=== PATIENT | male | born 1940 | race Caucasian/White ===

== ENCOUNTER 2016-06-26 17:40 | Inpatient (IN) | payer MEDICARE ==
[2016-06-26] MEDS ORDERED: SODIUM CHLORIDE 0.9% 500 ML IV STA (19:45)
[2016-06-26] MEDS ORDERED: ALBUTEROL NEBULIZED 2.5 MG/3 ML INHALATION STA (19:45)
[2016-06-26] MEDS ORDERED: IPRATROPIUM 0.5 MG/2.5 ML NEBU INHALATION STA (19:45)
[2016-06-26] MEDS ORDERED: methylPREDNISolone SOD SUCCI 125 MG/2 ML VIAL IV STA (19:45)
--- NOTE | 2016-06-26 20:02 | ED ---
Psych HPI - General Chief Complaint: Psychiatric Symptoms Stated Complaint: diff breathing Time Seen by Provider: 06/26/16 19:28 Source: patient, RN notes reviewed Mode of arrival: ambulatory - History of Present Illness Initial Comments: 75-year-old male presents to the emergency department with a chief complaint of shortness of breath. Patient states that he has chronic nasal congestion. Patient states he has noticed that this has been continued but now he just has a little bit more but currently is unable to get it out. Patient states that he hasn't had any fever or chills with this. Patient states that he also was recently put on a fentanyl patch. Patient states all this with was having some thoughts of possible thoughts of suicide never had a plan he is having these unusual thoughts. Patient states this morning he woke up and he had some or these thoughts as well. Patient states is from the fentanyl patch. Patient states this time he has no thoughts never had a plan.Patient denies any recent fever, chills, shortness of breath, chest pain, back pain, abdominal pain, nausea vomiting, numbness or tingling, dysuria or hematuria, constipation or diarrhea, headaches or visual changes, or any other current symptoms. - Related Data Home Medications Medication Instructions Recorded Confirmed Albuterol Sulfate [Ventolin HFA] 1 - 2 puff INHALATION Q6H PRN 06/25/14 06/26/16 Aspirin 81 mg PO DAILY 06/25/14 06/25/14 Finasteride [Proscar] 5 mg PO DAILY 06/25/14 06/26/16 Levothyroxine Sodium [Synthroid] 175 mcg PO DAILY 06/25/14 06/26/16 Lisinopril [Prinivil] 10 mg PO DAILY 06/25/14 06/26/16 amLODIPine [Norvasc] 10 mg PO DAILY 06/25/14 06/26/16 predniSONE 10 mg PO DAILY 06/25/14 06/26/16 Budesonide/Formoterol Fumarate 2 puff INHALATION RT-BID 06/26/16 06/26/16 [Symbicort 160-4.5 Mcg Inhaler] Montelukast [Singulair] 10 mg PO DAILY 06/26/16 06/26/16 Pregabalin [Lyrica] 150 mg PO BID 06/26/16 06/26/16 Saline Nasal [place] 1 spray EA NOSTRIL BID 06/26/16 06/26/16 fentaNYL 25MCG/HR PATCH [Duragesic 25 mcg TRANSDERM Q72H 06/26/16 06/26/16 25MCG/HR] oxyCODONE HCL/ACETAMINOPHEN 1 tab PO QID PRN 06/26/16 06/26/16 [Percocet 10-325 mg] prednisoLONE ACETATE [Pred Forte 2 sprays EA NOSTRIL BID 06/26/16 06/26/16 1%] Allergies Allergy/AdvReac Type Severity Reaction Status Date / Time cefuroxime axetil Allergy Rash/Hives Verified 06/26/16 19:50 [From Ceftin] Review of Systems ROS Statement: Those systems with pertinent positive or pertinent negative responses have been documented in the HPI. ROS Other: All systems not noted in ROS Statement are negative. Past Medical History Past Medical History: Asthma, Cancer, Hypertension, Skin Disorder, Thyroid Disorder, Vascular Disorder Additional Past Medical History / Comment(s): folicular carcinoma (thyroid) History of Any Multi-Drug Resistant Organisms: None Reported Past Surgical History: Heart Catheterization With Stent Additional Past Surgical History / Comment(s): polyp surgery, thyroid surgery, stents x2, melanoma removed from face Past Anesthesia/Blood Transfusion Reactions: No Reported Reaction Date of Last Stent Placement:: 2005 Past Psychological History: Anxiety, Depression Smoking Status: Never smoker Past Alcohol Use History: Occasional Past Drug Use History: None Reported - Past Family History Father Family Medical History: Cancer Additional Family Medical History / Comment(s): colon ca General Exam - General Exam Comments Initial Comments: General: The patient is awake and alert, in no distress, and does not appear acutely ill. Eye: Pupils are equal, round and reactive to light, extra-ocular movements are intact; there is normal conjunctiva bilaterally. No signs of icterus. Ears, nose, mouth and throat: There are moist mucous membranes and no oral lesions. Neck: The neck is supple, there is no tenderness. Cardiovascular: There is a regular rate and rhythm. No murmur, rub or gallop is appreciated. Respiratory: Lungs are clear to auscultation, respirations are non-labored, breath sounds are equal. wheeze noted, no stridor, rales, or rhonchi. Gastrointestinal: Soft, non-distended, non-tender abdomen without masses or organomegaly noted. There is no rebound or guarding present. No CVA tenderness. Bowel sounds are unremarkable. Back: There is no tenderness to palpation in the midline. There is no obvious deformity. No rashes noted. Musculoskeletal: Normal ROM, no tenderness, There is no pedal edema. There is no calf tenderness or swelling. Sensation intact. Pulses equal bilaterally 2+. Neurological: CN II-XII intact, There are no obvious motor or sensory deficits. Coordination appears grossly intact. Speech is normal. Skin: Skin is warm and dry and no rashes or lesions are noted. Psychiatric: Cooperative, appropriate mood & affect, normal judgment. Limitations: no limitations Course Vital Signs 06/26/16 06/26/16 06/26/16 18:06 20:30 20:31 Temperature 97.3 F L Pulse Rate 70 62 62 Respiratory 18 24 Rate Blood Pressure 173/81 178/85 O2 Sat by Pulse 94 L 99 Oximetry 06/26/16 06/26/16 21:54 22:00 Temperature Pulse Rate 94 94 Respiratory 18 20 Rate Blood Pressure 172/81 177/84 O2 Sat by Pulse 94 L 94 L Oximetry - Reevaluation(s) Reevaluation #1: 06/26/16 21:59 Patient did develop chest pain here in the emergency department he did have an elevated troponin at this time an EKG was repeated and the second EKG does show some ST depression in leads V3 V4 V5 and V6 which is new compared to previous EKG. At this time patient was given an aspirin as well as nitroglycerin which didn't completely resolve his pain. We'll intensity heparin was started for the patient. Reevaluation #2: 06/26/16 23:28 Patient's repeat troponin does not appear to be elevated and EKG appears to be stable at this time. We will admit continue heparin and we for cardia consult. Medical Decision Making - Medical Decision Making 75-year-old male presents emergency department with a chief complaint of shortness of breath as well as his true suicidal thoughts yesterday and ever since starting the fentanyl patch. Patient did come back with an elevated troponin. Patient stabilization. This time we are pending a repeat troponin. Patient was started on heparin. We will the patient to the hospital for continued observation and lab work. As discussed with the patient's family and they are in agreement with the plan. We will consult psychology patient suicidal thoughts. On the patient's and family's questions have been answered and plan. - Lab Data Result diagrams: 06/26/16 19:40 06/26/16 19:40 Lab Results 06/26/16 06/26/16 06/26/16 Range/Units 14:40 19:40 19:40 WBC 7.2 (3.8-10.6) k/uL RBC 4.29 L (4.30-5.90) m/uL Hgb 13.8 (13.0-17.5) gm/dL Hct 40.6 (39.0-53.0) % MCV 94.8 (80.0-100.0) fL MCH 32.2 (25.0-35.0) pg MCHC 34.0 (31.0-37.0) g/dL RDW 12.8 (11.5-15.5) % Plt Count 249 (150-450) k/uL Neutrophils % 82 % Lymphocytes % 10 % Monocytes % 5 % Eosinophils % 2 % Basophils % 0 % Neutrophils # 5.9 (1.3-7.7) k/uL Lymphocytes # 0.7 L (1.0-4.8) k/uL Monocytes # 0.4 (0-1.0) k/uL Eosinophils # 0.1 (0-0.7) k/uL Basophils # 0.0 (0-0.2) k/uL PT (9.0-12.0) sec INR (<1.1) APTT (22.0-30.0) sec D-Dimer (<0.60) mg/L FEU Sodium (137-145) mmol/L Potassium (3.5-5.1) mmol/L Chloride (98-107) mmol/L Carbon Dioxide (22-30) mmol/L Anion Gap mmol/L BUN (9-20) mg/dL Creatinine (0.66-1.25) mg/dL Est GFR (MDRD) Af Amer (>60 ml/min/1.73 sqM) Est GFR (MDRD) Non-Af (>60 ml/min/1.73 sqM) Glucose (74-99) mg/dL Calcium (8.4-10.2) mg/dL Total Bilirubin (0.2-1.3) mg/dL AST (17-59) U/L ALT (21-72) U/L Alkaline Phosphatase (38-126) U/L Total Creatine Kinase 110 (55-170) U/L CK-MB (CK-2) 1.8 (0.0-2.4) ng/mL CK-MB (CK-2) Rel Index 1.6 Troponin I 0.082 H* (0.000-0.034) ng/mL Total Protein (6.3-8.2) g/dL Albumin (3.5-5.0) g/dL Urine Color Yellow Urine Appearance Clear (Clear) Urine pH 6.0 (5.0-8.0) Ur Specific [place] 1.011 (1.001-1.035) Urine Protein Negative (Negative) Urine Glucose (UA) Negative (Negative) Urine Ketones Negative (Negative) Urine Blood Negative (Negative) Urine Nitrate Negative (Negative) Urine Bilirubin Negative (Negative) Urine Urobilinogen <2.0 (<2.0) mg/dL Ur Leukocyte Esterase Negative (Negative) Urine Opiates Screen Not Detected (NotDetected) Ur Oxycodone Screen Detected H (NotDetected) Urine Methadone Screen Not Detected (NotDetected) Ur Propoxyphene Screen Not Detected (NotDetected) Ur Barbiturates Screen Not Detected (NotDetected) U Tricyclic Antidepress Not Detected (NotDetected) Ur Phencyclidine Scrn Not Detected (NotDetected) Ur Amphetamines Screen Not Detected (NotDetected) U Methamphetamines Scrn Not Detected (NotDetected) U Benzodiazepines Scrn Not Detected (NotDetected) Urine Cocaine Screen Not Detected (NotDetected) U Marijuana (THC) Screen Not Detected (NotDetected) 06/26/16 06/26/16 06/26/16 Range/Units 19:40 19:40 22:14 WBC (3.8-10.6) k/uL RBC (4.30-5.90) m/uL Hgb (13.0-17.5) gm/dL Hct (39.0-53.0) % MCV (80.0-100.0) fL MCH (25.0-35.0) pg MCHC (31.0-37.0) g/dL RDW (11.5-15.5) % Plt Count (150-450) k/uL Neutrophils % % Lymphocytes % % Monocytes % % Eosinophils % % Basophils % % Neutrophils # (1.3-7.7) k/uL Lymphocytes # (1.0-4.8) k/uL Monocytes # (0-1.0) k/uL Eosinophils # (0-0.7) k/uL Basophils # (0-0.2) k/uL PT 9.9 (9.0-12.0) sec INR 1.0 (<1.1) APTT 23.7 (22.0-30.0) sec D-Dimer 0.87 H (<0.60) mg/L FEU Sodium 142 (137-145) mmol/L Potassium 4.0 (3.5-5.1) mmol/L Chloride 104 (98-107) mmol/L Carbon Dioxide 29 (22-30) mmol/L Anion Gap 9 mmol/L BUN 16 (9-20) mg/dL Creatinine 0.76 (0.66-1.25) mg/dL Est GFR (MDRD) Af Amer >60 (>60 ml/min/1.73 sqM) Est GFR (MDRD) Non-Af >60 (>60 ml/min/1.73 sqM) Glucose 105 H (74-99) mg/dL Calcium 9.5 (8.4-10.2) mg/dL Total Bilirubin 0.6 (0.2-1.3) mg/dL AST 26 (17-59) U/L ALT 35 (21-72) U/L Alkaline Phosphatase 79 (38-126) U/L Total Creatine Kinase (55-170) U/L CK-MB (CK-2) (0.0-2.4) ng/mL CK-MB (CK-2) Rel Index Troponin I 0.076 H* (0.000-0.034) ng/mL Total Protein 7.2 (6.3-8.2) g/dL Albumin 4.5 (3.5-5.0) g/dL Urine Color Urine Appearance (Clear) Urine pH (5.0-8.0) Ur Specific [place] (1.001-1.035) Urine Protein (Negative) Urine Glucose (UA) (Negative) Urine Ketones (Negative) Urine Blood (Negative) Urine Nitrate (Negative) Urine Bilirubin (Negative) Urine Urobilinogen (<2.0) mg/dL Ur Leukocyte Esterase (Negative) Urine Opiates Screen (NotDetected) Ur Oxycodone Screen (NotDetected) Urine Methadone Screen (NotDetected) Ur Propoxyphene Screen (NotDetected) Ur Barbiturates Screen (NotDetected) U Tricyclic Antidepress (NotDetected) Ur Phencyclidine Scrn (NotDetected) Ur Amphetamines Screen (NotDetected) U Methamphetamines Scrn (NotDetected) U Benzodiazepines Scrn (NotDetected) Urine Cocaine Screen (NotDetected) U Marijuana (THC) Screen (NotDetected) 06/26/16 20:35 Normal sinus rhythm, incomplete right bundle-branch, T-wave is flat in V5 and V6 , no ST elevation 06/26/16 22:00 Normal sinus rhythm with sinus arrhythmia 96, incomplete right bundle jamil, ST depression in leads V3 through V6, prolonged QT 06/26/16 23:00 Normal sinus rhythm 82, incomplete right bundle-branch block, as she weighs inversion in V4 5 and aVF similar to previous EKG. Disposition Clinical Impression: Suicidal thoughts, NSTEMI (non-ST elevated myocardial infarction) Disposition: ADMITTED IP TO THIS [facility] Condition: Stable Referrals: Krystian Salazar MD [Primary Care Provider] - 1-2 days Time of Disposition: 23:31 Decision Date: 06/26/16 Decision Time: 23:31
[2016-06-26 20:38] LABS: Basophils % (A) 0 %; CH 32.9; CHCM 34.9; Eosinophils # (A) 0.1 k/uL (0-0.7); Eosinophils % (A) 2 %; HCT 40.6 % (39.0-53.0); HDW 2.59; HGB 13.8 gm/dL (13.0-17.5); Luc # (Auto) 0.08; Luc % (Auto) 1; Lymphocytes # (A) 0.7 k/uL (1.0-4.8); Lymphocytes % (A) 10 %; MCH 32.2 pg (25.0-35.0); MCV 94.8 fL (80.0-100.0); Mean Platelet Volume 7.4; Monocytes # (A) 0.4 k/uL (0-1.0); Monocytes % (A) 5 %; Neutrophils # (A) 5.9 k/uL (1.3-7.7); Neutrophils % (A) 82 %; RBC 4.29 m/uL (4.30-5.90); RDW 12.8 % (11.5-15.5); WBC 7.2 k/uL (3.8-10.6); WBC (Perox) 7.42
[2016-06-26 20:41] LABS: Appearance,Urine Clear (Clear); Bilirubin,Urine Negative (Negative); Glucose,Urine (UA) Negative (Negative); Ketones,Urine Negative (Negative); Leukocyte Esterase,Urine Negative (Negative); Nitrite,Urine Negative (Negative); Protein,Urine Negative (Negative); Specific Gravity,Urine 1.011 (1.001-1.035); UA Billing (MACRO vs. MICRO) CHEM; Urobilinogen,Urine <2.0 mg/dL (<2.0)
[2016-06-26 20:51] LABS: ALT 35 U/L (21-72); AST 26 U/L (17-59); Alkaline Phosphatase 79 U/L (38-126); Anion Gap 9 mmol/L; Blood Urea Nitrogen 16 mg/dL (9-20); Calcium 9.5 mg/dL (8.4-10.2); Carbon Dioxide 29 mmol/L (22-30); Chloride 104 mmol/L (98-107); Glucose 105 mg/dL (74-99); Non-African American GFR(MDRD) >60 (>60 ml/min/1.73 sqM); Partial Thromboplastin Time 23.7 sec (22.0-30.0); Prothrombin Time 9.9 sec (9.0-12.0); Sodium 142 mmol/L (137-145); Total Bilirubin 0.6 mg/dL (0.2-1.3); Total Protein 7.2 g/dL (6.3-8.2)
[2016-06-26] MEDS ORDERED: RX INFO: IV CONTRAST WAS GIVEN 1 EACH MISC MISCELLANE PRN (21:03)
[2016-06-26 21:04] LABS: Creatine Kinase MB 1.8 ng/mL (0.0-2.4)
[2016-06-26 21:05] LABS: Troponin I 0.082 ng/mL (0.000-0.034)
[2016-06-26] MEDS ORDERED: NITROGLYCERIN SL TABS 0.4 MG TAB SUBLINGUAL STA (21:41)
[2016-06-26] MEDS ORDERED: HEPARIN SODIUM,PORCINE 5,000 UNIT/ML 1 ML VIAL IV ONE (21:50)
[2016-06-26] MEDS ORDERED: HEPARIN SODIUM,PORCINE 5,000 UNIT/ML 1 ML VIAL IV PRN (21:50)
[2016-06-26] MEDS ORDERED: ASPIRIN 81 MG CHEW PO STA (21:58)
--- NOTE | 2016-06-26 22:25 | CT ---
EXAMINATION TYPE: CT chest angio for PE DATE OF EXAM: 06/26/2016 10:17 PM COMPARISON: NONE HISTORY: Chest pain CT DLP: 300.7 mGycm Automated exposure control for dose reduction was used. CONTRAST: CT Chest for pulmonary embolism performed with with IV Contrast, patient injected with 100 mL of Omni paque 350. FINDINGS: There are 3-D post processed images. Lungs are clear of consolidation. There is no pleural effusion. There is no sign of a pulmonary mass. There is no pericardial effusion. Heart size is normal. Thoracic aorta is atheromatous. There is no evidence of aneurysm or dissection. There is normal contrast opacification of the pulmonary arteries. I see no filling defect. There are no hilar masses. There is no mediastinal adenopathy. IMPRESSION: Atherosclerotic vascular disease. No evidence of pulmonary embolism. Minimal pulmonary fibrotic port[place] es at the lung bases.
[2016-06-26] MEDS: HEPARIN SODIUM,PORCINE/D5W PMX 25,000 UNIT in DEXTROSE/WATER 1 500ML.BAG IV SCH (22:33)
[2016-06-26] MEDS ORDERED: ALBUTEROL NEBULIZED 2.5 MG/3 ML INHALATION PRN (23:37)
[2016-06-27 01:22] VITALS: BMI 26.2
[2016-06-27] MEDS: oxyCODONE-APAP 10-325MG 1 EACH TAB PO PRN ×2 (01:48→20:30)
[2016-06-27] MEDS: SODIUM CHLORIDE 0.9% 1,000 ML IV SCH ×2 (01:48→12:36)
[2016-06-27 02:22] LABS: Creatine Kinase MB 1.3 ng/mL (0.0-2.4)
[2016-06-27 02:36] LABS: Troponin I 0.061 ng/mL (0.000-0.034)
[2016-06-27 02:48] VITALS: RESP 18
[2016-06-27 05:40] LABS: Basophils % (A) 0 %; CH 32.6; CHCM 34.4; Eosinophils % (A) 0 %; HCT 36.4 % (39.0-53.0); HDW 2.55; HGB 12.1 gm/dL (13.0-17.5); Luc # (Auto) 0.01; Luc % (Auto) 0; Lymphocytes # (A) 0.3 k/uL (1.0-4.8); Lymphocytes % (A) 7 %; MCH 31.6 pg (25.0-35.0); MCHC 33.2 g/dL (31.0-37.0); MCV 95.2 fL (80.0-100.0); Mean Platelet Volume 6.9; Monocytes # (A) 0.1 k/uL (0-1.0); Monocytes % (A) 2 %; Neutrophils # (A) 4.2 k/uL (1.3-7.7); Neutrophils % (A) 90 %; RBC 3.83 m/uL (4.30-5.90); RDW 12.9 % (11.5-15.5); WBC 4.6 k/uL (3.8-10.6); WBC (Perox) 4.92
[2016-06-27 06:06] LABS: Cholesterol 223 mg/dL (<200); HDL Cholesterol 66 mg/dL (40-60); Triglycerides 60 mg/dL (<150)
[2016-06-27] MEDS: LEVOTHYROXINE 75 MCG TAB PO SCH (06:37)
[2016-06-27] MEDS: LEVOTHYROXINE 100 MCG TAB PO SCH (06:37)
[2016-06-27] MEDS: SYMBICORT 160-4.5 MCG INHALER INHALATION SCH ×2 (08:35→19:12)
[2016-06-27] MEDS: ASPIRIN 325 MG TAB PO SCH (08:51)
[2016-06-27] MEDS: predniSONE 10 MG TAB PO SCH (08:51)
[2016-06-27] MEDS: LISINOPRIL 10 MG TAB PO SCH (08:51)
[2016-06-27] MEDS: FINASTERIDE 5 MG TAB PO SCH (08:51)
[2016-06-27] MEDS: PREGABALIN 75 MG CAP PO SCH ×3 (08:51→20:20)
[2016-06-27] MEDS: MONTELUKAST 10 MG TAB PO SCH (08:51)
[2016-06-27] MEDS: amLODIPine 10 MG TAB PO SCH (08:51)
[2016-06-27] MEDS: SODIUM CHLORIDE 0.65% NASAL SPRAY 44 ML BTL NASAL SCH ×2 (08:57→20:20)
[2016-06-27 09:25] LABS: Creatine Kinase MB 1.3 ng/mL (0.0-2.4)
[2016-06-27 09:30] LABS: Troponin I 0.059 ng/mL (0.000-0.034)
--- NOTE | 2016-06-27 11:31 | CONS ---
DATE OF CONSULTATION: Sp Sam is a 75-year-old male patient who presented to the emergency room complaining of shortness of breath. He had appointment with primary cbx operator, Dr. Casey Puga last week, but he was not feeling well. He says he has chronic nasal congestion and in the past CT scan has shown hyperdense lesion suggestive of aspergillus and this was in 2015. He complained of shortness of breath and his ECG initially showed T-wave inversions in leads V5 and V6. Subsequently he became more short of breath and had some chest discomfort. At that time he had sinus tachycardia with upsloping ST depressions but new, from V2 to V6. Today his 12-lead ECG shows T wave inversions in V4, V5, V6. He has known coronary disease and has had a coronary stent placed many years back with Dr. Casey Puga. His medications at home include albuterol, aspirin, finasteride, levothyroxine, lisinopril, amlodipine, Lyrica, Singulair, fentanyl and prednisone. REVIEW OF SYSTEMS: No fever, chills, or rigors. No cough or expectoration. No nausea, vomiting or diarrhea. No hematuria or dysuria. No strokes or seizures. No skin lesions. Musculoskeletal, he has severe back pain and he has metastatic cancer in the lower spine. He has thyroid cancer. SOCIAL HISTORY: He is a never smoker. Past medical history follicular carcinoma of the thyroid, history of COPD. Family history of colon CA. On examination, his blood pressure on admission was 173/81 mmHg and 178/85 mmHg, pulse rate in the 60s. Breath sounds are reduced bilaterally but there are no rhonchi or crackles at this time. Definitely the breath sounds are reduced bilaterally. Heart sounds are S1 and S2 soft. No murmurs, no gallops. Abdomen is soft, nontender. Extremities are warm. No edema. The 12-ECGs as described above. The labs were reviewed and his hemoglobin is 12.1. White count is normal. The electrolytes are normal. Liver functions normal. Troponins borderline but they show a definite downward trend. LDL is 145. IMPRESSION: 1. Non-Q-wave myocardial infarction. 2. Congestive heart failure with shortness of breath during this admission. 3. Dyslipidemia. 4. Coronary stenting for coronary artery disease in the past with Dr. Casey Puga. 5. 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 6. Uncontrolled hypertension. Medication list was reviewed. I would add metoprolol 50 mg twice daily as well as statins to his current regimen and maximize antihypertensive therapy.
[2016-06-27] MEDS: NITROGLYCERIN SL TABS 0.4 MG TAB SUBLINGUAL PRN ×2 (12:35→18:20)
[2016-06-27] MEDS: METOPROLOL TARTRATE 50 MG TAB PO SCH ×2 (12:36→20:19)
[2016-06-27] MEDS: ATORVASTATIN 40 MG TAB PO SCH (12:36)
--- NOTE | 2016-06-27 13:24 | P.CNPUL ---
History of Present Illness Consult date: 06/27/16 Requesting physician: Michaela Lopez Reason for consult: dyspnea, COPD Chief complaint: Shortness of breath, chest tightness History of present illness: This is a very pleasant 75-year-old gentleman who follows with Dr. Salazar as his primary care physician. 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 He has been seen at the [facility] and has undergone radiation therapy there as well as at [facility]. He has had continued and ongoing pain and follows with Dr. Watters who has him on [place], Percocet and was recently started on a fentanyl patch. The patient was also recently seen for recurrent polyps in his sinuses at the [facility] and there was a new nasal spray started with steroids. The last few days the patient has felt anxious, nervous and did have some suicidal thoughts all of which were quite new for him. He also developed shortness of breath and chest tightness. He presented here to the emergency room for the same. While there he states he did receive a breathing treatment with several vials of medicine and he subsequently developed worsening chest tightness. The CT angiogram ruled out pulmonary embolism. His lungs were clear of consolidation. There is no pleural effusion. No pulmonary mass. No pericardial effusion. There was some noted atherosclerotic vascular disease only. Minimal pulmonary fibrotic changes at the bases. Lab results did reveal a small troponin leak and cardiology was consulted as well. Presently, the patient is seen in consultation on the selective care unit. He is awake and alert in no acute distress. He recently had recurrent chest tightness and was given sublingual nitroglycerin with some minimal relief. An EKG did reveal some T-wave inversions in the lateral leads. He denies any worsening shortness of breath at this time. He is maintaining good O2 saturations in the mid 90s on room air. He has been afebrile. No leukocytosis. Review of Systems 14 point review of system was conducted. All negative other than as mentioned in the HPI. 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 back pain. foot numbness History of Any Multi-Drug Resistant Organisms: None Reported Past Surgical History: Heart Catheterization With Stent Additional Past Surgical History / Comment(s): polyp surgery, thyroid surgery, stents x2, melanoma removed from face Past Anesthesia/Blood Transfusion Reactions: No Reported Reaction Date of Last Stent Placement:: 2005 Past Psychological History: Anxiety, Depression Smoking Status: Former smoker Past Alcohol Use History: Occasional Past Drug Use History: None Reported - Past Family History Father Family Medical History: Cancer Additional Family Medical History / Comment(s): colon ca Medications and Allergies Home Medications Medication Instructions Recorded Confirmed Type Albuterol Sulfate [Ventolin HFA] 1 - 2 puff INHALATION Q6H PRN 06/25/14 History Aspirin 81 mg PO DAILY 06/25/14 06/27/16 History Finasteride [Proscar] 5 mg PO DAILY 06/25/14 06/26/16 History Levothyroxine Sodium [Synthroid] 175 mcg PO DAILY 06/25/14 06/26/16 History Lisinopril [Prinivil] 10 mg PO DAILY 06/25/14 06/26/16 History amLODIPine [Norvasc] 10 mg PO DAILY 06/25/14 06/26/16 History predniSONE 10 mg PO DAILY 06/25/14 06/26/16 History Budesonide/Formoterol Fumarate 2 puff INHALATION RT-BID 06/26/16 06/26/16 History [Symbicort 160-4.5 Mcg Inhaler] Montelukast [Singulair] 10 mg PO DAILY 06/26/16 06/26/16 History Pregabalin [Lyrica] 150 mg PO BID 06/26/16 06/26/16 History Saline Nasal [place] 1 spray EA NOSTRIL BID 06/26/16 06/26/16 History fentaNYL 25MCG/HR PATCH [Duragesic 25 mcg TRANSDERM Q72H 06/26/16 06/26/16 History 25MCG/HR] oxyCODONE HCL/ACETAMINOPHEN 1 tab PO QID PRN 06/26/16 06/26/16 History [Percocet 10-325 mg] prednisoLONE ACETATE [Pred Forte 2 sprays EA NOSTRIL BID 06/26/16 06/26/16 History 1%] Allergies Allergy/AdvReac Type Severity Reaction Status Date / Time cefuroxime axetil Allergy Rash/Hives Verified 06/26/16 19:50 [From Ceftin] Physical Exam Vitals: Vital Signs Temp Pulse Pulse Resp BP BP Pulse Ox 06/27/16 08:00 97.3 F L 72 18 156/81 95 06/27/16 04:00 97.2 F L 82 18 127/69 95 06/27/16 01:15 97.3 F L 76 18 152/88 95 06/27/16 00:57 84 162/79 96 Intake and Output 06/26/16 06/27/16 06/27/16 22:59 06:59 14:59 Intake Total 560.024 Output Total 500 Balance 60.024 Intake: Intake, IV Titration 560.024 Amount Heparin Sodium,Porcine/ 160.024 D5w Pmx 25,000 unit In Dextrose/Water 1 500ml. bag @ 12 UNITS/KG/HR 19. 92 mls/hr IV .Q24H JOE Rx #:[id number] Sodium Chloride 0.9% 1, 400 000 ml @ 100 mls/hr IV . Q10H JOE Rx#:[id number] Output: Urine 500 Other: Weight 76.2 kg GENERAL EXAM: Alert, in no apparent distress. HEAD: Normocephalic. EYES: Normal reaction of pupils, equal size. NOSE: Clear with pink turbinates. THROAT: No erythema or exudates. NECK: No masses, no JVD. CHEST: No chest wall deformity. LUNGS: Equal air entry with faint crackles in the posterior bases. Diminished. CVS: S1 and S2 normal with no audible murmurs, regular rhythm. ABDOMEN: No hepatosplenomegaly, normal bowel sounds, no guarding or rigidity. Extremities: There is no peripheral edema. No clubbing, no cyanosis. Peripheral pulses are intact. Results - Laboratory Findings CBC and BMP: 06/27/16 05:09 06/26/16 19:40 PT/INR, D-dimer PT 9.9 sec (9.0-12.0) 06/26/16 19:40 INR 1.0 (<1.1) 06/26/16 19:40 D-Dimer 0.87 mg/L FEU (<0.60) H 06/26/16 19:40 Abnormal lab findings: Abnormal Labs 06/27/16 06/27/16 06/27/16 01:20 05:09 05:09 RBC 3.83 L Hgb 12.1 L Hct 36.4 L Lymphocytes # 0.3 L APTT 34.3 H Troponin I 0.061 H* Cholesterol LDL Cholesterol, Calc HDL Cholesterol 06/27/16 06/27/16 06/27/16 05:09 07:35 12:04 RBC Hgb Hct Lymphocytes # APTT 51.8 H Troponin I 0.059 H* Cholesterol 223 H LDL Cholesterol, Calc 145 H HDL Cholesterol 66 H - Diagnostic Findings CT scan - chest: image reviewed Assessment and Plan Plan: Impression: #1 Dyspnea, multifactorial in a patient with a known history of chronic obstructive pulmonary disease with remote history of smoking, anxiety, severe back pain, and chest discomfort with mild troponin leak. #2 Acute exacerbation chronic obstructive pulmonary disease. #3 Chest pain in a patient with previous history of coronary artery disease and stent placements with mild troponin leak and T-wave inversions in lateral leads. #3 Metastatic lesions to L5 status post radiation therapy with continued and ongoing pain issues and requiring narcotics in the form of Percocet and fentanyl patch. #5 Suicidal ideations possibly related to new use of fentanyl patch. #6 Coronary artery disease with previous stent placement. #7 Hypothyroidism secondary to history of thyroid cancer status post thyroidectomy. #8 hypertension. Plan: The patient was seen and evaluated by Dr. Travis. His CAT scan of the chest and labs were reviewed. Continue with his bronchodilators and may switch him from albuterol to Xopenex to avoid any further tachyarrhythmias. We'll continue with his Symbicort. He is on Singulair as well. Cardiology is on the case regarding the chest pain and troponin leak. He'll need a psych evaluation regarding his suicidal ideations. We will cautiously use narcotics to control his back pain secondary to the metastatic lesions. We'll continue to follow make further recommendations based on his clinical status. Time with Patient: Greater than 30
[2016-06-27] MEDS: LEVALBUTEROL NEB 1.25 MG/3 ML AMP INHALATION SCH ×2 (15:13→19:12)
--- NOTE | 2016-06-27 18:10 | P.CN ---
Psychiatric Consult - . Consult date: 06/27/16 Consult:: 06/27/16 18:05 IDENTIFYING DATA: 75-year-old male patient HPI: Patient admitted to the medical floor at [facility] with complaint of shortness of breath. Per chart history patient also described chronic nasal congestion. He has been dealing with pain issues and was recently placed on a fentanyl patch which was new and also a new pain medication as well as lyrica. He says he has no idea what it did to him but it put him on cloud 9 were he was feeling confused and relays that he did have some thoughts about being better off gone as well as thoughts of harm to himself. He states that he is not feeling confused anymore and no longer has any thoughts of harm to himself. He describes his mood today as pretty good. PAST PSYCHIATRIC HISTORY: Patient denies any psychiatric history. He has never had any psychiatric hospital elations. He has no history of suicide attempts. PMH: Asthma, hypertension, in disorder, vascular disorder, melanoma, COPD, thyroid cancer with thyroidectomy, coronary artery disease with stent placement , metastatic focus L5 spine ALLERGIES: Cefuroxime MEDICATIONS: Norvasc, aspirin, Lipitor, Symbicort, Proscar, heparin, Xopenex, Synthroid, Zestril, Lopressor, singular, Nitrostat when necessary, Percocet when necessary, prednisone, Pred Forte day, Lyrica, deep-sea nasal CHEMICAL DEPENDENCY HISTORY: Occasional history of alcohol in the past. FAMILY PSYCHIATRIC HISTORY: Denies FAMILY CHEMICAL DEPENDENCY HISTORY: None known at this time. SOCIAL HISTORY: Currently lives with his in a home. He has 2 children and 4 grandchildren. He has worked as a mechanical lead. MENTAL STATUS EXAM: He is alert and cooperative with the interview. His is present. His speech is fluent, not rapid or pressured. He is oriented to place and date. He describes his mood as "pretty good." He denies any thoughts of harm to self. He does not voice any thoughts of harm to others. No evidence of psychosis or agitation. Thought processes are organized. IMPRESSIONS: Likely recent delirium related to medications, currently cleared. PLAN: No new psychotropic medications recommendations for this patient. He denies any suicidal ideations. No evidence of psychosis. I do not see any criteria for inpatient psychiatric hospitalization. Psychiatry can follow up to monitor regarding improved status.
[2016-06-27] MEDS: HEPARIN SODIUM,PORCINE/D5W PMX 25,000 UNIT in DEXTROSE/WATER 1 500ML.BAG IV SCH (20:17)
[2016-06-27] MEDS: prednisoLONE ACETATE 1% OPHTH DROPS 1 ML BTL MISCELLANE SCH (20:20)
--- NOTE | 2016-06-27 22:22 | HP ---
DATE OF ADMISSION: 06/26/2016 CHIEF COMPLAINT: Shortness of breath, change in mental status and chest pain. HISTORY OF PRESENT ILLNESS: This 75-year-old gentleman with a past medical history of multiple medical problems including asthma, COPD, history of hypertension, history of hypothyroidism, history of vascular disorder, history of thyroid, status post thyroidectomy, metastatic lesion, of the spine with chemo and radiation last treatment in October 2015 [facility] also had foot numbness. The patient also had CAD, stent, history of anxiety, depression also. The patient apparently also took multiple pain medications and a couple of days ago an extra pain patch of 25 mcg had been added per [facility] recommendations. The patient was taken to [facility] yesterday with complaints of congestion, shortness of breath, and some chest discomfort, and also change in mental status. The patient took the patch away and the patient felt much better according to the family and the patient was admitted to the hospital for further evaluation and treatment. There is no history of fever, rigors or chills. No history of headache, loss of consciousness or seizures. After admission the troponins found to be 0.076, 0.061, and 0.059 and hemoglobin is 12.1 and cardiology evaluation has been sought. The patient has been evaluated by Dr. Salazar in the outpatient setting. There is no history of fever, rigors or chills. No history of headache, loss of consciousness or seizures at this time. PAST MEDICAL HISTORY: History of asthma, chronic obstructive pulmonary disease, history of hypertension, history of follicular lymphoma, history of coronary artery disease and stent and anxiety, depression. Medications prior to admission include: 1. Aspirin 81 mg daily. 2. Prednisone 10 mg daily. 3. Norvasc 10 mg p.o. daily. 4. Prinivil 10 mg daily. 5. Synthroid 175 mcg p.o. daily. 6. Proscar 5 mg p.o. daily. 7. Ventolin HFA one to two sprays q6h p.r.n. 9. Singulair 10 mg p.o. daily. 10. Percocet 10 mg q.i.d. p.r.n. 11. Duragesic patch 25 mcg q72 hours. 12. Saline nasal spray one spray b.i.d. 13. Lyrica 150 mg b.i.d. 14. Symbicort 160/4.5 2 puffs b.i.d. ALLERGIES: CEFTIN. FAMILY HISTORY: History of colon cancer in the family. SOCIAL HISTORY: Previous history of smoking. No history of current smoking or alcohol intake. REVIEW OF SYSTEMS: ENT: No diminished vision. No diminished hearing. CARDIOVASCULAR: As mentioned earlier. RESPIRATORY: As mentioned earlier. GI: No nausea or vomiting. : No dysuria. No numbness or weakness. Allergy/immunology: No asthma or hayfever. MUSCULOSKELETAL: As mentioned earlier. HEMATOLOGY/ONCOLOGY: No history of anemia. ENDOCRINE: No history of diabetes, hypothyroidism. CONSTITUTIONAL: As mentioned earlier. DERMATOLOGY: Negative. RHEUMATOLOGY: Negative. PSYCHIATRY: As mentioned earlier. HEMATOLOGY/ONCOLOGY: As mentioned earlier. PHYSICAL EXAMINATION: The patient is alert and oriented times three. Pulse 70. Blood pressure 140/82. Respiratory rate 18. Temperature 97.2. Pulse ox 95% on room air. HEENT: Conjunctivae normal. Oral mucosa moist. NECK: No jugular venous distention. No carotid bruits. No lymph node enlargement. No thyroid enlargement. CARDIOVASCULAR SYSTEM: S1, S2 muffled. No S3, no S4. RESPIRATORY: Breath sounds diminished at the bases. A few scattered rhonchi and crackles. ABDOMEN: Soft, nontender. No mass palpable. No hepatosplenomegaly. LEGS: No edema. No swelling. Nervous system: Higher functions as mentioned. Moves all 4 limbs, No focal deficits. LYMPHATICS: No lymph nodes palpable in the neck, axillae or groin. SKIN: No ulcer, rash or bleeding. LABS: WBC 4.0, hemoglobin 12.1. Troponin 0.059. ASSESSMENT: 1. Shortness of breath, multifactorial, possible chronic obstructive pulmonary disease, acute exacerbation. 2. Chest pain, possible acute non-ST segment elevation myocardial infarction with troponin 0.076. 3. Hyperlipidemia. 4. Change in mental status, possible metabolic encephalopathy, possibly drug-induced, multifactorial. 5. Anemia, normocytic. 6. Metastatic lesion of the L5 status post radiation and chemo from follicular carcinoma of the thyroid. 7. History of asthma, chronic obstructive pulmonary disease. 8. Hypertension essential. 9. History of coronary artery disease and stent. 10. Anxiety, depression, not otherwise specified. 11. Remote history of nicotine dependence. 12. FULL CODE. RECOMMENDATIONS AND DISCUSSION: In this 75-year-old gentleman who presented with multiple complex medical issues, we will monitor the patient closely, continue the current medications and continue symptomatic treatment. Otherwise, at this time I would recommend to continue the current medications, continue to optimize the bronchodilator treatment. Pulmonary has been consulted. Cardiology also consulted for elevated troponin. Medical management recommended at this time; Overall prognosis extremely guarded because of multiple complex medical issues. Otherwise, DVT prophylaxis. Continue with IV heparin per cardiology at this time. The prognosis guarded and further recommendations to follow. The patient was started on prednisone drip and discontinue the Duragesic patch which might have contributed to the current episode of change in mental status as well. Otherwise, prognosis guarded which I discussed at length with multiple members of the family and copy of dictation being forwarded to Dr. Salazar who is the primary care physician. Also recommend the pain management follow-up as an outpatient. NAHUN
[2016-06-28 06:26] LABS: Basophils % (A) 0 %; CHCM 34.5; Eosinophils # (A) 0.2 k/uL (0-0.7); Eosinophils % (A) 2 %; HCT 38.1 % (39.0-53.0); HDW 2.58; HGB 12.6 gm/dL (13.0-17.5); Luc # (Auto) 0.12; Luc % (Auto) 2; Lymphocytes % (A) 14 %; MCH 31.9 pg (25.0-35.0); MCHC 33.2 g/dL (31.0-37.0); MCV 96.1 fL (80.0-100.0); Mean Platelet Volume 7.2; Monocytes # (A) 0.4 k/uL (0-1.0); Monocytes % (A) 6 %; Neutrophils # (A) 5.6 k/uL (1.3-7.7); Neutrophils % (A) 76 %; RBC 3.96 m/uL (4.30-5.90); RDW 13.1 % (11.5-15.5); WBC 7.3 k/uL (3.8-10.6); WBC (Perox) 7.59
[2016-06-28] MEDS: LEVOTHYROXINE 100 MCG TAB PO SCH (06:46)
[2016-06-28] MEDS: LEVOTHYROXINE 75 MCG TAB PO SCH (06:46)
[2016-06-28 07:29] LABS: Anion Gap 10 mmol/L; Blood Urea Nitrogen 16 mg/dL (9-20); Calcium 8.9 mg/dL (8.4-10.2); Carbon Dioxide 26 mmol/L (22-30); Chloride 109 mmol/L (98-107); Glucose 108 mg/dL (74-99); Non-African American GFR(MDRD) >60 (>60 ml/min/1.73 sqM); Potassium 3.6 mmol/L (3.5-5.1); Sodium 145 mmol/L (137-145)
[2016-06-28] MEDS: LEVALBUTEROL NEB 1.25 MG/3 ML AMP INHALATION SCH ×4 (08:55→20:25)
[2016-06-28] MEDS: SYMBICORT 160-4.5 MCG INHALER INHALATION SCH ×2 (08:56→20:25)
[2016-06-28] MEDS: LISINOPRIL 10 MG TAB PO SCH (09:04)
[2016-06-28] MEDS: METOPROLOL TARTRATE 50 MG TAB PO SCH ×2 (09:04→21:32)
[2016-06-28] MEDS: amLODIPine 10 MG TAB PO SCH (09:04)
[2016-06-28] MEDS: FINASTERIDE 5 MG TAB PO SCH (09:04)
[2016-06-28] MEDS: MONTELUKAST 10 MG TAB PO SCH (09:04)
[2016-06-28] MEDS: predniSONE 10 MG TAB PO SCH (09:04)
[2016-06-28] MEDS: PREGABALIN 75 MG CAP PO SCH ×2 (09:05→21:32)
[2016-06-28] MEDS: ASPIRIN 325 MG TAB PO SCH (09:05)
[2016-06-28] MEDS: ATORVASTATIN 40 MG TAB PO SCH (09:05)
[2016-06-28] MEDS: prednisoLONE ACETATE 1% OPHTH DROPS 1 ML BTL MISCELLANE SCH ×2 (09:06→21:32)
[2016-06-28] MEDS: SODIUM CHLORIDE 0.65% NASAL SPRAY 44 ML BTL NASAL SCH ×2 (09:06→21:32)
[2016-06-28] MEDS ORDERED: LISINOPRIL 10 MG TAB PO STA (10:07)
[2016-06-28] MEDS: oxyCODONE-APAP 10-325MG 1 EACH TAB PO PRN ×2 (10:33→23:48)
--- NOTE | 2016-06-28 12:15 | P.PN ---
Subjective 75-year-old gentleman seen yesterday by myself and Dr. Sharif. He came both some shortness of breath likely related is primarily anxiety and some underlying COPD. Doing much better today. Not requiring any supplemental oxygen therapy. Also came in with some chest discomfort hadn't mildly elevated troponin level. Cardiology is seeing him for that. His primary problem is mostly pain issues related to underlying metastatic deposits to the spine. He does have a history of underlying thyroid cancer. Seen by psychiatry. From my perspective could be discharged home. No major issues keeping him in the hospital. He sees one of my partners as his primary physician. Objective - Vital Signs Vital signs: Vital Signs Temp 97 F L 06/28/16 08:00 Pulse 60 06/28/16 09:02 Resp 18 06/28/16 08:00 BP 150/93 06/28/16 08:00 Pulse Ox 94 L 06/28/16 08:00 Intake & Output 06/27/16 06/28/16 06/28/16 18:59 06:59 18:59 Intake Total 1018 1419.976 120 Output Total 1375 Balance 1018 44.976 120 Weight 75.5 kg Intake: Intake, IV Titration 700 339.976 Amount Heparin Sodium,Porcine/ 339.976 D5w Pmx 25,000 unit In Dextrose/Water 1 500ml. bag @ 12 UNITS/KG/HR 19. 92 mls/hr IV .Q24H JOE Rx #:[id number] Sodium Chloride 0.9% 1, 700 000 ml @ 100 mls/hr IV . Q10H JOE Rx#:[id number] Oral 318 1080 120 Output: Urine 1375 Other: # Voids 2 - Exam No acute distress, oriented 3. HEENT stable. mucous membranes are moist. No oral lesions. Neck supple. Full range of motion. No adenopathy. Cardiovascular examination was regular rhythm rate. S1-S2 normal. Lungs reveal few scattered mild rhonchi. No wheezes or crackles. Abdomen soft bowel sounds are heard. Extremities are intact. - Labs CBC & Chem 7: 06/28/16 06:06 06/28/16 06:06 Labs: Abnormal Lab Results - Last 24 Hours (Table) 06/27/16 06/28/16 06/28/16 Range/Units 12:04 06:06 06:06 RBC 3.96 L (4.30-5.90) m/uL Hgb 12.6 L (13.0-17.5) gm/dL Hct 38.1 L (39.0-53.0) % APTT 51.8 H (22.0-30.0) sec Chloride 109 H (98-107) mmol/L Glucose 108 H (74-99) mg/dL 06/28/16 Range/Units 06:06 RBC (4.30-5.90) m/uL Hgb (13.0-17.5) gm/dL Hct (39.0-53.0) % APTT 46.2 H (22.0-30.0) sec Chloride (98-107) mmol/L Glucose (74-99) mg/dL Assessment and Plan (1) NSTEMI (non-ST elevated myocardial infarction) Status: Acute (2) Suicidal thoughts Status: Acute (3) COPD (chronic obstructive pulmonary disease) Status: Acute Plan: Plan The patient's doing well. Could be discharged home. No discharge recommendations are made. Was seen by psychiatry. Part of the problem and he was taking the fentanyl patch which was recently prescribed along with his Percocet and [place] all at the same time. Time with Patient: Less than 30
--- NOTE | 2016-06-28 14:42 | PN ---
Sp Sam is a 75-year-old male patient who presented with chest discomfort and shortness of breath and non-Q wave WA. He has metastatic thyroid cancer with metastasis to the spine. He is pain free. He is resting comfortably in bed. His vitals are stable. He is afebrile, 97 degrees Fahrenheit. His pulse rate is in the 60s. His blood pressure is 146/75 mmHg and 150/93 mmHg. Breath sounds are normal. Heart sounds S1, S2 are soft. Lungs are clear to auscultation. Extremities are warm. No edema. His medications are reviewed. He is on aspirin. Continues with atorvastatin, but he stated that he had a problem with atorvastatin therefore I have switched him to Pravachol and I did speak to him that he does need the statin because he has had non-Q wave myocardial infarction. In addition, he is on metoprolol 50 mg twice daily and lisinopril 20 mg daily was well as amlodipine 10 mg daily. IMPRESSION: 1. Non-Q-wave myocardial infarction. 2. Hypertension. 3. Metastatic thyroid cancer with metastasis to the spine. SUGGEST: Maximize antihypertensive therapy and follow with Dr. Casey Puga as an outpatient. I will treat him medically.
--- NOTE | 2016-06-28 17:17 | P.PN ---
Progress Note - Text Interval history: Patient is seen today in psychiatric follow-up. He talks about discharge planning for tomorrow. From a mood standpoint his mood seems to be holding up well. He denies any thoughts of harm to self. He has been eating. He had a visit with his prior to me seeing him in follow-up. He talks about being excited to see his dog tomorrow. Mental status exam: He is alert and cooperative. Speech is fluent, not rapid or pressured. Thought processes organized. His mood seems to be stable. He denies any thoughts of harm to self. No evidence of psychosis or agitation. Plan: No new recommendations at this time. He is denying any thoughts of harm to self. There is no criteria for inpatient psychiatric hospitalization. He is looking at discharge planning for tomorrow.
--- NOTE | 2016-06-28 22:49 | PN ---
DATE OF SERVICE: 06/28/2016 This 75-year-old gentleman with a past medical history of multiple medical problems was admitted with change in mental status, shortness of breath as well as chest pain. The patient also has a history of chest pain with acute non-ST segment elevation myocardial infarction. The patient also had metastatic thyroid cancer with L5 lesion. The patient is followed by [facility] also. Multiple consultants are following the patient closely in the past. PAST MEDICAL HISTORY: Reviewed. REVIEW OF SYSTEMS: CARDIOVASCULAR: No angina or palpitations. GI: As mentioned. : No dysuria. NERVOUS SYSTEM: No numbness or weakness. Current medications are reviewed and include Norvasc 10 mg daily, aspirin 325 mg daily, 2 puffs b.i.d., Proscar 5 mg subcu b.i.d., Xopenex 1.25 q.i.d., Synthroid 175 mcg p.o. daily, Zestril 10 mg Lopressor 50 mg p.o. b.i.d., Singulair 10 mg, Nitrostat 0.5 mg, Percocet 10 mg q.i.d. p.r.n., Pravachol 20 mg at bedtime, prednisone 10 mg daily, Lyrica 150 mg daily, sodium chloride. PHYSICAL EXAMINATION: The patient is alert, oriented x3. Pulse is 60, blood pressure 150/70, respirations 18, pulse ox 94% on room air. HEENT: Conjunctivae normal. S1 and S2 muffled. LUNGS: Breath sounds diminished at the bases. Few scattered rhonchi and crackles. ABDOMEN: Soft, nontender. No masses palpable. EXTREMITIES: Legs no edema. NERVOUS SYSTEM: Higher functions as mentioned. Moves all limbs. LYMPHATICS: no lymph nodes palpable in the neck, axillae, groin. LABS: Hemoglobin 12.7, 7.3, cholesterol 220, LDL is 143. ASSESSMENT: 1. Shortness of breath, possibly multifactorial, possible chronic obstructive pulmonary disease exacerbation. 2. Chest pain, possible acute non-ST segment elevation myocardial infarction, troponin 0.076. 3. Hyperlipidemia. 4. Change in mental status. 5. Possible metabolic encephalopathy, multifactorial, possibly drug induced. 6. Anemia, normocytic. 7. Metastatic lesion of L5, status post radiation and chemo from metastatic follicular carcinoma of the thyroid. 8. History of asthma. 9. History of chronic obstructive pulmonary disease. 10. Hypertension essential. 11. History of coronary artery disease and stent. 12. Anxiety, depression, not otherwise specified. 13. Remote history of nicotine dependence. 14. FULL CODE. RECOMMENDATIONS AND DISCUSSION: In this 75-year-old gentleman who presented with multiple complex medical issues, we will monitor the patient closely, continue the current medications and continue symptomatic treatment. Otherwise, at this time I recommend to continue with the current medications and medical treatment. Follow with cardiology and pulmonology. Guarded prognosis because of multiple complex medical issues. Increase ambulation. Discussed with the patient. Further recommendations to follow. MTDD
[2016-06-29] MEDS: PREGABALIN 75 MG CAP PO SCH ×3 (04:09→08:48)
[2016-06-29] MEDS: LEVOTHYROXINE 100 MCG TAB PO SCH (06:37)
[2016-06-29] MEDS: LEVOTHYROXINE 75 MCG TAB PO SCH (06:37)
[2016-06-29 07:08] LABS: Basophils % (A) 0 %; CH 32.9; CHCM 34.5; Eosinophils # (A) 0.4 k/uL (0-0.7); Eosinophils % (A) 6 %; HCT 40.8 % (39.0-53.0); HDW 2.56; HGB 13.3 gm/dL (13.0-17.5); Luc # (Auto) 0.15; Luc % (Auto) 3; Lymphocytes # (A) 1.2 k/uL (1.0-4.8); Lymphocytes % (A) 19 %; MCH 31.3 pg (25.0-35.0); MCHC 32.7 g/dL (31.0-37.0); MCV 95.7 fL (80.0-100.0); Mean Platelet Volume 6.3; Monocytes # (A) 0.5 k/uL (0-1.0); Monocytes % (A) 9 %; Neutrophils # (A) 3.9 k/uL (1.3-7.7); Neutrophils % (A) 63 %; RBC 4.26 m/uL (4.30-5.90); RDW 12.9 % (11.5-15.5); WBC 6.1 k/uL (3.8-10.6); WBC (Perox) 6.35
[2016-06-29 07:25] LABS: Anion Gap 9 mmol/L; Blood Urea Nitrogen 19 mg/dL (9-20); Calcium 8.8 mg/dL (8.4-10.2); Carbon Dioxide 28 mmol/L (22-30); Chloride 104 mmol/L (98-107); Glucose 95 mg/dL (74-99); Non-African American GFR(MDRD) >60 (>60 ml/min/1.73 sqM); Potassium 3.5 mmol/L (3.5-5.1); Sodium 141 mmol/L (137-145)
[2016-06-29] MEDS: FINASTERIDE 5 MG TAB PO SCH (08:45)
[2016-06-29] MEDS: amLODIPine 10 MG TAB PO SCH (08:45)
[2016-06-29] MEDS: ASPIRIN 325 MG TAB PO SCH (08:45)
[2016-06-29] MEDS: METOPROLOL TARTRATE 50 MG TAB PO SCH (08:46)
[2016-06-29] MEDS: predniSONE 10 MG TAB PO SCH (08:46)
[2016-06-29] MEDS: MONTELUKAST 10 MG TAB PO SCH (08:47)
[2016-06-29] MEDS: prednisoLONE ACETATE 1% OPHTH DROPS 1 ML BTL MISCELLANE SCH (08:47)
[2016-06-29] MEDS: SODIUM CHLORIDE 0.65% NASAL SPRAY 44 ML BTL NASAL SCH (08:48)
[2016-06-29] MEDS: LEVALBUTEROL NEB 1.25 MG/3 ML AMP INHALATION SCH ×3 (08:48→16:02)
[2016-06-29] MEDS: SYMBICORT 160-4.5 MCG INHALER INHALATION SCH (08:49)
[2016-06-29] MEDS ORDERED: LISINOPRIL 20 MG TAB PO SCH (09:00)
--- NOTE | 2016-06-29 09:11 | P.PN ---
Subjective Principal diagnosis: Non-STEMI This is a 75-year-old gentleman with history of COPD, hypertension, hypothyroidism secondary to thyroidectomy from cancer, coronary artery disease with prior stent placement 2, hyperlipidemia, cancer of the spine, who presented to the hospital with symptoms of shortness of breath with associated chest tightness. He did rule in for non-Q-wave myocardial infarction. Maximal medical therapy advised. Patient's breathing appears to be stable, no further chest discomfort. The pressure this morning 180/80. PE ruled out by CAT scan. We will decrease his aspirin 81 mg daily, discontinue the IV heparin, patient is also on lisinopril 20 mg daily, metoprolol tartrate 50 mg one tablet by mouth twice a day, heart rate is in the 50s to 60s, pravastatin 20 mg daily, Norvasc 10 mg daily, we will consider the addition of Catapres if blood pressure remains elevated. Continue other medications. Objective - Vital Signs Vital signs: Vital Signs Temp 97 F L 06/29/16 04:00 Pulse 60 06/29/16 09:01 Resp 18 06/29/16 04:00 BP 180/83 06/29/16 04:00 Pulse Ox 93 L 06/29/16 04:00 Intake & Output 06/28/16 06/29/16 06/29/16 18:59 06:59 18:59 Intake Total 360 Output Total 750 200 Balance -390 -200 Weight 73 kg Intake: Oral 360 Output: Urine 750 200 Other: Voiding Method Toilet # Voids 2 # Bowel Movements 0 - Exam PHYSICAL EXAMINATION: HEENT: Head is atraumatic, normocephalic. Pupils equal, round. Neck is supple. There is no elevated jugular venous pressure. HEART EXAMINATION: Heart S1, S2 normal. No murmur or gallop heard. CHEST EXAMINATION: Lungs are clear with mild crackles to the posterior bases. ABDOMEN: Soft, nontender. Bowel sounds are heard. No organomegaly noted. EXTREMITIES: 2+ peripheral pulses with no evidence of peripheral edema and no calf tenderness noted. NEUROLOGIC patient is awake, alert and oriented -3. . - Labs CBC & Chem 7: 06/29/16 06:43 06/29/16 06:41 Labs: Abnormal Lab Results - Last 24 Hours (Table) 06/29/16 Range/Units 06:43 RBC 4.26 L (4.30-5.90) m/uL Assessment and Plan (1) Cancer of spinal cord Status: Acute (2) Hx of thyroid cancer Status: Acute (3) HTN (hypertension) Status: Acute (4) Hyperlipemia Status: Acute (5) COPD (chronic obstructive pulmonary disease) Status: Acute (6) CAD (coronary artery disease) Status: Acute (7) COPD (chronic obstructive pulmonary disease) Status: Acute (8) NSTEMI (non-ST elevated myocardial infarction) Status: Acute (9) Suicidal thoughts Status: Acute Plan: From cardiology's perspective, we will decrease the aspirin to 81 mg daily, discontinue IV heparin. Continue other current medications, if blood pressure remains elevated, consider the addition of Catapres. DNP note has been reviewed, I agree with a documented findings and plan of care. Patient was seen and examined.
[2016-06-29] MEDS ORDERED: cloNIDine HCL 0.1 MG TAB PO PRN (12:14)
[2016-06-29] MEDS ORDERED: cloNIDine HCL 0.1 MG TAB PO SCH (12:15)
[2016-06-29 13:25] VITALS: TEMP 97.8
[2016-06-29] MEDS ORDERED: POTASSIUM CHLORIDE ER 20 MEQ TAB.ER PO SCH (14:00)
[2016-06-29 15:15] VITALS: BP 163/79
--- NOTE | 2016-06-29 15:17 | DS ---
DATE OF ADMISSION: 06/26/2016 DATE OF DISCHARGE: FINAL DIAGNOSES: 1. Shortness of breath possible chronic obstructive pulmonary disease, acute exacerbation. 2. Chest pain, possible acute non- ST segment elevation myocardial infarction. 3. Troponin 0.07. 4. Hyperlipidemia. 5. Change in mental status, metabolic encephalopathy, multifactorial, possibly drug induced. 6. Anemia, normocytic. 7. Metastatic lesion L5-S1 status post radiation chemo for metastatic carcinoma of the thyroid. 8. History of asthma. 9. History of chronic obstructive pulmonary disease. 10. Hypertension essential. 11. History of coronary artery disease and stent. 12. Anxiety, depression. Not otherwise specified. 13. Remote history of nicotine dependence. 14. FULL CODE. DISCHARGE DISPOSITION: Patient will be discharged in a stable condition with guarded prognosis. Total time taken 35 minutes. HISTORY OF PRESENT ILLNESS: This 75-year-old gentleman with a past medical history of multiple medical problems was admitted with change in mental status, shortness of breath. The patient also had features of acute non- ST elevation myocardial infarction as evidenced by elevated troponin. Cardiology saw the patient. Medications adjusted. Medical treatment recommended. The patient was seen by psychiatry and overall the patient improved significantly. Hemoglobin 6. On exam, vital signs stable. CARDIOVASCULAR: S1, S2 muffled. RESPIRATORY: A few rhonchi. ABDOMEN: Soft. CENTRAL NERVOUS SYSTEM: No focal deficits. LABS: BMP within normal limits. Hemoglobin is 13.3. The patient will be discharged in a stable condition with guarded prognosis with the following advice and medications: 1. Diet is cardiac. 2. Activity limited until follow-up. 3. Follow up with Dr. Salazar in 2 to 3 days. 4. Follow [facility] with [facility] and home care as recommended. 5. Follow up with cardiology as recommended. 6. Saline nasal spray one spray daily. 7. Ventolin HFA 1 to 2 puffs q.6 p.r.n. 8. Aspirin 81 mg daily. 9. Symbicort 160/4.5, 2 puffs b.i.d. 10. Proscar 5 mg p.o. daily. 11. Synthroid 175 mcg p.o. daily. 12. Zestril 20 mg p.o. daily. 13. Lopressor 50 mg p.o. b.i.d. 14. Singulair 10 mg p.o. daily. 15. Nitrostat 0.4 sublingually p.r.n. 16. Pravachol 20 mg at bedtime. 17. Lyrica 150 mg p.o. b.i.d. 18. Norvasc 10 mg p.o. daily. 19. Discontinue fentanyl patch. 20. Oxycodone 1 tablet q.i.d. p.r.n. 21. Prednisone 10 mg p.o. daily. 22. pred forte 2 sprays each nostril. Once again, the patient will be discharged in a stable condition with guarded prognosis. ABIOLAD
--- NOTE | 2016-06-29 16:02 | P.PN ---
Subjective This is a 75-year-old gentleman with history of COPD, hypertension, hypothyroidism secondary to thyroidectomy from cancer, coronary artery disease with prior stent placement 2, hyperlipidemia, cancer of the spine, who presented to the hospital with symptoms of shortness of breath with associated chest tightness. He did rule in for non-Q-wave myocardial infarction. Maximal medical therapy advised. This morning, the patient is doing well. He has no specific complaints. He has no chest pain. His breathing is improved significantly. CT angios the chest was done and it ruled out the possibility of pulmonary embolism. The patient was taken off IV heparin. He is currently on baby aspirin, lisinopril, metoprolol and pravastatin and Norvasc. He also has some elevation in the blood pressure and Catapres may be added if the blood pressure continues to stay elevated. Cardiology is on the case. For the time being there is also plans to discharge this patient home on Symbicort as maintenance and a prednisone burst taper in addition to Ventolin HFA on a when necessary basis. He has a home nebulizer. Objective - Vital Signs Vital signs: Vital Signs Temp 97.8 F 06/29/16 14:45 Pulse 60 06/29/16 14:45 Resp 18 06/29/16 14:45 BP 163/79 06/29/16 14:45 Pulse Ox 96 06/29/16 14:45 Intake & Output 06/28/16 06/29/16 06/29/16 18:59 06:59 18:59 Intake Total 360 240 Output Total 750 200 200 Balance -390 -200 40 Weight 73 kg Intake: Oral 360 240 Output: Urine 750 200 200 Other: Voiding Method Toilet Toilet # Voids 2 # Bowel Movements 0 - Exam Head exam was generally normal. There was no scleral icterus or corneal arcus. Mucous membranes were moist.Neck was supple and without jugular venous distension, thyromegaly, or carotid bruits. Carotids were easily palpable bilaterally. There was no adenopathy. Lung sounds are diminished bilaterally otherwise clear.Cardiac exam revealed the PMI to be normally situated and sized. The rhythm was regular and no extrasystoles were noted during several minutes of auscultation. The first and second heart sounds were normal and physiologic splitting of the second heart sound was noted. There were no murmurs , rubs, clicks, or gallops.Abdominal exam revealed normal bowel sounds. The abdomen was soft, non-tender, and without masses, organomegaly, or appreciable enlargement of the abdominal aorta.Examination of the extremities revealed easily palpable radial, femoral and pedal pulses. There was no cyanosis, clubbing or edema. - Labs CBC & Chem 7: 06/29/16 06:43 06/29/16 06:41 Labs: Abnormal Lab Results - Last 24 Hours (Table) 06/29/16 Range/Units 06:43 RBC 4.26 L (4.30-5.90) m/uL Assessment and Plan Plan: Impression 1 COPD exacerbation, stable 2 coronary artery disease 3 non-ST segment elevation myocardial infarction, on medical treatment 4 thyroid cancer, metastatic with spinal cord/metastases 5 hypertension 6 hyperlipidemia 7 depression Plan the patient is stable and the patient is good for discharge to the pulmonary standpoint. His COPD is stable for now. He'll be released on prednisone 10 mg maintenance and Symbicort as maintenance. Follow-up with Dr. Adames in the office.
[2016-06-29 16:05] VITALS: PULSE 68
[2016-06-29] MEDS ORDERED: PRAVASTATIN SODIUM 20 MG TAB PO SCH (21:00)
[2016-06-30] MEDS ORDERED: ASPIRIN 81 MG CHEW PO SCH (09:00)
== END 2016-06-29 17:09 | disposition home or self-care (01) | DRG 280 ==
LOC: EC 17:40 → 6SEL 23:34
PROVIDERS: ADMIT Hospitalist; ATTEND Hospitalist
DX: I21.4 Non-ST elevation (NSTEMI) myocardial infarction (principal); G92 Toxic encephalopathy; C79.51 Secondary malignant neoplasm of bone; R45.851 Suicidal ideations; J44.1 Chronic obstructive pulmonary disease with (acute) exacerbation; I50.9 Heart failure, unspecified; D64.9 Anemia, unspecified; E78.5 Hyperlipidemia, unspecified; E89.0 Postprocedural hypothyroidism; F32.9 Major depressive disorder, single episode, unspecified; F41.9 Anxiety disorder, unspecified; I10 Essential (primary) hypertension; I25.10 Atherosclerotic heart disease of native coronary artery without angina pectoris; J45.909 Unspecified asthma, uncomplicated; M54.9 Dorsalgia, unspecified; R09.81 Nasal congestion; T40.4X5A Adverse effect of other synthetic narcotics, initial encounter; T50.995A Adverse effect of other drugs, medicaments and biological substances, initial encounter; Z79.82 Long term (current) use of aspirin; Z79.52 Long term (current) use of systemic steroids; Z79.899 Other long term (current) drug therapy; Z88.1 Allergy status to other antibiotic agents; Z85.820 Personal history of malignant melanoma of skin; Z85.850 Personal history of malignant neoplasm of thyroid; Z87.891 Personal history of nicotine dependence; Z95.5 Presence of coronary angioplasty implant and graft; Z92.3 Personal history of irradiation; Z92.21 Personal history of antineoplastic chemotherapy; Y92.009 Unspecified place in unspecified non-institutional (private) residence as the place of occurrence of the external cause
CPT/HCPCS: 36415; 71275; 80048; 80053; 80061; 80306; 81003; 82075; 82550; 82553; 83735; 84484; 85025; 85379; 85610; 85730; 93005; 94640; 94644; 96361; 96365; 96366; 96375; 96376; 99285

== ENCOUNTER 2016-09-15 04:25 | Inpatient (IN) | payer MEDICARE ==
[2016-09-15] MEDS ORDERED: SODIUM CHLORIDE 0.9% 1,000 ML IV STA (04:29)
[2016-09-15] MEDS ORDERED: ACETAMINOPHEN TAB 500 MG TAB PO STA (04:30)
--- NOTE | 2016-09-15 04:33 | ED ---
SOB HPI - General Stated Complaint: fever,cough Time Seen by Provider: 09/15/16 04:25 Source: patient, EMS, RN notes reviewed, old records reviewed Mode of arrival: EMS - History of Present Illness Initial Comments: This is a 76-year-old male with a history of frequent pneumonia and COPD who states she had the onset 2 days ago of feeling short of breath he's had a cough with brown and yellow phlegm fevers and chills but no sweats he's had progressively worsening shortness of breath. EMS was called tonight he was given 3 updrafts as well as 125 a slight Medrol. Is feeling somewhat better he felt very warm is unknown what his temperature was. He denies any overt chest pain. MD Complaint: shortness of breath, cough - Related Data Home Medications Medication Instructions Recorded Confirmed Albuterol Sulfate [Ventolin HFA] 1 - 2 puff INHALATION Q6H PRN 06/25/14 06/26/16 Aspirin 81 mg PO DAILY 06/25/14 06/27/16 Finasteride [Proscar] 5 mg PO DAILY 06/25/14 06/26/16 Levothyroxine Sodium [Synthroid] 175 mcg PO DAILY 06/25/14 06/26/16 amLODIPine [Norvasc] 10 mg PO DAILY 06/25/14 06/26/16 predniSONE 10 mg PO DAILY 06/25/14 06/26/16 Budesonide/Formoterol Fumarate 2 puff INHALATION RT-BID 06/26/16 06/26/16 [Symbicort 160-4.5 Mcg Inhaler] Montelukast [Singulair] 10 mg PO DAILY 06/26/16 06/26/16 Pregabalin [Lyrica] 150 mg PO BID 06/26/16 06/26/16 Saline Nasal [place] 1 spray EA NOSTRIL BID 06/26/16 06/26/16 oxyCODONE HCL/ACETAMINOPHEN 1 tab PO QID PRN 06/26/16 06/26/16 [Percocet 10-325 mg] prednisoLONE ACETATE [Pred Forte 2 sprays EA NOSTRIL BID 06/26/16 06/26/16 1%] Previous Rx's Medication Instructions Recorded Ipratropium-Albuterol Nebulize 3 ml INHALATION QID #120 neb 06/29/16 [Duoneb 0.5 mg-3 mg/3 ml Soln] Lisinopril [Zestril] 20 mg PO DAILY #30 tab 06/29/16 Metoprolol Tartrate [Lopressor] 50 mg PO BID #60 tab 06/29/16 Nitroglycerin Sl Tabs [Nitrostat] 0.4 mg SUBLINGUAL Q5M PRN #100 tab 06/29/16 Pravastatin Sodium [Pravachol] 20 mg PO HS #30 tab 06/29/16 cloNIDine HCL [Catapres] 0.1 mg PO BID #60 tab 06/29/16 Allergies Allergy/AdvReac Type Severity Reaction Status Date / Time cefuroxime axetil Allergy Rash/Hives Verified 06/26/16 19:50 [From Ceftin] Review of Systems ROS Statement: Those systems with pertinent positive or pertinent negative responses have been documented in the HPI. ROS Other: All systems not noted in ROS Statement are negative. 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 back pain. foot numbness History of Any Multi-Drug Resistant Organisms: None Reported Past Surgical History: Heart Catheterization With Stent Additional Past Surgical History / Comment(s): polyp surgery, thyroid surgery, stents x2, melanoma removed from face Past Anesthesia/Blood Transfusion Reactions: No Reported Reaction Date of Last Stent Placement:: 2005 Past Psychological History: Anxiety, Depression Smoking Status: Former smoker Past Alcohol Use History: Occasional Past Drug Use History: None Reported - Past Family History Father Family Medical History: Cancer Additional Family Medical History / Comment(s): colon ca General Exam - General Exam Comments Initial Comments: This is a well-developed well-nourished awake alert oriented history male he does demonstrate respiratory distress General appearance: alert, anxious, in distress Head exam: Present: atraumatic, normocephalic, normal inspection Eye exam: Present: normal appearance, PERRL, EOMI. Absent: scleral icterus, conjunctival injection, periorbital swelling ENT exam: Present: mucous membranes dry Neck exam: Present: normal inspection. Absent: tenderness, meningismus, lymphadenopathy Respiratory exam: Present: respiratory distress, wheezes, decreased breath sounds. Absent: rales, rhonchi, stridor Cardiovascular Exam: Present: normal rhythm, tachycardia, normal heart sounds. Absent: systolic murmur, diastolic murmur, rubs, gallop, clicks GI/Abdominal exam: Present: soft, normal bowel sounds. Absent: distended, tenderness, guarding, rebound, rigid Extremities exam: Present: normal inspection, full ROM, normal capillary refill. Absent: tenderness, pedal edema, joint swelling, calf tenderness Back exam: Present: normal inspection Neurological exam: Present: alert, oriented X3, CN II-XII intact Psychiatric exam: Present: normal affect, normal mood Skin exam: Present: warm, dry, intact, normal color. Absent: rash Course Vital Signs 09/15/16 09/15/16 09/15/16 04:30 05:20 06:29 Temperature 103.5 F H 98.9 F Pulse Rate 96 97 82 Respiratory 20 20 18 Rate Blood Pressure 219/89 177/97 117/67 O2 Sat by Pulse 98 92 L 95 Oximetry - Reevaluation(s) Reevaluation #1: 09/15/16 06:42 Reevaluation patient reveals he does feel much improved. Medical Decision Making - Medical Decision Making I did discuss findings with the patient family also with and Dr. Pastrana , patient will be admitted with cardiology consultation. He does demonstrate influenza COPD exacerbation elevated troponin. - Lab Data Result diagrams: 09/15/16 04:32 09/15/16 04:32 Lab Results 09/15/16 09/15/16 09/15/16 Range/Units 04:32 04:32 04:32 WBC 8.2 (3.8-10.6) k/uL RBC 3.89 L (4.30-5.90) m/uL Hgb 12.5 L (13.0-17.5) gm/dL Hct 38.2 L (39.0-53.0) % MCV 98.2 (80.0-100.0) fL MCH 32.2 (25.0-35.0) pg MCHC 32.8 (31.0-37.0) g/dL RDW 14.2 (11.5-15.5) % Plt Count 218 (150-450) k/uL Neutrophils % 71 % Lymphocytes % 17 % Monocytes % 5 % Eosinophils % 4 % Basophils % 1 % Neutrophils # 5.8 (1.3-7.7) k/uL Lymphocytes # 1.4 (1.0-4.8) k/uL Monocytes # 0.4 (0-1.0) k/uL Eosinophils # 0.4 (0-0.7) k/uL Basophils # 0.1 (0-0.2) k/uL PT (9.0-12.0) sec INR (<1.1) APTT (22.0-30.0) sec Sodium 142 (137-145) mmol/L Potassium 3.8 (3.5-5.1) mmol/L Chloride 102 (98-107) mmol/L Carbon Dioxide 28 (22-30) mmol/L Anion Gap 12 mmol/L BUN 23 H (9-20) mg/dL Creatinine 0.90 (0.66-1.25) mg/dL Est GFR (MDRD) Af Amer >60 (>60 ml/min/1.73 sqM) Est GFR (MDRD) Non-Af >60 (>60 ml/min/1.73 sqM) Glucose 94 (74-99) mg/dL Plasma Lactic Acid Sadi (0.7-2.0) mmol/L Calcium 8.0 L (8.4-10.2) mg/dL Magnesium 2.2 (1.6-2.3) mg/dL Total Bilirubin 0.5 (0.2-1.3) mg/dL AST 22 (17-59) U/L ALT 25 (21-72) U/L Alkaline Phosphatase 72 (38-126) U/L Total Creatine Kinase 123 (55-170) U/L CK-MB (CK-2) 0.9 (0.0-2.4) ng/mL CK-MB (CK-2) Rel Index 0.7 Troponin I 0.102 H* (0.000-0.034) ng/mL NT-Pro-B Natriuret Pep pg/mL Total Protein 6.8 (6.3-8.2) g/dL Albumin 4.2 (3.5-5.0) g/dL Influenza Type A RNA (Not Detectd) Influenza Type B (PCR) (Not Detectd) 04/09/15/16 09/15/16 Range/Units 04:32 04:32 04:32 WBC (3.8-10.6) k/uL RBC (4.30-5.90) m/uL Hgb (13.0-17.5) gm/dL Hct (39.0-53.0) % MCV (80.0-100.0) fL MCH (25.0-35.0) pg MCHC (31.0-37.0) g/dL RDW (11.5-15.5) % Plt Count (150-450) k/uL Neutrophils % % Lymphocytes % % Monocytes % % Eosinophils % % Basophils % % Neutrophils # (1.3-7.7) k/uL Lymphocytes # (1.0-4.8) k/uL Monocytes # (0-1.0) k/uL Eosinophils # (0-0.7) k/uL Basophils # (0-0.2) k/uL PT (9.0-12.0) sec INR (<1.1) APTT (22.0-30.0) sec Sodium (137-145) mmol/L Potassium (3.5-5.1) mmol/L Chloride (98-107) mmol/L Carbon Dioxide (22-30) mmol/L Anion Gap mmol/L BUN (9-20) mg/dL Creatinine (0.66-1.25) mg/dL Est GFR (MDRD) Af Amer (>60 ml/min/1.73 sqM) Est GFR (MDRD) Non-Af (>60 ml/min/1.73 sqM) Glucose (74-99) mg/dL Plasma Lactic Acid Sadi 1.8 (0.7-2.0) mmol/L Calcium (8.4-10.2) mg/dL Magnesium (1.6-2.3) mg/dL Total Bilirubin (0.2-1.3) mg/dL AST (17-59) U/L ALT (21-72) U/L Alkaline Phosphatase (38-126) U/L Total Creatine Kinase (55-170) U/L CK-MB (CK-2) (0.0-2.4) ng/mL CK-MB (CK-2) Rel Index Troponin I (0.000-0.034) ng/mL NT-Pro-B Natriuret Pep 1680 pg/mL Total Protein (6.3-8.2) g/dL Albumin (3.5-5.0) g/dL Influenza Type A RNA Detected H (Not Detectd) Influenza Type B (PCR) Not Detected (Not Detectd) 09/15/16 Range/Units 04:32 WBC (3.8-10.6) k/uL RBC (4.30-5.90) m/uL Hgb (13.0-17.5) gm/dL Hct (39.0-53.0) % MCV (80.0-100.0) fL MCH (25.0-35.0) pg MCHC (31.0-37.0) g/dL RDW (11.5-15.5) % Plt Count (150-450) k/uL Neutrophils % % Lymphocytes % % Monocytes % % Eosinophils % % Basophils % % Neutrophils # (1.3-7.7) k/uL Lymphocytes # (1.0-4.8) k/uL Monocytes # (0-1.0) k/uL Eosinophils # (0-0.7) k/uL Basophils # (0-0.2) k/uL PT 9.6 (9.0-12.0) sec INR 0.9 (<1.1) APTT 21.6 L (22.0-30.0) sec Sodium (137-145) mmol/L Potassium (3.5-5.1) mmol/L Chloride (98-107) mmol/L Carbon Dioxide (22-30) mmol/L Anion Gap mmol/L BUN (9-20) mg/dL Creatinine (0.66-1.25) mg/dL Est GFR (MDRD) Af Amer (>60 ml/min/1.73 sqM) Est GFR (MDRD) Non-Af (>60 ml/min/1.73 sqM) Glucose (74-99) mg/dL Plasma Lactic Acid Sadi (0.7-2.0) mmol/L Calcium (8.4-10.2) mg/dL Magnesium (1.6-2.3) mg/dL Total Bilirubin (0.2-1.3) mg/dL AST (17-59) U/L ALT (21-72) U/L Alkaline Phosphatase (38-126) U/L Total Creatine Kinase (55-170) U/L CK-MB (CK-2) (0.0-2.4) ng/mL CK-MB (CK-2) Rel Index Troponin I (0.000-0.034) ng/mL NT-Pro-B Natriuret Pep pg/mL Total Protein (6.3-8.2) g/dL Albumin (3.5-5.0) g/dL Influenza Type A RNA (Not Detectd) Influenza Type B (PCR) (Not Detectd) - EKG Data -: EKG Interpreted by [place] EKG shows normal: sinus rhythm (Sinus rhythm rate 92. Interval 144 QRS duration 110 QT/QTC of 366/452 and complete right bundle-branch block some LVH old inferior changes and anterior changes are more prominent than previous EKGs. ) - Radiology Data Radiology results: report reviewed, image reviewed (X-ray shows no definite acute findings.) Critical Care Time Critical Care Time: Yes Critical Care Time: 32 minutes of critical care time which includes initial presentation with history physical lab and x-rays and evaluation of the above evaluation response to therapy. Monitoring of the EMS run and discussed with paramedics. Admission orders and documentation the above Disposition Clinical Impression: NSTEMI (non-ST elevated myocardial infarction), Influenza, COPD exacerbation, Respiratory distress Disposition: ADMITTED IP TO THIS HOSP Condition: Stable
[2016-09-15 04:48] LABS: Basophils # (A) 0.1 k/uL (0-0.2); Basophils % (A) 1 %; CH 32.4; CHCM 33.2; Eosinophils # (A) 0.4 k/uL (0-0.7); Eosinophils % (A) 4 %; HCT 38.2 % (39.0-53.0); HDW 2.56; HGB 12.5 gm/dL (13.0-17.5); Luc # (Auto) 0.18; Luc % (Auto) 2; Lymphocytes # (A) 1.4 k/uL (1.0-4.8); Lymphocytes % (A) 17 %; MCH 32.2 pg (25.0-35.0); MCHC 32.8 g/dL (31.0-37.0); MCV 98.2 fL (80.0-100.0); Mean Platelet Volume 6.3; Monocytes # (A) 0.4 k/uL (0-1.0); Monocytes % (A) 5 %; Neutrophils # (A) 5.8 k/uL (1.3-7.7); Neutrophils % (A) 71 %; RBC 3.89 m/uL (4.30-5.90); RDW 14.2 % (11.5-15.5); WBC 8.2 k/uL (3.8-10.6); WBC (Perox) 8.31
[2016-09-15 05:00] LABS: ALT 25 U/L (21-72); AST 22 U/L (17-59); Alkaline Phosphatase 72 U/L (38-126); Anion Gap 12 mmol/L; Blood Urea Nitrogen 23 mg/dL (9-20); Carbon Dioxide 28 mmol/L (22-30); Chloride 102 mmol/L (98-107); Glucose 94 mg/dL (74-99); Magnesium 2.2 mg/dL (1.6-2.3); Non-African American GFR(MDRD) >60 (>60 ml/min/1.73 sqM); Potassium 3.8 mmol/L (3.5-5.1); Sodium 142 mmol/L (137-145); Total Bilirubin 0.5 mg/dL (0.2-1.3); Total Protein 6.8 g/dL (6.3-8.2)
[2016-09-15 05:12] LABS: INR 0.9 (<1.1); Prothrombin Time 9.6 sec (9.0-12.0)
[2016-09-15 05:31] LABS: Creatine Kinase MB 0.9 ng/mL (0.0-2.4)
[2016-09-15 05:35] LABS: Partial Thromboplastin Time 21.6 sec (22.0-30.0)
--- NOTE | 2016-09-15 05:35 | XR ---
EXAM: XR Chest, 2 Views. CLINICAL HISTORY: Reason: difficulty breathing TECHNIQUE: Frontal and lateral views of the chest. COMPARISON: CT chest 06/26/16. Chest x-ray 05/29/11 FINDINGS: There is accentuation of the cardiac and mediastinal silhouette by AP technique and rotation. Heart size appears mildly prominent though this may be related to technique. On lateral view appears upper limits normal. Mediastinal silhouette likely within normal limits allowing for technique. Questionable vascular congestion. No consolidation. No definite pleural effusion. IMPRESSION: Possible vascular congestion.
[2016-09-15 05:42] LABS: Troponin I 0.102 ng/mL (0.000-0.034)
[2016-09-15] MEDS ORDERED: NITROGLYCERIN SL TABS 0.4 MG TAB SUBLINGUAL PRN (06:47)
[2016-09-15] MEDS ORDERED: HEPARIN SODIUM,PORCINE 5,000 UNIT/ML 1 ML VIAL IV ONE (06:47)
[2016-09-15] MEDS ORDERED: oxyCODONE-APAP 10-325MG 1 EACH TAB PO PRN (06:51)
[2016-09-15] MEDS ORDERED: HEPARIN SODIUM,PORCINE/D5W PMX 25,000 UNIT in DEXTROSE/WATER 1 500ML.BAG IV SCH ×2 (07:00→15:15)
[2016-09-15] MEDS: SODIUM CHLORIDE 0.9% 1,000 ML IV SCH (08:00)
[2016-09-15] MEDS: METOPROLOL TARTRATE 50 MG TAB PO SCH ×2 (09:06→22:15)
[2016-09-15] MEDS: amLODIPine 10 MG TAB PO SCH (09:06)
[2016-09-15] MEDS: LEVOTHYROXINE 100 MCG TAB PO SCH (09:06)
[2016-09-15] MEDS: OSELTAMIVIR 75 MG CAP PO SCH ×2 (09:06→22:14)
[2016-09-15] MEDS: methylPREDNISolone SOD SUCCI 125 MG/2 ML VIAL IV SCH ×2 (09:06→17:51)
[2016-09-15] MEDS: LEVOTHYROXINE 75 MCG TAB PO SCH (09:07)
[2016-09-15] MEDS: cloNIDine HCL 0.1 MG TAB PO SCH ×2 (09:07→22:14)
[2016-09-15] MEDS: LISINOPRIL 20 MG TAB PO SCH (09:07)
[2016-09-15] MEDS: IPRATROPIUM-ALBUTEROL 3 ML NEB INHALATION SCH ×4 (09:16→21:13)
[2016-09-15] MEDS: PREGABALIN 75 MG CAP PO SCH ×2 (09:30→22:14)
[2016-09-15 11:54] LABS: Creatine Kinase MB 0.8 ng/mL (0.0-2.4)
[2016-09-15 12:04] LABS: Troponin I 0.098 ng/mL (0.000-0.034)
[2016-09-15] MEDS ORDERED: HEPARIN SODIUM,PORCINE 5,000 UNIT/ML 1 ML VIAL IV PRN (15:10)
[2016-09-15] MEDS: NITROGLYCERIN OINT 1 INCH/GM PACKET TOPICAL SCH ×2 (16:11→17:51)
[2016-09-15 17:20] LABS: Glucose,Whole Blood 274 mg/dL (75-99)
[2016-09-15] MEDS: INSULIN LISPRO (humaLOG) 300 UNIT/3 ML VIAL SQ SCH ×2 (17:35→22:16)
[2016-09-15 18:02] LABS: Creatine Kinase MB 1.2 ng/mL (0.0-2.4)
[2016-09-15 18:04] LABS: Troponin I 0.093 ng/mL (0.000-0.034)
--- NOTE | 2016-09-15 19:24 | HP ---
DATE OF ADMISSION: CHIEF COMPLAINT: Fever and cough. HISTORY OF PRESENT ILLNESS: Mr. Sam is a 76-year-old male with a known history of COPD, follicular cancer of thyroid, status post thyroidectomy several years ago in 2003, recent metastatic lesions to L5 spine, status post chemo and radiation in October 2015 at [facility], and multiple other medical problems. He came to the hospital with complaints of cough and fever as well as generalized weakness since last Wednesday. Patient has been having cough but not really productive, and patient has been having fever and being severely weak, which made him come to the hospital. Patient was found to have influenza A positive and also patient was having elevated troponin levels. Patient was started on IV heparin and is currently admitted to the hospital for further management. Cardiology has been consulted. A chest x-ray showed possible congestion. Patient does have history of coronary artery disease with stent placement x2 in the past. Patient used to smoke several years ago. REVIEW OF SYSTEMS: CONSTITUTIONAL: Patient does have fever and chills and generalized weakness. RESPIRATORY: Patient does have cough. No sputum production. Short of breath. CARDIOVASCULAR: No chest pain. Patient does have shortness of breath. No leg swelling. ABDOMEN: No nausea, vomiting or abdominal pain. GENITOURINARY: Negative. ENDOCRINE: Negative. PSYCHIATRY: Negative. SKIN: Negative. MUSCULOSKELETAL: Negative. All other fourteen-point review of systems negative except as above. Past medical history includes: 1. Asthma/COPD. 2. Hypertension. 3. Thyroid cancer. 4. Metastatic lesions to L5 spine, status post chemoradiation. 5. Chronic back pain. 6. Foot numbness. 7. Coronary artery disease, status post stent placement x2. PAST SURGICAL HISTORY: 1. Cardiac catheterization. 2. Polyp surgery. 3. Thyroid surgery x2. 4. Melanoma removed from face. PSYCHOSOCIAL HISTORY: Anxiety and depression. SOCIAL HISTORY: Patient is a former smoker. Occasional alcohol use. Denied any drugs or IVDU. FAMILY HISTORY: Father had colon cancer. Denied any history of hypertension. No premature heart disease in the family. ALLERGIES: CEFTIN. Home medications include: 1. Albuterol HFA. 2. Aspirin. 3. Proscar. 4. Levothyroxine. 5. Amlodipine. 6. Prednisone. 7. Symbicort. 8. Singulair. 9. Lyrica. 10. Saline nasal spray. 11. Percocet. 12. Prednisinolone. 13. DuoNeb. 14. Lisinopril. 15. Metoprolol. 16. Nitrostat. 17. Pravastatin. 18. Clonidine 0.1 mg p.o. b.i.d. PHYSICAL EXAMINATION: This is a 76-year-old male lying in the bed. Awake, alert, oriented x3. No apparent distress. VITALS: Blood pressure is 219/89, pulse 96, respiration 20, temperature 103.5, pulse ox 98% on room air. HEENT: Atraumatic, normocephalic. Neck is supple. No JVD. CVS EXAM: S1, S2 heard. No murmurs. No gallop. LUNGS: Bilateral air entry is present. Decreased air entry bilateral basally. Non-labored breathing. ABDOMEN: Soft, nontender. Bowel sounds present. TAPPER OPERATOR: Awake, alert, oriented x3. No focal neurologic deficits. EXTREMITIES: No edema. Pulses palpable bilaterally. No clubbing or cyanosis. PSYCHIATRIC: Cooperative. LABORATORY DATA: WBC 8.2, hemoglobin 12.5, platelets 218. INR 0.9. Sodium 142, potassium 3.8, chloride 102, bicarb 28. BUN 23, creatinine 0.9. Calcium 8.0. Lactic acid 1.8. Troponin 0.102 and 0.098. NT-ProBNP 1680. Albumin 4.2. Influenza A positive. Chest x-ray showed vascular congestion. IMPRESSION: 1. Acute influenza A infection. 2. Elevated troponins; possible ata-YP-nxthivgl myocardial infarction. 3. History of coronary artery disease, status post stent placement x2 in the past. 4. History of thyroid cancer, status post thyroid surgery in 2003, and recent recurrence, status post chemoradiation at [facility]. 5. Hypothyroidism. 6. Mild chronic obstructive pulmonary disease exacerbation. 7. Uncontrolled hypertension on admission/hypertensive urgency. 8. Depression and history of suicidal ideation in the past. 9. Metastatic to L5 spine and chronic back pain. 10. Remote history of smoking. DISCUSSION AND PLAN: Patient will be continued on breathing treatments and steroids as well as Tamiflu. Cardiology has been consulted. Continue with the heparin IV at this time. Follow up closely. Troponin levels are trending down at this time. No active complaints of chest pain. Will continue the telemetry monitoring and follow up closely. Further recommendations based on the clinical course. Patient denies any suicidal ideation now.
--- NOTE | 2016-09-15 20:15 | P.CRDCN ---
History of Present Illness Consult date: 09/15/16 History of present illness: This is a 76-year-old gentleman with history of previous ischemic heart disease , COPD and also thyroid for which he has a thyroidectomy, came to the hospital with complaints of body aches and fever associated with shortness of breath. Patient also had a metastatic lesion to the L5 spine and received chemo and radiation therapy in October 2015 at [facility]. Patient cough is nonproductive. Patient had severe wheezing. He was found to have influenza a positive and also had slightly elevated troponin values. Patient is admitted for further evaluation. The elevation of the troponin values may indicate underlying ischemic heart disease but not indicated to of acute coronary syndrome. He did not have any chest pain. However patient seemed to be in moderate respiratory distress with wheezing and shortness of breath. Once patient's respiratory status improved, patient could be discharged home to have further cardiac follow-up as an outpatient. I do not see any requirement for any invasive workup at this time. Review of Systems REVIEW OF SYSTEMS: CONSTITUTIONAL:. Patient is doing well. No complaints of fever or chills EYES: Denies diplopia, blurring of vision EARS, NOSE, MOUTH, THROAT: Denies headaches, denies sore throat. CARDIOVASCULAR: Denies chest pain, complains of shortness of breath RESPIRATORY: As per HPI GASTROINTESTINAL: Denies change in appetite, denies abdominal pain, denies diarrhea GENITOURINARY: Denies hematuria, denies infections. MUSKULOSKELETAL: Denies pain, denies swelling. Denies any cramps or claudication INTEGUMENTARY: Denies rash, denies eczema. NEUROLOGICAL: Denies focal weakness, or visual disturbance. Denies any dizziness or syncope PSYCHIATRIC: Denies anxiety, denies depression. HEMATOLOGIC/LYMPHATIC: Denies any bleeding, denies enlarged lymph nodes. 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 bilateral foot numbness, melanoma removed from face, anemia, bronchitis, sinus problems, frequent pneumonia, Last Myocardial Infarction Date:: 2004 History of Any Multi-Drug Resistant Organisms: None Reported Past Surgical History: Heart Catheterization With Stent Additional Past Surgical History / Comment(s): colonoscopy/benign polypectomy, thyroidectomy,stents x2, melanoma removed from face Past Anesthesia/Blood Transfusion Reactions: No Reported Reaction Date of Last Stent Placement:: 2003 Past Psychological History: Anxiety, Depression Additional Psychological History / Comment(s): Pt resides with his spouse. He states he has no thoughts/plans of suicide and does not wish himself . He is independent. Smoking Status: Former smoker Past Alcohol Use History: Occasional Additional Past Alcohol Use History / Comment(s): Pt started smoking in 1956 and quit in 1986. He used to drink more but not much drinking in the past 4-5 months. Past Drug Use History: None Reported - Past Family History Mother Family Medical History: No Reported History Additional Family Medical History / Comment(s): Mother was healthy and just shy of her 100th birthday. Father Family Medical History: Cancer Additional Family Medical History / Comment(s): Father of colon ca at the age of 85 yrs. Medications and Allergies Home Medications Medication Instructions Recorded Confirmed Type Aspirin 81 mg PO DAILY 06/25/14 09/15/16 History Finasteride [Proscar] 5 mg PO DAILY 06/25/14 09/15/16 History Levothyroxine Sodium [Synthroid] 175 mcg PO DAILY 06/25/14 09/15/16 History amLODIPine [Norvasc] 10 mg PO DAILY 06/25/14 09/15/16 History predniSONE 10 mg PO DAILY 06/25/14 09/15/16 History Budesonide/Formoterol Fumarate 2 puff INHALATION RT-BID 06/26/16 09/15/16 History [Symbicort 160-4.5 Mcg Inhaler] Montelukast [Singulair] 10 mg PO DAILY 06/26/16 09/15/16 History Saline Nasal [place] 1 spray EA NOSTRIL BID 06/26/16 09/15/16 History Gabapentin [Neurontin] 100 mg PO TID 09/15/16 09/15/16 History Lisinopril [Zestril] 10 mg PO DAILY 09/15/16 09/15/16 History oxyCODONE-APAP 5-325MG [Percocet 1 tab PO TID PRN 09/15/16 09/15/16 History 5-325 mg] Allergies Allergy/AdvReac Type Severity Reaction Status Date / Time cefuroxime axetil Allergy Rash/Hives Verified 09/15/16 07:15 [From Ceftin] Physical Exam Vitals: Vital Signs Temp Pulse Pulse Resp BP BP Pulse Ox 09/15/16 18:01 64 20 118/76 93 L 09/15/16 16:49 88 09/15/16 16:40 72 09/15/16 16:00 96.7 F L 6 L 20 106/65 93 L 09/15/16 15:04 97.5 F L 111/57 09/15/16 15:00 69 18 99/52 94 L 09/15/16 09:26 95 09/15/16 09:18 74 09/15/16 09:13 77 18 139/71 94 L 09/15/16 08:01 97.6 F 77 18 140/69 93 L Intake and Output 09/15/16 09/15/16 09/15/16 06:59 14:59 22:59 Intake Total 159.276 Balance 159.276 Intake: Intake, IV Titration 159.276 Amount Heparin Sodium,Porcine/ 159.276 D5w Pmx 25,000 unit In Dextrose/Water 1 500ml. bag @ 12 UNITS/KG/HR 19. 59 mls/hr IV .Q24H [facility] Rx #:[id number] Other: Voiding Method Urinal GENERAL EXAM: Patient is alert and oriented and and appears in [id number] distress HEENT: Normocephalic. Normal reaction of pupils, equal size, normal range of extraocular motion. No erythema or exudates in the throat. NECK: No masses, no nuchal rigidity. CHEST: No chest wall deformity. LUNGS: Expiratory wheezing and rhonchi HEART: S1 and S2 normal with no audible mumurs or gallops. Regular rhythm, femorals equal on both sides.. ABDOMEN: No hepatosplenomegaly, normal bowel sounds, no guarding or rigidity. SKIN: No rashes CENTRAL NERVOUS SYSTEM: No focal deficits. EXTREMITIES: No cyanosis, clubbing or edema. Results 09/15/16 04:32 09/15/16 04:32 Cardiac Enzymes 09/15/16 09/15/16 Range/Units 10:34 16:42 CK-MB (CK-2) 0.8 1.2 (0.0-2.4) ng/mL Troponin I 0.098 H* 0.093 H* (0.000-0.034) ng/mL Coagulation 09/15/16 Range/Units 13:00 APTT 36.3 H (22.0-30.0) sec Current Medications Generic Name Dose Route Start Last Admin Trade Name Freq PRN Reason Stop Dose Admin Albuterol/Ipratropium 3 ml 09/15/16 08:00 09/15/16 16:39 Duoneb 0.5 Mg-3 Mg/3 Ml Soln INHALATION 3 ml RT-Q4H JOE Administration Amlodipine Besylate 10 mg 09/15/16 09:00 09/15/16 09:06 Norvasc PO 10 mg DAILY JOE Administration Aspirin 325 mg 09/16/16 09:00 Aspirin PO DAILY JOE Clonidine 0.1 mg 09/15/16 09:00 09/15/16 09:07 Catapres PO 0.1 mg BID JOE Administration Heparin Sodium (Porcine) 0 unit 09/15/16 15:10 09/15/16 15:15 Heparin IV 4,000 unit PER PROTOCOL PRN Administration Low PTT Protocol Sodium Chloride 1,000 mls @ 20 mls/hr 09/15/16 07:00 09/15/16 08:00 Saline 0.9% IV 20 mls/hr .Q24H JOE Administration Heparin Sodium/Dextrose 25,000 500 mls @ 19.59 mls/hr 09/15/16 15:15 16:13 unit/ IV Solution IV 15 units/kg/hr .Q24H JOE 24.5 mls/hr Protocol Administration 12 UNITS/KG/HR Insulin Human Lispro 0 unit 09/15/16 17:30 09/15/16 17:35 Humalog SQ 8 unit ACHS JOE Administration Protocol Levothyroxine Sodium 100 mcg 09/15/16 09:00 09/15/16 09:06 Synthroid PO 100 mcg DAILY@0630 JOE Administration Levothyroxine Sodium 75 mcg 09/15/16 09:00 09/15/16 09:07 Synthroid PO 75 mcg DAILY@0630 JOE Administration Lisinopril 20 mg 09/15/16 09:00 09/15/16 09:07 Zestril PO 20 mg DAILY JOE Administration Methylprednisolone Sodium Succinate 60 mg 09/15/16 12:00 09/15/16 17:51 Solu-Medrol IV 60 mg Q6HR JOE Administration Metoprolol Tartrate 50 mg 09/15/16 09:00 09/15/16 09:06 Lopressor PO 50 mg BID JOE Administration Nitroglycerin 1 inch 09/15/16 12:00 09/15/16 17:51 Nitro-Bid Oint TOPICAL 1 inch Q6HR JOE Administration Nitroglycerin 0.4 mg 09/15/16 06:47 Nitrostat SUBLINGUAL Q5M PRN Chest Pain Oseltamivir Phosphate 75 mg 09/15/16 09:00 09/15/16 09:06 Tamiflu PO 09/19/16 21:01 75 mg Q12HR JOE Administration Oxycodone/Acetaminophen 1 each 09/15/16 06:51 Percocet 10-325 PO QID PRN Pain Pravastatin Sodium 20 mg 09/15/16 21:00 Pravachol PO HS JOE Pregabalin 150 mg 09/15/16 09:00 09/15/16 09:30 Lyrica PO 150 mg BID JOE Administration Intake and Output 09/15/16 09/15/16 09/15/16 06:59 14:59 22:59 Intake Total 159.276 Balance 159.276 Intake: Intake, IV Titration 159.276 Amount Heparin Sodium,Porcine/ 159.276 D5w Pmx 25,000 unit In Dextrose/Water 1 500ml. bag @ 12 UNITS/KG/HR 19. 59 mls/hr IV .Q24H [facility] Rx #:[id number] Other: Voiding Method Urinal EKG Interpretations (text) EKG showed a sinus rhythm with incomplete right bundle branch block pattern. LVH with repolarization changes and evidence of possible old inferior wall NM Assessment and Plan (1) COPD exacerbation Status: Acute (2) Influenza Status: Acute (3) CAD (coronary artery disease) Status: Acute (4) Cancer of spinal cord Status: Acute Plan: Patient's clinical picture is consistent with exacerbation of COPD and possible influenza A. His troponin elevation is nonspecific and probably represent demand supply mismatch. I do not think at the present acute coronary syndrome. Once patient's respiratory status improves, patient could be discharged home. Further cardiac workup as an outpatient.
[2016-09-15 20:24] LABS: Hemoglobin A1C 6.1 % (4.2-6.1)
[2016-09-15 21:00] LABS: Glucose,Whole Blood 138 mg/dL (75-99)
[2016-09-15] MEDS ORDERED: IPRATROPIUM-ALBUTEROL 3 ML NEB INHALATION PRN (21:17)
[2016-09-15] MEDS: PRAVASTATIN SODIUM 20 MG TAB PO SCH (22:15)
[2016-09-16] MEDS: methylPREDNISolone SOD SUCCI 125 MG/2 ML VIAL IV SCH ×3 (00:41→12:42)
[2016-09-16] MEDS: NITROGLYCERIN OINT 1 INCH/GM PACKET TOPICAL SCH ×3 (00:41→12:41)
[2016-09-16 05:40] LABS: Glucose,Whole Blood 197 mg/dL (75-99)
[2016-09-16] MEDS: SODIUM CHLORIDE 0.9% 1,000 ML IV SCH (06:52)
[2016-09-16] MEDS: LEVOTHYROXINE 75 MCG TAB PO SCH (06:52)
[2016-09-16] MEDS: LEVOTHYROXINE 100 MCG TAB PO SCH (06:52)
[2016-09-16 07:21] LABS: Cholesterol 190 mg/dL (<200); HDL Cholesterol 67 mg/dL (40-60); Triglycerides 62 mg/dL (<150)
[2016-09-16] MEDS: INSULIN LISPRO (humaLOG) 300 UNIT/3 ML VIAL SQ SCH ×4 (07:43→22:54)
[2016-09-16] MEDS: IPRATROPIUM-ALBUTEROL 3 ML NEB INHALATION SCH ×4 (07:51→20:36)
[2016-09-16] MEDS: cloNIDine HCL 0.1 MG TAB PO SCH ×2 (08:44→22:54)
[2016-09-16] MEDS: ASPIRIN 325 MG TAB PO SCH (08:44)
[2016-09-16] MEDS: METOPROLOL TARTRATE 50 MG TAB PO SCH ×2 (08:45→22:53)
[2016-09-16] MEDS: OSELTAMIVIR 75 MG CAP PO SCH ×2 (08:45→22:53)
[2016-09-16] MEDS: PREGABALIN 75 MG CAP PO SCH ×2 (08:48→22:57)
[2016-09-16 12:12] LABS: Glucose,Whole Blood 204 mg/dL (75-99)
[2016-09-16] MEDS: amLODIPine 10 MG TAB PO SCH (12:40)
--- NOTE | 2016-09-16 15:11 | P.PN ---
Subjective Principal diagnosis: influenza this is a 76-year-old gentleman with history of ischemic heart disease, COPD, hypothyroidism, prior thyroidectomy, history of metastatic lesion to L5 spine for which she received chemo and radiation at [facility]. Patient is influenza A positive. He was noted to have some mild troponin elevation, which may indicate underlying ischemic heart disease, not suggestive of acute coronary syndrome. Patient did have an episode of chest discomfort this morning after eating, relieved with one sublingual nitroglycerin.echo pending.at the time of our examination patient is currently chest pain-free. Objective - Vital Signs Vital signs: Vital Signs Temp 96.8 F L 09/16/16 11:40 Pulse 60 09/16/16 12:03 Resp 20 09/16/16 11:40 BP 99/59 09/16/16 12:03 Pulse Ox 93 L 09/16/16 11:40 Intake & Output 09/15/16 09/16/16 09/16/16 18:59 06:59 18:59 Intake Total 159.276 356 796 Output Total 650 Balance 159.276 356 146 Weight 81.5 kg Intake: IV 160 320 Sodium Chloride 0.9% 1, 160 320 000 ml @ 20 mls/hr IV . Q24H [facility] Rx#:[id number] Intake, IV Titration 159.276 196 196 Amount Heparin Sodium,Porcine/ 159.276 D5w Pmx 25,000 unit In Dextrose/Water 1 500ml. bag @ 12 UNITS/KG/HR 19. 59 mls/hr IV .Q24H [facility] Rx #:[id number] Heparin Sodium,Porcine/ 196 196 D5w Pmx 25,000 unit In Dextrose/Water 1 500ml. bag @ 12 UNITS/KG/HR 19. 59 mls/hr IV .Q24H [facility] Rx #:[id number] Oral 280 Output: Urine 650 Other: Voiding Method Urinal Urinal Urinal - Exam PHYSICAL EXAMINATION: HEENT: [Head is atraumatic, normocephalic. Pupils equal, round. Neck is supple. There is no elevated jugular venous pressure.] HEART EXAMINATION: [Heart S1, S2 normal. No murmur or gallop heard.] CHEST EXAMINATION:[ Lungs are clear to auscultation and precussion. No chest wall tenderness is noted on palpation or with deep breathing.] ABDOMEN: [ Soft, nontender. Bowel sounds are heard. No organomegaly noted]. EXTREMITIES:[ 2+ peripheral pulses with no evidence of peripheral edema and no calf tenderness noted]. NEUROLOGIC [patient is awake, alert and oriented -3.] . - Labs CBC & Chem 7: 09/15/16 04:32 09/15/16 04:32 Labs: Abnormal Lab Results - Last 24 Hours (Table) 09/15/16 09/15/16 09/15/16 Range/Units 16:42 17:07 20:57 APTT 51.5 H (22.0-30.0) sec POC Glucose (mg/dL) 274 H (75-99) mg/dL Troponin I 0.093 H* (0.000-0.034) ng/mL LDL Cholesterol, Calc (0-99) mg/dL HDL Cholesterol (40-60) mg/dL 09/15/16 09/16/16 09/16/16 Range/Units 20:57 05:37 06:17 APTT (22.0-30.0) sec POC Glucose (mg/dL) 138 H 197 H (75-99) mg/dL Troponin I (0.000-0.034) ng/mL LDL Cholesterol, Calc 111 H (0-99) mg/dL HDL Cholesterol 67 H (40-60) mg/dL 09/16/16 09/16/16 Range/Units 06:17 11:41 APTT 56.0 H (22.0-30.0) sec POC Glucose (mg/dL) 204 H (75-99) mg/dL Troponin I (0.000-0.034) ng/mL LDL Cholesterol, Calc (0-99) mg/dL HDL Cholesterol (40-60) mg/dL Assessment and Plan (1) Elevated troponin Status: Acute (2) COPD exacerbation Status: Acute (3) Influenza Status: Acute (4) CAD (coronary artery disease) Status: Acute (5) Cancer of spinal cord Status: Acute (6) HTN (hypertension) Status: Acute (7) Hx of thyroid cancer Status: Acute (8) Hyperlipemia Status: Acute Plan: from cardiology's perspective, we will discontinue Nitropaste and start the patient on Imdur 30 mg daily. DNP note has been reviewed, I agree with a documented findings and plan of care. Patient was seen and examined.
[2016-09-16] MEDS: ISOSORBIDE MONONITRATE ER 30 MG TAB.ER.24H PO SCH (16:42)
[2016-09-16] MEDS: predniSONE 20 MG TAB PO SCH (16:42)
--- NOTE | 2016-09-16 16:43 | P.CNPUL ---
History of Present Illness Consult date: 09/16/16 Requesting physician: Shanelle Mayberry Reason for consult: dyspnea Chief complaint: Fever, chills, weakness History of present illness: This is a very pleasant 76-year-old gentleman who follows with Dr. Salazar as his primary care physician. He has a history of chronic obstructive pulmonary disease, maintained on Symbicort and albuterol, hypertension, hypothyroidism secondary to thyroidectomy from cancer, coronary artery disease with previous stent placement 2, melanoma removed from his face. Has has a history of metastatic mass of L5 in his spine. He has been seen in the [facility] and undergone radiation there. He was recently at the [facility] and was receiving some IV infusion last week, unclear of the medication at that time. Yesterday the patient developed significant chills and actually went to bed with his clothes on the night before. He developed significant weakness and some shortness of breath. No worsening cough or congestion. No productive sputum. No urinary symptoms. No leukocytosis. His temperature on arrival to the emergency room was 103.5. He was found to be influenza A positive. He did have mild troponin leak at 0.093. His chest x-ray did not reveal any acute pulmonary process. There is mild vascular congestion. Blood culture reveals no growth to date. The patient is seen today in consultation on the selective care unit. He is awake and alert in no acute distress. He is feeling stronger today as compared to yesterday. No worsening shortness of breath, cough or congestion. No chest pain, palpitations lightheadedness or dizziness. He has been afebrile for 24 hours. He was initiated on Tamiflu. Review of Systems 14 point review of system was conducted all negative other than as mentioned in HPI. 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 bilateral foot numbness, melanoma removed from face, anemia, bronchitis, sinus problems, frequent pneumonia, Last Myocardial Infarction Date:: 2003 History of Any Multi-Drug Resistant Organisms: None Reported Past Surgical History: Heart Catheterization With Stent Additional Past Surgical History / Comment(s): colonoscopy/benign polypectomy, thyroidectomy,stents x2, melanoma removed from face Past Anesthesia/Blood Transfusion Reactions: No Reported Reaction Date of Last Stent Placement:: 2003 Past Psychological History: Anxiety, Depression Additional Psychological History / Comment(s): Pt resides with his spouse. He states he has no thoughts/plans of suicide and does not wish himself . He is independent. Smoking Status: Former smoker Past Alcohol Use History: Occasional Additional Past Alcohol Use History / Comment(s): Pt started smoking in 1956 and quit in 1986. He used to drink more but not much drinking in the past 4-5 months. Past Drug Use History: None Reported - Past Family History Mother Family Medical History: No Reported History Additional Family Medical History / Comment(s): Mother was healthy and just shy of her 100th birthday. Father Family Medical History: Cancer Additional Family Medical History / Comment(s): Father of colon ca at the age of 85 yrs. Medications and Allergies Home Medications Medication Instructions Recorded Confirmed Type Aspirin 81 mg PO DAILY 06/25/14 09/15/16 History Finasteride [Proscar] 5 mg PO DAILY 06/25/14 09/15/16 History Levothyroxine Sodium [Synthroid] 175 mcg PO DAILY 06/25/14 09/15/16 History amLODIPine [Norvasc] 10 mg PO DAILY 06/25/14 09/15/16 History Budesonide/Formoterol Fumarate 2 puff INHALATION RT-BID 06/26/16 09/15/16 History [Symbicort 160-4.5 Mcg Inhaler] Montelukast [Singulair] 10 mg PO DAILY 06/26/16 09/15/16 History Saline Nasal [place] 1 spray EA NOSTRIL BID 06/26/16 09/15/16 History Gabapentin [Neurontin] 100 mg PO TID 09/15/16 09/15/16 History Lisinopril [Zestril] 10 mg PO DAILY 09/15/16 09/15/16 History oxyCODONE-APAP 5-325MG [Percocet 1 tab PO TID PRN 09/15/16 09/15/16 History 5-325 mg] Allergies Allergy/AdvReac Type Severity Reaction Status Date / Time cefuroxime axetil Allergy Rash/Hives Verified 09/15/16 07:15 [From Ceftin] Physical Exam Vitals: Vital Signs Temp Pulse Pulse Pulse Resp BP Pulse Ox 09/16/16 15:12 97 F L 67 24 114/61 92 L 09/16/16 12:03 60 99/59 09/16/16 11:50 72 09/16/16 11:47 58 L 117/70 09/16/16 11:40 96.8 F L 76 61 20 116/75 93 L 09/16/16 08:40 97 F L 76 20 115/68 93 L 09/16/16 08:10 76 09/16/16 07:56 72 09/16/16 07:55 93 L 09/16/16 04:00 69 18 132/70 93 L 09/16/16 00:00 97.1 F L 66 18 99/53 92 L 09/15/16 21:30 88 09/15/16 21:16 88 09/15/16 20:00 98.5 F 77 18 106/59 92 L 09/15/16 18:01 64 20 118/76 93 L 09/15/16 16:49 88 09/15/16 16:40 72 Intake and Output 09/16/16 09/16/16 09/16/16 06:59 14:59 22:59 Intake Total 356 796 Output Total 1050 Balance 356 -254 Intake: IV 160 320 Sodium Chloride 0.9% 1, 160 320 000 ml @ 20 mls/hr IV . Q24H [facility] Rx#:[id number] Intake, IV Titration 196 196 Amount Heparin Sodium,Porcine/ 196 196 D5w Pmx 25,000 unit In Dextrose/Water 1 500ml. bag @ 12 UNITS/KG/HR 19. 59 mls/hr IV .Q24H [facility] Rx #:[id number] Oral 280 Output: Urine 1050 Other: Voiding Method Urinal Urinal Weight 81.5 kg GENERAL EXAM: Alert, fairly comfortable in no apparent distress. HEAD: Normocephalic. EYES: Normal reaction of pupils, equal size. NOSE: Clear with pink turbinates. THROAT: No erythema or exudates. NECK: No masses, no JVD. CHEST: No chest wall deformity. LUNGS: Equal air entry with no crackles, wheeze, rhonchi or dullness. Diminished. CVS: S1 and S2 normal with no audible murmurs, regular rhythm. ABDOMEN: No hepatosplenomegaly, normal bowel sounds, no guarding or rigidity. SKIN: No rashes CENTRAL NERVOUS SYSTEM: No focal deficits, tone is normal in all 4 extremities. Extremities: There is no significant peripheral edema. No clubbing, no cyanosis. Peripheral pulses are intact. Results - Laboratory Findings CBC and BMP: 09/15/16 04:32 09/15/16 04:32 PT/INR, D-dimer PT 9.6 sec (9.0-12.0) 09/15/16 04:32 INR 0.9 (<1.1) 09/15/16 04:32 Abnormal lab findings: Abnormal Labs 09/15/16 09/15/16 09/15/16 10:34 13:00 16:42 APTT 36.3 H POC Glucose (mg/dL) Troponin I 0.098 H* 0.093 H* LDL Cholesterol, Calc HDL Cholesterol 09/15/16 09/15/16 09/15/16 17:07 20:57 20:57 APTT 51.5 H POC Glucose (mg/dL) 274 H 138 H Troponin I LDL Cholesterol, Calc HDL Cholesterol 09/16/16 09/16/16 09/16/16 05:37 06:17 06:17 APTT 56.0 H POC Glucose (mg/dL) 197 H Troponin I LDL Cholesterol, Calc 111 H HDL Cholesterol 67 H 09/16/16 11:41 APTT POC Glucose (mg/dL) 204 H Troponin I LDL Cholesterol, Calc HDL Cholesterol - Diagnostic Findings Chest x-ray: image reviewed Assessment and Plan Plan: Impression: #1 Febrile illness secondary to influenza A. Treated with Tamiflu. #2 History of metastatic spine lesions at L5 status post radiation at [facility] and recent treatment at the [facility] area #3 Hypothyroidism secondary to thyroid cancer status post thyroidectomy. #4 History of melanoma removed from his face. #5 Chronic obstructive pulmonary disease, currently inactive and stable. #6 Coronary artery disease with previous stent placement. #7 Hypertension. Plan: The patient was seen and evaluated by Dr. Travis. His chest x-ray and labs were reviewed. The patient is being treated for influenza A with Tamiflu. He is cleared for discharge from the pulmonary standpoint. Complete his course of Tamiflu. He'll continue with his usual pulmonary medications. He'll follow-up with Dr. Salazar in our office in 1 week. Time with Patient: Greater than 30
[2016-09-16 17:14] LABS: Glucose,Whole Blood 190 mg/dL (75-99)
[2016-09-16] MEDS: LISINOPRIL 20 MG TAB PO SCH (17:34)
[2016-09-16 21:01] LABS: Glucose,Whole Blood 197 mg/dL (75-99)
[2016-09-16 22:11] VITALS: RESP 18
[2016-09-16] MEDS: PRAVASTATIN SODIUM 20 MG TAB PO SCH (22:53)
[2016-09-17 05:41] LABS: Basophils % (A) 0 %; CH 32.6; CHCM 33.4; Eosinophils % (A) 0 %; HCT 31.9 % (39.0-53.0); HDW 2.59; HGB 10.2 gm/dL (13.0-17.5); Luc # (Auto) 0.07; Luc % (Auto) 1; Lymphocytes # (A) 0.4 k/uL (1.0-4.8); Lymphocytes % (A) 3 %; MCH 31.5 pg (25.0-35.0); MCV 98.2 fL (80.0-100.0); Monocytes # (A) 0.5 k/uL (0-1.0); Monocytes % (A) 3 %; Neutrophils # (A) 13.6 k/uL (1.3-7.7); Neutrophils % (A) 94 %; RBC 3.24 m/uL (4.30-5.90); RDW 14.2 % (11.5-15.5); WBC 14.5 k/uL (3.8-10.6); WBC (Perox) 15.62
[2016-09-17 06:14] LABS: Anion Gap 7 mmol/L; Blood Urea Nitrogen 49 mg/dL (9-20); Calcium 7.3 mg/dL (8.4-10.2); Carbon Dioxide 25 mmol/L (22-30); Chloride 105 mmol/L (98-107); Glucose 134 mg/dL (74-99); Non-African American GFR(MDRD) >60 (>60 ml/min/1.73 sqM); Potassium 4.4 mmol/L (3.5-5.1); Sodium 137 mmol/L (137-145)
[2016-09-17 06:19] LABS: Glucose,Whole Blood 134 mg/dL (75-99)
[2016-09-17] MEDS: INSULIN LISPRO (humaLOG) 300 UNIT/3 ML VIAL SQ SCH ×2 (06:35→11:56)
[2016-09-17] MEDS: LEVOTHYROXINE 100 MCG TAB PO SCH (06:35)
[2016-09-17] MEDS: LEVOTHYROXINE 75 MCG TAB PO SCH (06:35)
[2016-09-17] MEDS: SODIUM CHLORIDE 0.9% 1,000 ML IV SCH (06:35)
[2016-09-17] MEDS: IPRATROPIUM-ALBUTEROL 3 ML NEB INHALATION SCH ×3 (08:06→17:18)
[2016-09-17] MEDS: LISINOPRIL 20 MG TAB PO SCH (08:50)
[2016-09-17] MEDS: ASPIRIN 325 MG TAB PO SCH (08:50)
[2016-09-17] MEDS: OSELTAMIVIR 75 MG CAP PO SCH (08:51)
[2016-09-17] MEDS: amLODIPine 10 MG TAB PO SCH (08:51)
[2016-09-17] MEDS: predniSONE 20 MG TAB PO SCH (08:51)
[2016-09-17] MEDS: METOPROLOL TARTRATE 50 MG TAB PO SCH (08:51)
[2016-09-17] MEDS: ISOSORBIDE MONONITRATE ER 30 MG TAB.ER.24H PO SCH (08:51)
[2016-09-17] MEDS: cloNIDine HCL 0.1 MG TAB PO SCH (08:51)
[2016-09-17] MEDS: PREGABALIN 75 MG CAP PO SCH (08:57)
--- NOTE | 2016-09-17 08:58 | PN ---
DATE OF SERVICE: 09/16/2016 INTERVAL HISTORY: Mr. Sam is a 76-year-old male with known history of multiple medical problems including metastatic lesions to L5 and coronary artery disease with stent placement admitted to the hospital with fever and chills and generalized weakness and is found to have influenza A infection, currently being treated with Tamiflu. Otherwise, patient was found to have elevated troponin and unlikely from acute coronary syndrome, possible demand mismatch. Cardiology and Pulmonary are following this patient. Otherwise patient is symptomatically much improved today. Denied any complaints of chest pain or short of breath. IV heparin has been discontinued. No acute overnight issues. Patient is able to ambulate to the bathroom and weakness is improving now. Anticipate discharge in the next 24 hours. REVIEW OF SYSTEMS: CONSTITUTIONAL: No fever. No chills. RESPIRATORY: No cough or sputum production. CARDIOVASCULAR: Patient denied any chest pain or short of breath. No leg swelling. No palpitations. GENITOURINARY: Negative. ENDOCRINE: Negative. NEUROLOGIC: Negative. All other 14 point review of systems negative except as above. Current medications include DuoNeb, Norvasc, aspirin, Catapres, Humalog, Imdur, levothyroxine, Synthroid, Zestril, Lopressor, Nitrostat, Tamiflu, Percocet, Pravachol, prednisone, pregabalin. PHYSICAL EXAMINATION: A 76-year-old male lying in bed comfortably, awake, alert, oriented x3. He appears to be in no apparent distress. VITALS: Blood pressure is 130/77, pulse is 68, respirations 18, temperature afebrile, pulse ox 94% on room air. HEENT: Atraumatic, normocephalic. Neck is supple. No JVD. CVS: S1, S2 heard. No murmurs, no gallop. LUNGS: Bilateral air entry is present. Minimal expiratory wheezing. Nonlabored breathing. ABDOMEN: Soft, nontender. Bowel sounds present. TWIST TESTER: Awake, alert, oriented x3. No focal deficit. EXTREMITIES: No edema. Pulses palpable bilaterally. No clubbing or cyanosis. PSYCHIATRIC: Cooperative, nonsuicidal. Laboratory data reviewed. IMPRESSION: 1. Fever with generalized weakness secondary to influenza A infection. Continue the Tamiflu. 2. Mild chronic obstructive pulmonary disease exacerbation, improved wheezing now. Methylprednisone changed to p.o. prednisone. 3. Elevated troponins likely due to demand mismatch, possible non-ST elevated myocardial infarction. 4. History of coronary artery disease, status post stent x2. 5. History of thyroid cancer, status post thyroid surgery in 2003 and recent recurrence, status post chemoradiation at [facility]. 6. Hypothyroidism. 7. Metastatic L5 spine lesions and chronic back pain. 8. Uncontrolled hypertension on admission, controlled now. 9. Depression and history of suicidal ideation in the past. 10. Remote history of smoking. DISCUSSION AND PLAN: Patient will be continued on Tamiflu. Continue the steroids and breathing treatments. Continue to monitor blood sugars. Patient was added with Imdur at this time. Cardiology is following this patient. Pulmonary has cleared the patient for discharge. Will continue the current management and further recommendations based on clinical course. Anticipate discharge in 24 hours with final Cardiology recommendations.
--- NOTE | 2016-09-17 10:30 | ECHOF ---
Referral Reason:abn troponin MEASUREMENTS -------- HEIGHT: 177.8 cm WEIGHT: 81.2 kg BP: 99/59 RVIDd: 2.6 cm (< 3.3) IVSd: 1.6 cm (0.6 - 1.1) LVIDd: 4.8 cm (3.9 - 5.3) LVPWd: 1.4 cm (0.6 - 1.1) IVSs: 2.5 cm LVIDs: 3.2 cm LVPWs: 2.1 cm LA Diam: 4.5 cm (2.7 - 3.8) LAESV Index (A-L): 30.75 ml/m Ao Diam: 3.5 cm (2.0 - 3.7) AV Cusp: 2.0 cm (1.5 - 2.6) LA Diam: 4.3 cm (2.7 - 3.8) MV EXCURSION: 14.837 mm (> 18.000) MV EF SLOPE: 86 mm/s (70 - 150) EPSS: 1.3 cm MV E Giuseppe: 1.03 m/s MV DecT: 193 ms MV A Giuseppe: 1.40 m/s MV E/A Ratio: 0.74 AV maxP.20 mmHg AV meanP.82 mmHg RAP: 5.00 mmHg RVSP: 32.80 mmHg FINDINGS -------- Sinus rhythm. This was a technically good study. There is moderate concentric left ventricular hypertrophy. Overall left ventricular systolic function is mildly impaired with, an EF between 45 - 50 %. Basal inferior LV wall motion is akinetic. Basal inferoseptal LV wall motion is hypokinetic. LA is midly dilated 29-33ml/m2. The right atrium is normal in size. Aortic valve is trileaflet and is mildly thickened. Peak/mean gradient across the Aortic Valve is 14.20mmHg / 6.82mmHg. The mitral valve leaflets are mild to moderately thickened. Mild mitral annular calcification present. [id number]-[id number] mitral regurgitation is present. The peak and mean MV gradients are 7.80mmHg 3.16mmHg as measured by doppler. Mild tricuspid regurgitation present. The right ventricular systolic pressure, as measured by Doppler, is 32.80mmHg. Pulmonic valve appears structurally normal. The aortic root size is normal. The inferior vena cava is mildly dilated. Echo free space may represent effusion or a pericardial fat pad. CONCLUSIONS -------- 1. Sinus rhythm. 2. Peak/mean gradient across the Aortic Valve is 14.20mmHg / 6.82mmHg. 3. The mitral valve leaflets are mild to moderately thickened. 4. Mild mitral annular calcification present. 5. Jexv-ig-hiauvqdu mitral regurgitation is present. 6. The peak and mean MV gradients are 7.80mmHg 3.16mmHg as measured by doppler. 7. Mild tricuspid regurgitation present. 8. The right ventricular systolic pressure, as measured by Doppler, is 32.80mmHg. 9. Pulmonic valve appears structurally normal. 10. The aortic root size is normal. 11. The inferior vena cava is mildly dilated. 12. This was a technically good study. 13. Echo free space may represent effusion or a pericardial fat pad. 14. There is moderate concentric left ventricular hypertrophy. 15. Overall left ventricular systolic function is mildly impaired with, an EF between 45 - 50 %. 16. Basal inferior LV wall motion is akinetic. 17. Basal inferoseptal LV wall motion is hypokinetic. 18. LA is midly dilated 29-33ml/m2. 19. The right atrium is normal in size. 20. Aortic valve is trileaflet and is mildly thickened. FLIGHT NURSE: Yael Terry RDCS
[2016-09-17 11:53] LABS: Glucose,Whole Blood 145 mg/dL (75-99)
[2016-09-17 12:36] VITALS: BP 132/72; PULSE 52; TEMP 97.6
--- NOTE | 2016-09-17 16:01 | P.PN ---
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 Patient is influenza A positive. He was noted to have some mild troponin elevation, he was also noted to have ST-T wave changes which were new in the inferior leads. Echocardiogram with Doppler study was performed today which revealed an ejection fraction of 45-50% with basal inferior hypokinesia. Overall the patient is feeling well today, he has had no further episodes of chest pain. Objective - Vital Signs Vital signs: Vital Signs Temp 97.6 F 09/17/16 12:00 Pulse 52 L 09/17/16 12:00 Resp 18 09/17/16 12:00 BP 132/72 09/17/16 12:00 Pulse Ox 97 09/17/16 12:00 Intake & Output 09/16/16 09/17/16 09/17/16 18:59 06:59 18:59 Intake Total 1076 382 360 Output Total 1600 Balance -524 382 360 Weight 82.1 kg Intake: IV 320 160 Sodium Chloride 0.9% 1, 320 160 000 ml @ 20 mls/hr IV . Q24H JOE Rx#:[id number] Intake, IV Titration 196 Amount Heparin Sodium,Porcine/ 196 D5w Pmx 25,000 unit In Dextrose/Water 1 500ml. bag @ 12 UNITS/KG/HR 19. 59 mls/hr IV .Q24H JOE Rx #:[id number] Oral 560 222 360 Output: Urine 1600 Other: Voiding Method Urinal Urinal Urinal # Voids 1 - Exam PHYSICAL EXAMINATION: HEENT: [Head is atraumatic, normocephalic. Pupils equal, round. Neck is supple. There is no elevated jugular venous pressure.] HEART EXAMINATION: [Heart S1, S2 normal. No murmur or gallop heard.] CHEST EXAMINATION:[ Lungs are clear to auscultation and precussion. No chest wall tenderness is noted on palpation or with deep breathing.] ABDOMEN: [ Soft, nontender. Bowel sounds are heard. No organomegaly noted]. EXTREMITIES:[ 2+ peripheral pulses with no evidence of peripheral edema and no calf tenderness noted]. NEUROLOGIC [patient is awake, alert and oriented -3.] . - Labs CBC & Chem 7: 09/17/16 05:22 09/17/16 05:22 Labs: Abnormal Lab Results - Last 24 Hours (Table) 09/16/16 09/16/16 09/16/16 Range/Units 16:36 16:55 20:53 WBC (3.8-10.6) k/uL RBC (4.30-5.90) m/uL Hgb (13.0-17.5) gm/dL Hct (39.0-53.0) % Neutrophils # (1.3-7.7) k/uL Lymphocytes # (1.0-4.8) k/uL BUN (9-20) mg/dL Glucose (74-99) mg/dL POC Glucose (mg/dL) 190 H 197 H (75-99) mg/dL Calcium (8.4-10.2) mg/dL Troponin I 0.058 H* (0.000-0.034) ng/mL 09/16/16 09/17/16 09/17/16 Range/Units 21:52 05:22 05:22 WBC 14.5 H (3.8-10.6) k/uL RBC 3.24 L (4.30-5.90) m/uL Hgb 10.2 L (13.0-17.5) gm/dL Hct 31.9 L (39.0-53.0) % Neutrophils # 13.6 H (1.3-7.7) k/uL Lymphocytes # 0.4 L (1.0-4.8) k/uL BUN (9-20) mg/dL Glucose (74-99) mg/dL POC Glucose (mg/dL) (75-99) mg/dL Calcium (8.4-10.2) mg/dL Troponin I 0.047 H* 0.055 H* (0.000-0.034) ng/mL 09/17/16 09/17/16 09/17/16 Range/Units 05:22 06:18 11:47 WBC (3.8-10.6) k/uL RBC (4.30-5.90) m/uL Hgb (13.0-17.5) gm/dL Hct (39.0-53.0) % Neutrophils # (1.3-7.7) k/uL Lymphocytes # (1.0-4.8) k/uL BUN 49 H (9-20) mg/dL Glucose 134 H (74-99) mg/dL POC Glucose (mg/dL) 134 H 145 H (75-99) mg/dL Calcium 7.3 L (8.4-10.2) mg/dL Troponin I (0.000-0.034) ng/mL Assessment and Plan (1) Elevated troponin Status: Acute (2) COPD exacerbation Status: Acute (3) Influenza Status: Acute (4) CAD (coronary artery disease) Status: Acute (5) Cancer of spinal cord Status: Acute (6) HTN (hypertension) Status: Acute (7) Hx of thyroid cancer Status: Acute (8) Hyperlipemia Status: Acute Plan: from cardiology's perspective, we'll continue with maximal medical therapy at this time. We will decrease aspirin 81 mg daily, continue Imdur 30 daily, continue the Zestril, metoprolol tartrate, pravastatin. DNP note has been reviewed, I agree with a documented findings and plan of care. Patient was seen and examined.
--- NOTE | 2016-09-17 16:34 | P.PN ---
Subjective Progress note dated 09/17/2016 This is a 76-year-old man who follows with Dr. Adames as his primary care physician. He has a history of chronic obstructive pulmonary disease maintained on appropriate medications. 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 The patient has recently been the [facility] and has undergone radiation therapy to that area. Anyway the patient came with complaints of weakness and shortness of breath. Hasn't worsening cough. The patient was found to have influenza. We thought he was possibly going to be discharged yesterday but apparently for some reason he still here. He is feeling better and hopefully go home today. He still has some mild shortness of breath. Some mild chest congestion. No fever no chills. Some muscle aches and joint aches. Objective - Vital Signs Vital signs: Vital Signs Temp 97.6 F 09/17/16 12:00 Pulse 52 L 09/17/16 12:00 Resp 18 09/17/16 12:00 BP 132/72 09/17/16 12:00 Pulse Ox 97 09/17/16 12:00 Intake & Output 09/16/16 09/17/16 09/17/16 18:59 06:59 18:59 Intake Total 1076 382 360 Output Total 1600 Balance -524 382 360 Weight 82.1 kg Intake: IV 320 160 Sodium Chloride 0.9% 1, 320 160 000 ml @ 20 mls/hr IV . Q24H JOE Rx#:[id number] Intake, IV Titration 196 Amount Heparin Sodium,Porcine/ 196 D5w Pmx 25,000 unit In Dextrose/Water 1 500ml. bag @ 12 UNITS/KG/HR 19. 59 mls/hr IV .Q24H JOE Rx #:[id number] Oral 560 222 360 Output: Urine 1600 Other: Voiding Method Urinal Urinal Urinal # Voids 1 - Exam No acute distress, oriented 3. HEENT examination is grossly unremarkable. Mucous membranes are moist. No oral lesions. Neck supple. Full range of motion. No adenopathy or thyromegaly. Neck veins are flat. Cardiovascular examination reveals regular rhythm rate. S1 and S2 normal. No murmur. Lungs are relatively clear. Breath sounds are diminished. No wheezes rhonchi or crackles. Abdomen soft bowel sounds are heard. No masses. Extremities are intact. No cyanosis clubbing or edema. Skin without rash. Neuro examination is unremarkable. - Labs CBC & Chem 7: 09/17/16 05:22 09/17/16 05:22 Labs: Abnormal Lab Results - Last 24 Hours (Table) 09/16/16 09/16/16 09/16/16 Range/Units 16:36 16:55 20:53 WBC (3.8-10.6) k/uL RBC (4.30-5.90) m/uL Hgb (13.0-17.5) gm/dL Hct (39.0-53.0) % Neutrophils # (1.3-7.7) k/uL Lymphocytes # (1.0-4.8) k/uL BUN (9-20) mg/dL Glucose (74-99) mg/dL POC Glucose (mg/dL) 190 H 197 H (75-99) mg/dL Calcium (8.4-10.2) mg/dL Troponin I 0.058 H* (0.000-0.034) ng/mL 09/16/16 09/17/16 09/17/16 Range/Units 21:52 05:22 05:22 WBC 14.5 H (3.8-10.6) k/uL RBC 3.24 L (4.30-5.90) m/uL Hgb 10.2 L (13.0-17.5) gm/dL Hct 31.9 L (39.0-53.0) % Neutrophils # 13.6 H (1.3-7.7) k/uL Lymphocytes # 0.4 L (1.0-4.8) k/uL BUN (9-20) mg/dL Glucose (74-99) mg/dL POC Glucose (mg/dL) (75-99) mg/dL Calcium (8.4-10.2) mg/dL Troponin I 0.047 H* 0.055 H* (0.000-0.034) ng/mL 09/17/16 09/17/16 09/17/16 Range/Units 05:22 06:18 11:47 WBC (3.8-10.6) k/uL RBC (4.30-5.90) m/uL Hgb (13.0-17.5) gm/dL Hct (39.0-53.0) % Neutrophils # (1.3-7.7) k/uL Lymphocytes # (1.0-4.8) k/uL BUN 49 H (9-20) mg/dL Glucose 134 H (74-99) mg/dL POC Glucose (mg/dL) 134 H 145 H (75-99) mg/dL Calcium 7.3 L (8.4-10.2) mg/dL Troponin I (0.000-0.034) ng/mL Assessment and Plan (1) COPD exacerbation Status: Acute (2) Influenza Status: Acute (3) NSTEMI (non-ST elevated myocardial infarction) Status: Acute (4) COPD (chronic obstructive pulmonary disease) Status: Acute (5) Cancer of spinal cord Status: Acute (6) HTN (hypertension) Status: Acute (7) Hx of thyroid cancer Status: Acute (8) Hyperlipemia Status: Acute Plan: Plan dated 09/17/2016 The patient is doing well. Was started on Tamiflu for influenza A. The patient will follow with Dr. Salazar in about a week or so. The patient is doing reasonably well. Again but like to be able to be discharged home. He'll follow-up with his primary doctor in about a week or so. No additional recommendations are made. Time with Patient: Less than 30
[2016-09-17 17:08] LABS: Glucose,Whole Blood 145 mg/dL (75-99)
[2016-09-18] MEDS ORDERED: ASPIRIN 81 MG CHEW PO SCH (09:00)
--- NOTE | 2016-09-18 14:26 | DS ---
DATE OF ADMISSION: 09/15/2016 DATE OF DISCHARGE: 09/17/2016 DISCHARGE DIAGNOSES: 1. Fever with generalized weakness secondary to influenza A infection covered on course with the Tamiflu. 2. Mild chronic obstructive pulmonary disease exacerbation, improved now. 3. Elevated troponin likely due to demand mismatch and possibly N-STEMI. This patient was seen by Cardiology and recommended maximal medical management. 4. History of coronary artery disease, status post stent placement previously x2. 5. History of thyroid cancer, status post thyroid surgery in 2003 and recent recurrence, status post chemoradiation at the [facility] and is also on followup with [facility]. 6. Hypothyroidism. 7. Metastatic L5 spine lesion and chronic back pain. 8. Uncontrolled hypertension on admission, controlled now. 9. Depression and history of suicidal ideation in the past. 10. Remote history of smoking. HOSPITAL COURSE: Mr. Sam is a 76-year-old male with known history of multiple medical problems as discussed above, admitted to the hospital with complaints of worsening short of breath, fever, chills and generalized weakness and found to have influenza A infection. Patient was treated symptomatically,. Otherwise patient is also having wheezing on admission with mild COPD exacerbation for which patient was started on prednisone will be continued for about 5 to 7 days and the patient also having elevated troponin level, most likely ( ). Patient was seen by Cardiology and they recommended maximal medical management and otherwise, patient is medically improved and weakness is much improved now. No cough or sputum production. Patient was seen by Pulmonary and Cardiology and ( ) was started. Patient had uncontrolled blood pressure on admission. The patient was recommended to follow with Dr. Salazar in the clinic and otherwise is stable to be discharged home. DISCHARGE PHYSICAL EXAMINATION: A 76-year-old male lying in bed comfortably, awake, alert and oriented x3, patient in no apparent distress. VITALS: Blood pressure is 132/72, pulse is 52, respirations 18, temperature afebrile, pulse ox 99% on room air. Laboratory data reviewed. WBC 14.5 most likely due to steroids and hemoglobin 10.2, platelets 220, sodium 137, potassium 4.4, chloride 105, bicarb is 25, BUN 14, creatinine 1.0, GFR greater than 60, blood sugar is 134. Discharge physical examination done. Discharge medications include: 1. Aspirin 81 mg p.o. daily. 2. Proscar 5 mg p.o. daily. 3. Levothyroxine 175 mcg p.o. daily. 4. Amlodipine 10 mg p.o. daily. 5. Formoterol, Symbicort 2 puffs b.i.d. 6. Singulair 10 mg p.o. daily. 7. Saline nostril spray 1 spray each nostril b.i.d. 8. Nitroglycerin sublingual tablets q.5 minutes p.r.n. for chest pain. 9. Gabapentin 100 mg p.o. t.i.d. 10. Lisinopril 10 mg p.o. daily. 11. Percocet 5-325 one tablet p.o. t.i.d. p.r.n. for pain. 12. Imdur 30 mg p.o. daily. 13. Synthroid 75 mcg p.o. daily. 14. Metoprolol 50 mg p.o. b.i.d. 15. Tamiflu 75 mg p.o. q.12 hours 7 more doses. 16. Pravachol 20 mg p.o. at bedtime. 17. Lyrica 150 mg p.o. b.i.d. 18. Prednisone 40 mg p.o. daily for 3 more [address] Follow with Dr. Salazar in the clinic in 1 to 2 days. ( ).
== END 2016-09-17 18:01 | disposition home or self-care (01) | DRG 190 ==
LOC: EC 04:25 → 6SEL 06:57
PROVIDERS: ADMIT Internal Medicine; ATTEND Internal Medicine
DX: J44.1 Chronic obstructive pulmonary disease with (acute) exacerbation (principal); I21.4 Non-ST elevation (NSTEMI) myocardial infarction; C79.51 Secondary malignant neoplasm of bone; J10.1 Influenza due to other identified influenza virus with other respiratory manifestations; E78.5 Hyperlipidemia, unspecified; E89.0 Postprocedural hypothyroidism; F32.9 Major depressive disorder, single episode, unspecified; F41.9 Anxiety disorder, unspecified; G89.29 Other chronic pain; I10 Essential (primary) hypertension; I16.0 Hypertensive urgency; I25.10 Atherosclerotic heart disease of native coronary artery without angina pectoris; I25.2 Old myocardial infarction; J45.909 Unspecified asthma, uncomplicated; K21.9 Gastro-esophageal reflux disease without esophagitis; M54.9 Dorsalgia, unspecified; Z79.82 Long term (current) use of aspirin; Z79.899 Other long term (current) drug therapy; Z79.52 Long term (current) use of systemic steroids; Z88.1 Allergy status to other antibiotic agents; Z85.820 Personal history of malignant melanoma of skin; Z85.850 Personal history of malignant neoplasm of thyroid; Z87.891 Personal history of nicotine dependence; Z95.5 Presence of coronary angioplasty implant and graft; Z80.0 Family history of malignant neoplasm of digestive organs
CPT/HCPCS: 36415; 71020; 80048; 80053; 80061; 82550; 82553; 83036; 83605; 83735; 83880; 84484; 85025; 85610; 85730; 87040; 87502; 93005; 93306; 94640; 94760; 96361; 96365; 96366; 96375; 96376; 99291

== ENCOUNTER → 2016-11-20 | Outpatient (CLI) | payer MEDICARE ==
[2016-11-20 13:41] LABS: Basophils % (A) 0 %; CH 32.3; CHCM 33.2; Eosinophils % (A) 0 %; HCT 39.9 % (39.0-53.0); HDW 2.71; HGB 12.7 gm/dL (13.0-17.5); Luc # (Auto) 0.09; Luc % (Auto) 1; Lymphocytes # (A) 0.8 k/uL (1.0-4.8); Lymphocytes % (A) 9 %; MCH 31.1 pg (25.0-35.0); MCHC 31.8 g/dL (31.0-37.0); MCV 97.7 fL (80.0-100.0); Mean Platelet Volume 6.4; Monocytes # (A) 0.4 k/uL (0-1.0); Monocytes % (A) 5 %; Neutrophils # (A) 7.4 k/uL (1.3-7.7); Neutrophils % (A) 85 %; RBC 4.09 m/uL (4.30-5.90); RDW 14.2 % (11.5-15.5); WBC 8.7 k/uL (3.8-10.6); WBC (Perox) 9.18
[2016-11-20 13:50] LABS: Blood Urea Nitrogen 21 mg/dL (9-20); Carbon Dioxide 24 mmol/L (22-30); Non-African American GFR(MDRD) >60 (>60 ml/min/1.73 sqM); Potassium 4.2 mmol/L (3.5-5.1); Sodium 140 mmol/L (137-145)
[2016-11-20 13:57] LABS: Anion Gap 14 mmol/L; Chloride 102 mmol/L (98-107)
== END | disposition home or self-care (01) ==
LOC: LABWHC1 13:19
PROVIDERS: ATTEND Internal Medicine Interventional Cardiology
DX: Z01.812 Encounter for preprocedural laboratory examination (principal); E78.2 Mixed hyperlipidemia; I10 Essential (primary) hypertension; I25.118 Atherosclerotic heart disease of native coronary artery with other forms of angina pectoris
CPT/HCPCS: 36415; 80051; 82565; 84520; 85025

== ENCOUNTER 2016-11-25 06:26 | Day surgery (SDC) | payer MEDICARE ==
[2016-11-23 10:02] VITALS: BMI 25.5
[~2016-11-25 06:26] MED LIST: ALPRAZolam 0.25 MG TAB PO PRN; ASPIRIN 325 MG TAB PO ONE; SODIUM CHLORIDE 0.9% 1,000 ML in EMPTY BAG 1 BAG IV ONE
[2016-11-25] MEDS ORDERED: VERAPAMIL 2.5 MG/ML 2 ML AMP ONE (07:21)
[2016-11-25] MEDS ORDERED: LIDOCAINE 2% INJ 20 MG/ML (20 ML MDV) ONE (07:22)
[2016-11-25] MEDS ORDERED: HEPARIN SODIUM 1,000 UNIT/ML VIAL ONE (07:22)
[2016-11-25] MEDS ORDERED: fentaNYL (PF) 50 MCG/ML 2 ML AMP ONE (07:25)
[2016-11-25] MEDS ORDERED: diphenhydrAMINE 50 MG/ML 1 ML VIAL ONE (07:25)
[2016-11-25] MEDS ORDERED: fentaNYL (PF) 50 MCG/ML 2 ML AMP IV ONE (07:30)
[2016-11-25] MEDS ORDERED: LIDOCAINE 2% INJ 20 MG/ML SQ ONE (07:35)
[2016-11-25] MEDS ORDERED: MIDAZOLAM 2 MG/2 ML VIAL ONE (07:35)
[2016-11-25] MEDS ORDERED: MIDAZOLAM 2 MG/2 ML VIAL IV ONE (07:37)
[2016-11-25] MEDS: VERAPAMIL SYRINGE (5 MG/10 ML) INTRAARTER ONE ×2 (07:41→07:57)
[2016-11-25] MEDS ORDERED: HEPARIN SODIUM 1,000 UNIT/ML VIAL IV ONE (07:52)
[2016-11-25] MEDS ORDERED: IOHEXOL 350 MG/ML 125ML BOTTLE INJ ONE (07:57)
[2016-11-25] MEDS ORDERED: RX INFO: IV CONTRAST WAS GIVEN 1 EACH MISC MISCELLANE PRN (08:18)
[2016-11-25] MEDS ORDERED: oxyCODONE-APAP 10-325MG 1 EACH TAB PO PRN ×2 (08:19)
[2016-11-25] MEDS ORDERED: NITROGLYCERIN SL TABS 0.4 MG TAB SUBLINGUAL PRN (08:19)
[2016-11-25 08:25] VITALS: RESP 16
[2016-11-25] MEDS ORDERED: SODIUM CHLORIDE 0.9% 1,000 ML IV SCH (08:30)
[2016-11-25] MEDS ORDERED: FINASTERIDE 5 MG TAB PO SCH (09:00)
[2016-11-25] MEDS ORDERED: ISOSORBIDE MONONITRATE ER 30 MG TAB.ER.24H PO SCH (09:00)
[2016-11-25] MEDS ORDERED: ASPIRIN 81 MG CHEW PO SCH (09:00)
[2016-11-25] MEDS ORDERED: predniSONE 10 MG TAB PO SCH (09:00)
[2016-11-25] MEDS ORDERED: MONTELUKAST 10 MG TAB PO SCH (09:00)
[2016-11-25] MEDS ORDERED: NON-FORMULARY DRUG (Levothyroxine Sodium [Synthroid] 175 MCG) PO SCH (09:00)
[2016-11-25] MEDS ORDERED: amLODIPine 10 MG TAB PO SCH (09:00)
[2016-11-25] MEDS ORDERED: GABAPENTIN 300 MG CAP PO SCH (09:00)
[2016-11-25] MEDS ORDERED: FLUTICASONE 50MCG/SPRAY NASAL 16GM EA NOSTRIL SCH (09:00)
[2016-11-25] MEDS ORDERED: LISINOPRIL 10 MG TAB PO SCH (09:00)
[2016-11-25] MEDS ORDERED: GABAPENTIN 300 MG CAP PO ONE (09:30)
[2016-11-25 12:26] VITALS: PULSE 65
--- NOTE | 2016-11-25 13:17 | P.CON ---
Consult Note - . 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 He has previous history of thyroidectomy and chemoradiation. Patient had been hospitalized in August at which time he been found to have shortness of breath and a degree of congestive heart failure. He comes to the hospital today as an outpatient for elective cardiac catheterization. This demonstrates severe disease in the right coronary artery with a proximal 95-99% stenosis and moderate disease in the proximal to mid LAD The case is discussed with Dr. Rony Fine. The patient would be extremely high risk for bypass surgery due to very poor performance status and his long- term longevity is highly questionable given his metastatic cancer. For these reasons we both agreed that the patient is not an appropriate candidate for bypass surgery.
[2016-11-25 15:15] VITALS: BP 137/82
[2016-11-25] MEDS ORDERED: SYMBICORT 160-4.5 MCG INHALER INHALATION SCH (20:00)
[2016-11-25] MEDS ORDERED: PRAVASTATIN SODIUM 20 MG TAB PO SCH (21:00)
--- NOTE | 2016-12-04 09:11 | CC ---
DATE OF SERVICE: 11/25/2016 Mr. Sma is a 76-year-old male with known history of hypertension, hyperlipidemia, history of coronary artery disease who presented with symptoms of angina pectoris, exertional pattern. In view of that, recommendation was made regarding cardiac catheterization. The procedure as well as the risks and the complications were discussed with the patient who is in full understanding and agreement. PROCEDURE: The patient was brought to the director of laboratory operations in fasting semi-sedated state after receiving Fentanyl and Benadryl and after achieved moderate conscious sedated state, he was draped and prepped in conventional fashion. Using Xylocaine anesthesia under sterile technique, a 6 Mongolian sheath was introduced in the right radial artery. Selective right and left coronary angiography was performed using 5 Mongolian, 3-1/2 bed right and left Jonny catheter. Multiple views of the coronary artery including hemiaxial views obtained. Following that, 5 Mongolian tight pigtail catheter was introduced in the left ventricle and a 30-degree HANNAH view of the left ventricle was obtained. Following that, catheter and sheath were removed. Hemostasis was obtained with deployment of TR band. There was no immediate complication. Of note, the patient received 4000 units of intravenous heparin as well as intraarterial verapamil. FINDINGS: FLUOROSCOPY: There is calcification involving the proximal right coronary artery. LEFT MAIN: This is a short-size vessel, bifurcating in the left circumflex, left anterior descending artery. Left main coronary artery has no evidence of high grade stenosis. LEFT ANTERIOR DESCENDING ARTERY: This is a large size vessel reaching towards the apex with a wrap around apex segment giving rise to 2 obtuse marginal branches of moderate caliber at the take off of the first obtuse marginal branch in the proximal segment of the vessel. There is an area of stenosis up to 80%. The rest of the vessel has not high grade stenosis. LEFT CIRCUMFLEX: This is a nondominant vessel giving rise to 3 obtuse marginal branches. The left circumflex as well as branches have no evidence of significant obstructive disease. RIGHT CORONARY ARTERY: This vessel as subtotally occluded at the ostium with what appears to be bridging collaterals with slow flow in the distal vessel. The stented segment in the distal segment appears to be patent. COLLATERALS: There is collateral from the left coronary system toward the right PDA and PLV until the mid RCA. LEFT VENTRICULOGRAM: Left ventriculogram is performed in 30-degree HANNAH view and revealed inferior wall severe hypokinesis with 2+ mitral regurgitation. Ejection fraction estimated at 45%. IMPRESSION: 1. Chronic occluded ostial right coronary artery with slow flow in the distal vessel and collaterals from the left system. 2. Significant disease in the proximal left anterior descending artery. 3. Mildly impaired left ventricular systolic function with 2+ mitral regurgitation. RECOMMENDATIONS: At this time, I will obtain the surgical opinion for the possibility of surgical revascularization. Otherwise, the option is to percutaneously revascularize the LAD and if he still has symptoms then consider an angioplasty and stenting of the AUTOMATIC TIRE TESTER of the RCA. Those findings and recommendations were discussed with the patient and his family and are in full understanding and agreement. Duration of the procedure is 25 minutes. NAHUN
--- NOTE | 2016-12-04 09:19 | MISC ---
November 25, 2016 Krystian Salazar MD Re: Sp Burkaus Dear Dr. Salazar: I had the opportunity to perform cardiac catheterization on Mr. Sam at [facility] on the 25 of November and a full copy of the procedure note will be forwarded to you. In brief, he was found to have a chronically occluded ostial RCA with significant disease in the proximal LAD and a mildly impaired left ventricular systolic function. At this time, I will obtain a surgical opinion and if he is felt to be a high risk for surgical intervention, then I will proceed with percutaneous revascularization of the LAD and if he has persistent symptoms then we will consider percutaneous revascularization of the chronic total occlusion of the RCA. I will keep you updated on his progress. Thank you again for allowing me the opportunity to participate in his care. Please feel free to call for any questions. Sincerely yours, Rony Fine MD [facility] CENTERDiana
== END 2016-11-25 14:10 | disposition home or self-care (01) ==
LOC: CATHCVL 06:26
PROVIDERS: ATTEND Internal Medicine Interventional Cardiology
DX: I25.118 Atherosclerotic heart disease of native coronary artery with other forms of angina pectoris (principal); I25.84 Coronary atherosclerosis due to calcified coronary lesion; I11.0 Hypertensive heart disease with heart failure; I50.9 Heart failure, unspecified; Z87.891 Personal history of nicotine dependence; I34.0 Nonrheumatic mitral (valve) insufficiency; E78.2 Mixed hyperlipidemia; C78.00 Secondary malignant neoplasm of unspecified lung; E89.0 Postprocedural hypothyroidism; I73.9 Peripheral vascular disease, unspecified; J42 Unspecified chronic bronchitis; Z85.850 Personal history of malignant neoplasm of thyroid; C79.51 Secondary malignant neoplasm of bone; Z79.82 Long term (current) use of aspirin; Z79.891 Long term (current) use of opiate analgesic; Z79.899 Other long term (current) drug therapy; Z88.1 Allergy status to other antibiotic agents
CPT/HCPCS: 93458; 99152; 99153; C1769 ×2; C1894; J2001; J2250; J3010; J1644; Q9967

== ENCOUNTER 2016-12-09 06:26 | Day surgery (SDC) | payer MEDICARE ==
[2016-12-07 09:03] VITALS: BMI 25.9
[~2016-12-09 06:26] MED LIST changes: +ALPRAZolam 0.5 MG TAB PO PRN; -ASPIRIN 325 MG TAB PO ONE; +ASPIRIN 325 MG TAB PO STA; +ATORVASTATIN 80 MG TAB PO STA; +NITROGLYCERIN SL TABS 0.4 MG TAB SUBLINGUAL PRN
[2016-12-09] MEDS ORDERED: SODIUM CHLORIDE 0.9% 1,000 ML IV ONE (07:09)
[2016-12-09] MEDS ORDERED: LIDOCAINE 2% INJ 20 MG/ML (20 ML MDV) ONE (07:16)
[2016-12-09] MEDS ORDERED: diphenhydrAMINE 50 MG/ML 1 ML VIAL ONE (07:16)
[2016-12-09] MEDS ORDERED: fentaNYL (PF) 50 MCG/ML 2 ML AMP ONE (07:16)
[2016-12-09] MEDS ORDERED: VERAPAMIL 2.5 MG/ML 2 ML AMP ONE (07:16)
[2016-12-09] MEDS ORDERED: fentaNYL (PF) 50 MCG/ML 2 ML AMP IV ONE (07:35)
[2016-12-09] MEDS ORDERED: LIDOCAINE 2% INJ 20 MG/ML SQ ONE (07:38)
[2016-12-09] MEDS ORDERED: MIDAZOLAM 2 MG/2 ML VIAL ONE (07:39)
[2016-12-09] MEDS ORDERED: MIDAZOLAM 2 MG/2 ML VIAL IV ONE (07:41)
[2016-12-09] MEDS ORDERED: VERAPAMIL SYRINGE (5 MG/10 ML) INTRAARTER ONE (07:42)
[2016-12-09] MEDS ORDERED: BIVALIRUDIN BOLUS 250 MG/50 ML IV ONE (07:47)
[2016-12-09] MEDS ORDERED: CLOPIDOGREL 75 MG TAB ONE (07:48)
[2016-12-09] MEDS ORDERED: BIVALIRUDIN 250 MG in SODIUM CHLORIDE 0.9% 50 ML IV ONE (07:48)
[2016-12-09] MEDS ORDERED: CLOPIDOGREL 75 MG TAB PO ONE (07:53)
[2016-12-09] MEDS: NITROGLYCERIN 1000MCG/10ML SYRINGE INTRAARTER ONE ×2 (07:59→08:07)
[2016-12-09] MEDS ORDERED: IOHEXOL 350 MG/ML 125ML BOTTLE INJ ONE (08:17)
[2016-12-09] MEDS ORDERED: ZOLPIDEM 5 MG TAB PO PRN (08:38)
[2016-12-09] MEDS ORDERED: RX INFO: IV CONTRAST WAS GIVEN 1 EACH MISC MISCELLANE PRN (08:38)
[2016-12-09] MEDS ORDERED: MAG HYDROX/AL HYDROX/SIMETH 30 ML CUP PO PRN (08:38)
[2016-12-09] MEDS ORDERED: NITROGLYCERIN SL TABS 0.4 MG TAB SUBLINGUAL PRN ×2 (08:38→08:39)
[2016-12-09] MEDS ORDERED: ATROPINE SULFATE 0.1 MG/ML 10ML SYRINGE IV PRN (08:38)
[2016-12-09] MEDS ORDERED: oxyCODONE-APAP 10-325MG 1 EACH TAB PO PRN (08:39)
[2016-12-09] MEDS ORDERED: SODIUM CHLORIDE 0.9% 1,000 ML IV SCH (08:45)
[2016-12-09] MEDS: ATORVASTATIN 40 MG TAB PO SCH (12:04)
[2016-12-09] MEDS: ASPIRIN 81 MG CHEW PO SCH (12:04)
[2016-12-09] MEDS: LEVOTHYROXINE 100 MCG TAB PO SCH (12:16)
[2016-12-09] MEDS: LEVOTHYROXINE 75 MCG TAB PO SCH (12:16)
[2016-12-09] MEDS: predniSONE 10 MG TAB PO SCH (12:16)
[2016-12-09] MEDS: MONTELUKAST 10 MG TAB PO SCH (12:16)
[2016-12-09] MEDS: LISINOPRIL 10 MG TAB PO SCH (12:16)
[2016-12-09] MEDS: GABAPENTIN 300 MG CAP PO SCH ×3 (12:16→22:26)
[2016-12-09] MEDS: ISOSORBIDE MONONITRATE ER 30 MG TAB.ER.24H PO SCH (12:16)
[2016-12-09] MEDS: FINASTERIDE 5 MG TAB PO SCH (12:16)
--- NOTE | 2016-12-09 12:52 | AN ---
The patient is a 76 year old male with a known history of coronary artery disease who presented with symptoms of chest discomfort. He had underwent cardiac catheterization that revealed chronic occluded right coronary artery with significant disease in the proximal LAD. He was evaluated by the cardiovascular surgical team and because of his history of cancer metastasis, he was not felt to be a surgical candidate. In view of that, recommendations were made regarding angioplasty and stenting. The procedure as well as the risks and the complications were discussed with the patient who is in full understanding and agreement. PROCEDURE: The patient was brought to the blood bank laboratory technician in the fasting semi-sedated state and after receiving Fentanyl and Benadryl and achieving moderate conscious sedation state, using Xylocaine anesthesia and surgical technique, a 6 Swazi sheath was introduced in the left radial artery. Attempt to cannulate the left main using a 6 Swazi FR4 and a 6 Swazi 3.75 EBU guiding catheter were unsuccessful. Those catheters were removed and a 6 Swazi LAD XB 3.5 guiding catheter introduced. After cannulating the left main, a 0.014 ( ) wire was advanced across the lesion, positioned distally, then a 3.5 by 18 mm Xience ( ) stent was deployed, ( ) at 14 atmospheres. After the last inflation, after appropriate wait, the balloon and the guide wire were withdrawn back in the guiding catheter, images were obtained and repeated. Those images revealed stable successful stenting at that point. The guiding catheter, the balloon and the guide wire removed and a 5 Swazi 4 band right Jonny's catheter was introduced into the system. Images of the right coronary artery system were obtained. Following that, the catheter and sheath were moved, hemostasis was obtained with deployment of a TR band. There was no immediate complications. The patient was returned to his room in stable condition. Of note, the patient received Angiomax per protocol, as well as oral loading dose of klopidogrel. He had chest discomfort and EKG changes with the inflation that resolved at the end of the procedure. DURATION OF THE PROCEDURE: 39 minutes. RESULTS: 1. Successful stenting of the proximal LAD with reduction in stenosis from 70% to 0%. 2. Chronic occluded right coronary artery from the ostium with bridging collaterals toward the mid and distal. RECOMMENDATIONS: The patient will be continued on Aspirin, Plavix, beta terri and lorene inhibitor. The importance of dual antiplatelet treatment was discussed with the patient and his family, who are in full understanding and agreement. NAHUN
--- NOTE | 2016-12-09 12:57 | MISC ---
RE: Sp Flaco Dear Dr. Salazar: I had the opportunity to peform coronary angioplasty and stenting on Mr. Sam at [facility] on the 09 of December and a full copy of the procedure note will be forwarded to you. In brief, he underwent successful stenting of his mid LAD using a drug elluding stent. I am hopeful that this procedure will stabilize his staus and I thank you again for allowing me the opportunity to participate in his care. Please feel free to call me for any questions. Sincerely, NAHUN
[2016-12-09] MEDS: amLODIPine 10 MG TAB PO SCH (15:57)
[2016-12-09] MEDS: SYMBICORT 160-4.5 MCG INHALER INHALATION SCH (19:34)
[2016-12-10] MEDS: LEVOTHYROXINE 100 MCG TAB PO SCH (06:35)
[2016-12-10] MEDS: LEVOTHYROXINE 75 MCG TAB PO SCH (06:35)
[2016-12-10 06:59] LABS: Anion Gap 10 mmol/L; Blood Urea Nitrogen 15 mg/dL (9-20); Carbon Dioxide 26 mmol/L (22-30); Chloride 108 mmol/L (98-107); Glucose 83 mg/dL (74-99); Non-African American GFR(MDRD) >60 (>60 ml/min/1.73 sqM); Potassium 3.5 mmol/L (3.5-5.1); Sodium 144 mmol/L (137-145)
[2016-12-10] MEDS: GABAPENTIN 300 MG CAP PO SCH (07:59)
[2016-12-10] MEDS: ASPIRIN 81 MG CHEW PO SCH (07:59)
[2016-12-10] MEDS: amLODIPine 10 MG TAB PO SCH (07:59)
[2016-12-10] MEDS: ATORVASTATIN 40 MG TAB PO SCH (07:59)
[2016-12-10] MEDS: FINASTERIDE 5 MG TAB PO SCH (07:59)
[2016-12-10] MEDS: predniSONE 10 MG TAB PO SCH (08:00)
[2016-12-10] MEDS: MONTELUKAST 10 MG TAB PO SCH (08:00)
[2016-12-10] MEDS: ISOSORBIDE MONONITRATE ER 30 MG TAB.ER.24H PO SCH (08:00)
[2016-12-10] MEDS: LISINOPRIL 10 MG TAB PO SCH (08:00)
[2016-12-10] MEDS ORDERED: CLOPIDOGREL 75 MG TAB PO SCH ×2 (08:39→09:00)
[2016-12-10] MEDS: SYMBICORT 160-4.5 MCG INHALER INHALATION SCH (08:54)
[2016-12-10 09:25] VITALS: BP 133/65; PULSE 77; RESP 18; TEMP 97.1
--- NOTE | 2016-12-10 13:18 | PN ---
Mr. Sam is a 76-year-old male with known history of coronary artery disease who was admitted and underwent stenting of the LAD using left radial approach. He is doing well today, ambulating without difficulty. Denying chest pain. No dizziness. No palpitation. No nausea. He has a known chronically occluded right coronary artery. He is on aspirin, amlodipine 10 mg daily, Lipitor 40 mg daily, Plavix 75 mg daily, gabapentin 600 mg 3 times a day, isosorbide mononitrate 30 mg daily, lisinopril 10 mg daily, prednisone 10 mg daily. PHYSICAL EXAMINATION: Blood pressure is 133/60 with the heart rate in the 70s. LUNGS: Clear. HEART: Regular rate and rhythm. S1, S2. No S3, no rub. ABDOMEN: Soft, nontender. EXTREMITIES: No edema. Left radial pulse intact. Lab data revealed a BUN and creatinine 15 and 0.59. IMPRESSION: 1. Status post stenting of the left anterior descending artery. 2. Chronic occluded right coronary artery. 3. Hypertension. 4. Hyperlipidemia. 5. History of thyroid cancer with bone metastasis. RECOMMENDATIONS: From the cardiac standpoint, he should be able to be discharged home today and followed as an outpatient. NAHUN
== END 2016-12-10 11:59 | disposition home or self-care (01) ==
LOC: CATHCVL 06:26 → 6SEL 08:13 → CATHCVL 12-10 11:59
PROVIDERS: ATTEND Internal Medicine Interventional Cardiology
DX: I25.10 Atherosclerotic heart disease of native coronary artery without angina pectoris (principal); I25.82 Chronic total occlusion of coronary artery; I10 Essential (primary) hypertension; E78.5 Hyperlipidemia, unspecified; Z85.850 Personal history of malignant neoplasm of thyroid; Z85.830 Personal history of malignant neoplasm of bone; Z79.02 Long term (current) use of antithrombotics/antiplatelets; Z79.82 Long term (current) use of aspirin; Z79.52 Long term (current) use of systemic steroids; Z79.899 Other long term (current) drug therapy
CPT/HCPCS: 94640 ×2; 94760; 93454; 85347; 80048; 99152; 99153 ×3; C9600; C1769 ×3; C1887 ×3; C1894; C1874; J2001; S0138; J2250; J3010; J0583; J7512; Q9967

== ENCOUNTER → 2017-04-06 | Outpatient (CLI) | payer MEDICARE | LOC: LABWHC1 09:11 | PROVIDERS: ATTEND Internal Medicine Critical Care Medicine | DX: R73.03 Prediabetes (principal); R73.09 Other abnormal glucose | CPT/HCPCS: 36415; 82232; 82947; 83036 ==

== ENCOUNTER 2017-06-19 21:57 | Inpatient (IN) | payer MEDICARE ==
[2017-06-19] MEDS ORDERED: ACETAMINOPHEN TAB 500 MG TAB PO STA (22:15)
[2017-06-19] MEDS ORDERED: IBUPROFEN 600 MG TAB PO STA (22:15)
[2017-06-19 22:20] LABS: Glucose,Whole Blood 439 mg/dL (75-99)
--- NOTE | 2017-06-19 22:20 | ED ---
General Adult HPI - General Chief complaint: Chest Pain Stated complaint: Fever Time Seen by Provider: 06/19/17 22:00 Source: EMS, RN notes reviewed Mode of arrival: EMS Limitations: no limitations - History of Present Illness Initial comments: This is a 76-year-old male who has a past medical history significant for thyroid cancer for which she has recently receiving chemo. Patient has also been on some steroids for some breathing issues according to the . Patient comes in today because after dinner at about 7:30 he started getting the shakes and he didn't know why. Patient states after that he had a little bit of sharp chest pain. Patient's states he also is a little bit delirious at times seemed to be more confused than normal. Patient was unaware that he had a fever. Patient states he has been coughing quite a bit but there is no sputum production. Patient denies any abdominal pain patient denies nausea vomiting diarrhea. Patient denies any rashes. Patient does complain of right ankle and foot pain he states he injured about 2 weeks ago but no one checked out. Patient denies any dysuria hematuria urinary frequency. Patient denies any flu shot this year. - Related Data Home Medications Medication Instructions Recorded Confirmed Aspirin 81 mg PO DAILY 06/25/14 12/09/16 Finasteride [Proscar] 5 mg PO DAILY 06/25/14 12/09/16 Levothyroxine Sodium [Synthroid] 175 mcg PO DAILY 06/25/14 12/09/16 amLODIPine [Norvasc] 10 mg PO DAILY 06/25/14 12/09/16 Budesonide/Formoterol Fumarate 2 puff INHALATION RT-BID 06/26/16 12/09/16 [Symbicort 160-4.5 Mcg Inhaler] Montelukast [Singulair] 10 mg PO DAILY 06/26/16 12/09/16 Lisinopril [Zestril] 10 mg PO DAILY 09/15/16 12/09/16 Gabapentin [Neurontin] 600 mg PO TID 11/23/16 12/09/16 predniSONE 10 mg PO DAILY 11/23/16 12/09/16 oxyCODONE-APAP 10-325MG [Percocet 2 tab PO Q4HR PRN MDD 1-2 tabs q 4 11/25/16 10-325 mg] hrs prn Pravastatin Sodium [Pravachol] 20 mg PO HS 12/10/16 12/10/16 Previous Rx's Medication Instructions Recorded Nitroglycerin Sl Tabs [Nitrostat] 0.4 mg SUBLINGUAL Q5M PRN #100 tab 06/29/16 Isosorbide Mononitrate ER [Imdur] 30 mg PO DAILY #90 tab 11/25/16 Atorvastatin [Lipitor] 40 mg PO DAILY #90 tab 12/10/16 Clopidogrel [Plavix] 75 mg PO DAILY #90 tab 12/10/16 Allergies Allergy/AdvReac Type Severity Reaction Status Date / Time cefuroxime axetil Allergy Rash/Hives Verified 06/19/17 22:07 [From Ceftin] Review of Systems ROS Statement: Those systems with pertinent positive or pertinent negative responses have been documented in the HPI. ROS Other: All systems not noted in ROS Statement are negative. 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 , PT states no changes to his health hx since 11/23/16 except CVL procedure on 11/25/16. See [facility] 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 Father Family Medical History: Cancer Additional Family Medical History / Comment(s): Father of colon ca at the age of 85 yrs. General Exam - General Exam Comments Initial Comments: GENERAL: Patient is well-developed and well-nourished. Patient is nontoxic and well- hydrated and is in mild distress. ENT: Neck is soft and supple. No significant lymphadenopathy is noted. Oropharynx is clear. Moist mucous membranes. Neck has full range of motion without eliciting any pain. EYES: The sclera were anicteric and conjunctiva were pink and moist. Extraocular movements were intact and pupils were equal round and reactive to light. Eyelids were unremarkable. PULMONARY: Unlabored respirations. Good breath sounds bilaterally. No audible rales rhonchi or wheezing was noted. CARDIOVASCULAR: There is a regular rate and rhythm without any murmurs gallops or rubs. ABDOMEN: Soft and nontender with normal bowel sounds. No palpable organomegaly was noted. There is no palpable pulsatile mass. SKIN: Skin is clear with no lesions or rashes and otherwise unremarkable. NEUROLOGIC: Patient is alert and oriented x3. Cranial nerves II through XII are grossly intact. Motor and sensory are also intact. Normal speech, volume and content. Symmetrical smile. MUSCULOSKELETAL: Right ankle and foot are edematous and ecchymotic and diffusely tender. Patient has 2+ edema bilaterally LYMPHATICS: No significant lymphadenopathy is noted PSYCHIATRIC: Normal psychiatric evaluation. Normal interpersonal interactions appears functionally intact in deals appropriately with others. No signs of depression. No signs of anxiety. Limitations: no limitations Course Vital Signs 06/19/17 06/19/17 06/19/17 22:01 22:33 23:20 Temperature 103.1 F H Pulse Rate 104 H 93 93 Respiratory 20 18 20 Rate Blood Pressure 185/91 179/98 148/78 O2 Sat by Pulse 93 L 95 95 Oximetry 06/20/17 00:14 Temperature 102.3 F H Pulse Rate 110 H Respiratory 20 Rate Blood Pressure 167/80 O2 Sat by Pulse 95 Oximetry Medical Decision Making - Medical Decision Making EKG shows sinus tachycardia at 101 bpm NC interval 224 QRS is 78 QT interval 320 QTC is 425. Patient's EKG shows no ST segment elevation or depression or T wave abnormalities are noted. Patient has a pneumonia on the left lower left middle lobe. Started the patient on Levaquin and Zosyn. Patient has a low calcium. I gave the patient 100 mg of calcium chloride. I also ordered a magnesium. I spoke with Dr. Pastrana he agreed to admit the patient admitted the patient I wrote admitting orders. - Lab Data Result diagrams: 06/19/17 22:27 06/19/17 22:27 Lab Results 06/19/17 06/19/17 06/19/17 Range/Units 22:07 22:27 22:27 WBC 8.1 (3.8-10.6) k/uL RBC 3.72 L (4.30-5.90) m/uL Hgb 12.2 L (13.0-17.5) gm/dL Hct 36.7 L (39.0-53.0) % MCV 98.5 (80.0-100.0) fL MCH 32.7 (25.0-35.0) pg MCHC 33.2 (31.0-37.0) g/dL RDW 15.2 (11.5-15.5) % Plt Count 139 L (150-450) k/uL Neutrophils % 92 % Lymphocytes % 4 % Monocytes % 3 % Eosinophils % 0 % Basophils % 0 % Neutrophils # 7.5 (1.3-7.7) k/uL Lymphocytes # 0.3 L (1.0-4.8) k/uL Monocytes # 0.3 (0-1.0) k/uL Eosinophils # 0.0 (0-0.7) k/uL Basophils # 0.0 (0-0.2) k/uL PT (9.0-12.0) sec INR (<1.2) APTT (22.0-30.0) sec Sodium (137-145) mmol/L Potassium (3.5-5.1) mmol/L Chloride (98-107) mmol/L Carbon Dioxide (22-30) mmol/L Anion Gap mmol/L BUN (9-20) mg/dL Creatinine (0.66-1.25) mg/dL Est GFR (MDRD) Af Amer (>60 ml/min/1.73 sqM) Est GFR (MDRD) Non-Af (>60 ml/min/1.73 sqM) Glucose (74-99) mg/dL POC Glucose (mg/dL) 439 H (75-99) mg/dL POC Glu Ict Managers ID Tomeka Lizarraga Plasma Lactic Acid Sadi (0.7-2.0) mmol/L Calcium (8.4-10.2) mg/dL Magnesium (1.6-2.3) mg/dL Total Bilirubin (0.2-1.3) mg/dL AST (17-59) U/L ALT (21-72) U/L Alkaline Phosphatase (38-126) U/L Total Creatine Kinase 215 H (55-170) U/L CK-MB (CK-2) 4.0 H* (0.0-2.4) ng/mL CK-MB (CK-2) Rel Index 1.9 Troponin I 0.047 H* (0.000-0.034) ng/mL NT-Pro-B Natriuret Pep pg/mL Total Protein (6.3-8.2) g/dL Albumin (3.5-5.0) g/dL Urine Color Urine Appearance (Clear) Urine pH (5.0-8.0) Ur Specific [place] (1.001-1.035) Urine Protein (Negative) Urine Glucose (UA) (Negative) Urine Ketones (Negative) Urine Blood (Negative) Urine Nitrite (Negative) Urine Bilirubin (Negative) Urine Urobilinogen (<2.0) mg/dL Ur Leukocyte Esterase (Negative) Urine RBC (0-5) /hpf Urine WBC (0-5) /hpf Hyaline Casts (0-2) /lpf Urine Mucus (None) /hpf Acetone, Qual (Negative) Influenza Type A RNA (Not Detectd) Influenza Type B (PCR) (Not Detectd) 06/19/17 06/19/17 06/19/17 Range/Units 22:27 22:27 22:27 WBC (3.8-10.6) k/uL RBC (4.30-5.90) m/uL Hgb (13.0-17.5) gm/dL Hct (39.0-53.0) % MCV (80.0-100.0) fL MCH (25.0-35.0) pg MCHC (31.0-37.0) g/dL RDW (11.5-15.5) % Plt Count (150-450) k/uL Neutrophils % % Lymphocytes % % Monocytes % % Eosinophils % % Basophils % % Neutrophils # (1.3-7.7) k/uL Lymphocytes # (1.0-4.8) k/uL Monocytes # (0-1.0) k/uL Eosinophils # (0-0.7) k/uL Basophils # (0-0.2) k/uL PT (9.0-12.0) sec INR (<1.2) APTT (22.0-30.0) sec Sodium 133 L (137-145) mmol/L Potassium 3.9 (3.5-5.1) mmol/L Chloride 95 L (98-107) mmol/L Carbon Dioxide 25 (22-30) mmol/L Anion Gap 13 mmol/L BUN 23 H (9-20) mg/dL Creatinine 0.70 (0.66-1.25) mg/dL Est GFR (MDRD) Af Amer >60 (>60 ml/min/1.73 sqM) Est GFR (MDRD) Non-Af >60 (>60 ml/min/1.73 sqM) Glucose 402 H (74-99) mg/dL POC Glucose (mg/dL) (75-99) mg/dL POC Glu Ict Managers ID Plasma Lactic Acid Sadi 5.0 H* (0.7-2.0) mmol/L Calcium 6.6 L (8.4-10.2) mg/dL Magnesium (1.6-2.3) mg/dL Total Bilirubin 0.6 (0.2-1.3) mg/dL AST 30 (17-59) U/L ALT 89 H (21-72) U/L Alkaline Phosphatase 167 H (38-126) U/L Total Creatine Kinase (55-170) U/L CK-MB (CK-2) (0.0-2.4) ng/mL CK-MB (CK-2) Rel Index Troponin I (0.000-0.034) ng/mL NT-Pro-B Natriuret Pep pg/mL Total Protein 5.4 L (6.3-8.2) g/dL Albumin 3.3 L (3.5-5.0) g/dL Urine Color Urine Appearance (Clear) Urine pH (5.0-8.0) Ur Specific [place] (1.001-1.035) Urine Protein (Negative) Urine Glucose (UA) (Negative) Urine Ketones (Negative) Urine Blood (Negative) Urine Nitrite (Negative) Urine Bilirubin (Negative) Urine Urobilinogen (<2.0) mg/dL Ur Leukocyte Esterase (Negative) Urine RBC (0-5) /hpf Urine WBC (0-5) /hpf Hyaline Casts (0-2) /lpf Urine Mucus (None) /hpf Acetone, Qual Negative (Negative) Influenza Type A RNA Not Detected (Not Detectd) Influenza Type B (PCR) Not Detected (Not Detectd) 06/19/17 06/19/17 06/19/17 Range/Units 22:27 22:27 22:27 WBC (3.8-10.6) k/uL RBC (4.30-5.90) m/uL Hgb (13.0-17.5) gm/dL Hct (39.0-53.0) % MCV (80.0-100.0) fL MCH (25.0-35.0) pg MCHC (31.0-37.0) g/dL RDW (11.5-15.5) % Plt Count (150-450) k/uL Neutrophils % % Lymphocytes % % Monocytes % % Eosinophils % % Basophils % % Neutrophils # (1.3-7.7) k/uL Lymphocytes # (1.0-4.8) k/uL Monocytes # (0-1.0) k/uL Eosinophils # (0-0.7) k/uL Basophils # (0-0.2) k/uL PT 9.6 (9.0-12.0) sec INR 1.0 (<1.2) APTT 20.0 L (22.0-30.0) sec Sodium (137-145) mmol/L Potassium (3.5-5.1) mmol/L Chloride (98-107) mmol/L Carbon Dioxide (22-30) mmol/L Anion Gap mmol/L BUN (9-20) mg/dL Creatinine (0.66-1.25) mg/dL Est GFR (MDRD) Af Amer (>60 ml/min/1.73 sqM) Est GFR (MDRD) Non-Af (>60 ml/min/1.73 sqM) Glucose (74-99) mg/dL POC Glucose (mg/dL) (75-99) mg/dL POC Glu Ict Managers ID Plasma Lactic Acid Sadi (0.7-2.0) mmol/L Calcium (8.4-10.2) mg/dL Magnesium 1.6 (1.6-2.3) mg/dL Total Bilirubin (0.2-1.3) mg/dL AST (17-59) U/L ALT (21-72) U/L Alkaline Phosphatase (38-126) U/L Total Creatine Kinase (55-170) U/L CK-MB (CK-2) (0.0-2.4) ng/mL CK-MB (CK-2) Rel Index Troponin I (0.000-0.034) ng/mL NT-Pro-B Natriuret Pep 1540 pg/mL Total Protein (6.3-8.2) g/dL Albumin (3.5-5.0) g/dL Urine Color Urine Appearance (Clear) Urine pH (5.0-8.0) Ur Specific [place] (1.001-1.035) Urine Protein (Negative) Urine Glucose (UA) (Negative) Urine Ketones (Negative) Urine Blood (Negative) Urine Nitrite (Negative) Urine Bilirubin (Negative) Urine Urobilinogen (<2.0) mg/dL Ur Leukocyte Esterase (Negative) Urine RBC (0-5) /hpf Urine WBC (0-5) /hpf Hyaline Casts (0-2) /lpf Urine Mucus (None) /hpf Acetone, Qual (Negative) Influenza Type A RNA (Not Detectd) Influenza Type B (PCR) (Not Detectd) 06/19/17 06/20/17 Range/Units 23:00 00:03 WBC (3.8-10.6) k/uL RBC (4.30-5.90) m/uL Hgb (13.0-17.5) gm/dL Hct (39.0-53.0) % MCV (80.0-100.0) fL MCH (25.0-35.0) pg MCHC (31.0-37.0) g/dL RDW (11.5-15.5) % Plt Count (150-450) k/uL Neutrophils % % Lymphocytes % % Monocytes % % Eosinophils % % Basophils % % Neutrophils # (1.3-7.7) k/uL Lymphocytes # (1.0-4.8) k/uL Monocytes # (0-1.0) k/uL Eosinophils # (0-0.7) k/uL Basophils # (0-0.2) k/uL PT (9.0-12.0) sec INR (<1.2) APTT (22.0-30.0) sec Sodium (137-145) mmol/L Potassium (3.5-5.1) mmol/L Chloride (98-107) mmol/L Carbon Dioxide (22-30) mmol/L Anion Gap mmol/L BUN (9-20) mg/dL Creatinine (0.66-1.25) mg/dL Est GFR (MDRD) Af Amer (>60 ml/min/1.73 sqM) Est GFR (MDRD) Non-Af (>60 ml/min/1.73 sqM) Glucose (74-99) mg/dL POC Glucose (mg/dL) 333 H (75-99) mg/dL POC Glu Ict Managers Margareth Becker Plasma Lactic Acid Sadi (0.7-2.0) mmol/L Calcium (8.4-10.2) mg/dL Magnesium (1.6-2.3) mg/dL Total Bilirubin (0.2-1.3) mg/dL AST (17-59) U/L ALT (21-72) U/L Alkaline Phosphatase (38-126) U/L Total Creatine Kinase (55-170) U/L CK-MB (CK-2) (0.0-2.4) ng/mL CK-MB (CK-2) Rel Index Troponin I (0.000-0.034) ng/mL NT-Pro-B Natriuret Pep pg/mL Total Protein (6.3-8.2) g/dL Albumin (3.5-5.0) g/dL Urine Color Yellow Urine Appearance Clear (Clear) Urine pH 5.5 (5.0-8.0) Ur Specific [place] 1.020 (1.001-1.035) Urine Protein 1+ H (Negative) Urine Glucose (UA) 4+ H (Negative) Urine Ketones Negative (Negative) Urine Blood Small H (Negative) Urine Nitrite Negative (Negative) Urine Bilirubin Negative (Negative) Urine Urobilinogen <2.0 (<2.0) mg/dL Ur Leukocyte Esterase Negative (Negative) Urine RBC 2 (0-5) /hpf Urine WBC 1 (0-5) /hpf Hyaline Casts 3 H (0-2) /lpf Urine Mucus Rare H (None) /hpf Acetone, Qual (Negative) Influenza Type A RNA (Not Detectd) Influenza Type B (PCR) (Not Detectd) Critical Care Time Critical Care Time: Yes Total Critical Care Time: 35 Disposition Clinical Impression: Pneumonia, Hypocalcemia, Hyperglycemia, Sepsis, Elevated troponin, Lactic acidosis Disposition: ADMITTED IP TO THIS HOSP Referrals: None,Stated [REFERRING] - 1-2 days Time of Disposition: 00:34
[2017-06-19] MEDS: SODIUM CHLORIDE 0.9% 500 ML IV SCH ×2 (22:26→23:26)
[2017-06-19 22:46] LABS: Basophils % (A) 0 %; Eosinophils % (A) 0 %; HCT 36.7 % (39.0-53.0); HGB 12.2 gm/dL (13.0-17.5); Lymphocytes # (A) 0.3 k/uL (1.0-4.8); Lymphocytes % (A) 4 %; MCH 32.7 pg (25.0-35.0); MCHC 33.2 g/dL (31.0-37.0); MCV 98.5 fL (80.0-100.0); Mean Platelet Volume 7.3; Monocytes # (A) 0.3 k/uL (0-1.0); Monocytes % (A) 3 %; Neutrophils # (A) 7.5 k/uL (1.3-7.7); Neutrophils % (A) 92 %; Platelet Count 139 k/uL (150-450); RBC 3.72 m/uL (4.30-5.90); RDW 15.2 % (11.5-15.5); WBC 8.1 k/uL (3.8-10.6)
--- NOTE | 2017-06-19 22:48 | XR ---
EXAMINATION TYPE: XR chest 2V DATE OF EXAM: 06/19/2017 COMPARISON: 10/16/2016 HISTORY: Asthma. Fever. TECHNIQUE: Frontal and lateral views of the chest are obtained. FINDINGS: There is some patchy consolidation in the right middle lobe. Left lung is clear. There is no heart failure. Thoracic aorta is atheromatous. There is slight blunting of right costophrenic angl e. There is probably some infiltrate in the right lower lobe as well. Bony thorax is intact. IMPRESSION: Right middle lobe and right lower lobe pneumonia appears new compared to old exam. Small right pleural effusion. No heart failure.
--- NOTE | 2017-06-19 22:50 | XR ---
EXAMINATION TYPE: XR ankle complete RT DATE OF EXAM: 06/19/2017 COMPARISON: NONE HISTORY: Pain TECHNIQUE: 3 views FINDINGS: There is some soft tissue swelling around the ankle joint. Ankle mortise is anatomic. There is vascular calcification. I see no fracture. IMPRESSION: Calcaneal spurring. Soft tissue swelling. No fracture seen.
--- NOTE | 2017-06-19 22:50 | XR ---
EXAMINATION TYPE: XR foot complete RT DATE OF EXAM: 06/19/2017 COMPARISON: NONE HISTORY: Pain TECHNIQUE: 3 views FINDINGS: There is a large plantar calcaneal spur. Metatarsals are intact. I see no fracture. There i s multiple mild hammertoe deformity. There is vascular calcification. IMPRESSION: No acute abnormality of the right foot.
[2017-06-19 22:52] LABS: Prothrombin Time 9.6 sec (9.0-12.0)
[2017-06-19 23:00] LABS: ALT 89 U/L (21-72); AST 30 U/L (17-59); Albumin 3.3 g/dL (3.5-5.0); Alkaline Phosphatase 167 U/L (38-126); Anion Gap 13 mmol/L; Blood Urea Nitrogen 23 mg/dL (9-20); Calcium 6.6 mg/dL (8.4-10.2); Carbon Dioxide 25 mmol/L (22-30); Chloride 95 mmol/L (98-107); Glucose 402 mg/dL (74-99); Potassium 3.9 mmol/L (3.5-5.1); Sodium 133 mmol/L (137-145); Total Bilirubin 0.6 mg/dL (0.2-1.3); Total Protein 5.4 g/dL (6.3-8.2)
[2017-06-19 23:16] LABS: Troponin I 0.047 ng/mL (0.000-0.034)
[2017-06-19 23:18] LABS: Appearance,Urine Clear (Clear); Bilirubin,Urine Negative (Negative); Blood,Urine Small (Negative); Color,Urine Yellow; Glucose,Urine (UA) 4+ (Negative); Hyaline Casts,Urine 3 /lpf (0-2); Ketones,Urine Negative (Negative); Leukocyte Esterase,Urine Negative (Negative); Mucus,Urine Rare /hpf; Nitrite,Urine Negative (Negative); PH, Urine 5.5 (5.0-8.0); Protein,Urine 1+ (Negative); RBC,Urine 2 /hpf (0-5); Urobilinogen,Urine <2.0 mg/dL (<2.0); WBC,Urine 1 /hpf (0-5)
[2017-06-19] MEDS ORDERED: INSULIN ASPART 100 UNIT/ML 1 ML 10 ML VIAL SQ ONE (23:39)
[2017-06-19] MEDS ORDERED: SODIUM CHLORIDE 0.9% 500 ML IV ONE (23:41)
[2017-06-19] MEDS ORDERED: SODIUM CHLORIDE 0.9% 1,000 ML IV ONE (23:41)
[2017-06-19] MEDS ORDERED: LEVOFLOXACIN 750MG-D5W PMX 750 MG in DEXTROSE/WATER 1 150ML.BAG IVPB STA (23:41)
[2017-06-19] MEDS ORDERED: PIPERACILLIN-TAZOBACTAM 3.375 GM in DEXTROSE/WATER 1 50ML.BAG IVPB STA (23:41)
[2017-06-19] MEDS ORDERED: CALCIUM CHLORIDE 100 MG/ML 10 ML SYRINGE IVP STA (23:44)
[2017-06-20 00:05] LABS: Glucose,Whole Blood 333 mg/dL (75-99)
[2017-06-20] MEDS ORDERED: PNEUMONIA PROTOCOL UTILIZED 1 EACH MISC PO PRN (00:36)
[2017-06-20] MEDS: PIPERACILLIN-TAZOBACTAM 3.375 GM in DEXTROSE/WATER 1 50ML.BAG IVPB SCH ×3 (03:30→20:00)
[2017-06-20] MEDS: oxyCODONE-APAP 10-325MG 1 EACH TAB PO PRN ×3 (05:07→16:49)
[2017-06-20 06:10] LABS: Glucose,Whole Blood 147 mg/dL (75-99)
[2017-06-20] MEDS: INSULIN ASPART 100 UNIT/ML 1 ML 10 ML VIAL SQ SCH ×3 (08:10→17:44)
[2017-06-20] MEDS: IPRATROPIUM-ALBUTEROL 3 ML NEB INHALATION SCH ×4 (09:24→19:54)
[2017-06-20] MEDS ORDERED: ALPRAZolam 0.25 MG TAB PO PRN (11:22)
[2017-06-20] MEDS ORDERED: NITROGLYCERIN SL TABS 0.4 MG TAB SUBLINGUAL PRN (11:22)
[2017-06-20] MEDS ORDERED: oxyCODONE-APAP 10-325MG 1 EACH TAB PO PRN (11:22)
[2017-06-20 11:43] LABS: Glucose,Whole Blood 135 mg/dL (75-99)
[2017-06-20 12:34] LABS: Glucose,Whole Blood 160 mg/dL (75-99)
[2017-06-20] MEDS ORDERED: IPRATROPIUM-ALBUTEROL 3 ML NEB INHALATION PRN (12:43)
--- NOTE | 2017-06-20 12:49 | P.CRDCN ---
History of Present Illness History of present illness: Patient admitted with shortness of breath and sharp chest discomfort. He is also to be confused than usual according to the family. Receiving chemotherapy for thyroid cancer Review of systems: No fever chills or rigors, + cough, no phlegm or expectoration, no nausea, vomiting or diarrhea, no hematuria, dysuria, no musculoskeletal complaints, no strokes or seizures, no skin lesions. Medication list was reviewed and as documented in the chart ALLERGIES to cephalosporins Past history of asthma CAD cancer COPD GERD dyslipidemia hypertension 12-lead ECG shows sinus rhythm no definite ST segment abdomen obese left atrial enlargement and LVH Labs are reviewed elevated lactic acid level, mildly abnormal troponins On examination Vitals are stable heart rate is in the normal range breath sounds are decreased bilaterally with some crackles at the bases heart sounds S1 and S2 are soft abdomen soft nontender no lower extremity edema impression Impression Shortness of breath and 80 the chest discomfort and borderline troponins Patient undergoing chemotherapy for thyroid cancer Known coronary artery disease Suggest medical management for now I will check a d-dimer and if elevated workup should proceed in that direction to assess for shortness of breath given his underlying neoplastic process Past Medical History Past Medical History: Asthma, Coronary Artery Disease (CAD), Cancer, COPD, GERD/ Reflux, Hyperlipidemia, Hypertension, Myocardial Infarction ([place]), Pneumonia, Skin Disorder, Thyroid Disorder, Vascular Disorder Additional Past Medical History / Comment(s): 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 , PT states no changes to his health hx since 11/23/16 except CVL procedure on 11/25/16. See Cardiology [facility] & [facility]. 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 Smoking Status: Former smoker Past Alcohol Use History: Occasional Additional Past Alcohol Use History / Comment(s): Pt started smoking in 1957 and quit in 1986. He used to drink more but not much drinking in the past 4-5 months. Past Drug Use History: None Reported - Past Family History Mother Family Medical History: Deep Vein Thrombosis (DVT) Additional Family Medical History / Comment(s): Mother was healthy and just shy of her 100th birthday. Father Family Medical History: Cancer Additional Family Medical History / Comment(s): Father of colon ca at the age of 85 yrs. Medications and Allergies Home Medications Medication Instructions Recorded Confirmed Type Aspirin 81 mg PO DAILY 06/25/14 06/20/17 History Finasteride [Proscar] 5 mg PO DAILY 06/25/14 06/20/17 History Levothyroxine Sodium [Synthroid] 175 mcg PO DAILY 06/25/14 06/20/17 History amLODIPine [Norvasc] 10 mg PO DAILY 06/25/14 06/20/17 History Montelukast [Singulair] 10 mg PO DAILY 06/26/16 06/20/17 History Nitroglycerin Sl Tabs [Nitrostat] 0.4 mg SUBLINGUAL Q5M PRN #100 tab 06/29/16 Rx Lisinopril [Zestril] 10 mg PO DAILY 09/15/16 06/20/17 History Gabapentin [Neurontin] 600 mg PO TID 11/23/16 06/20/17 History predniSONE 10 mg PO DAILY 11/23/16 06/20/17 History Isosorbide Mononitrate ER [Imdur] 30 mg PO DAILY #90 tab 11/25/16 06/20/17 Rx oxyCODONE-APAP 10-325MG [Percocet 2 tab PO Q4HR PRN MDD 1-2 tabs q 4 11/25/16 History 10-325 mg] hrs prn Atorvastatin [Lipitor] 40 mg PO DAILY #90 tab 12/10/16 06/20/17 Rx Clopidogrel [Plavix] 75 mg PO DAILY #90 tab 12/10/16 06/20/17 Rx ALPRAZolam [Xanax] 0.25 mg PO Q8H PRN 06/20/17 06/20/17 History Budesonide/Formoterol Fumarate 2 puff INHALATION RT-BID 06/20/17 06/20/17 History [Symbicort 80-4.5 Mcg Inhaler] Dexamethasone [Hexadrol] 4 mg PO BID 06/20/17 06/20/17 History Furosemide [Lasix] 10 mg PO BID@0800,1500 06/20/17 06/20/17 History Lenvatinib Mesylate [Lenvima] 20 mg PO DAILY 06/20/17 06/20/17 History Lenvima 4 Mg 4 mg PO DAILY 06/20/17 06/20/17 History Omeprazole 40 mg PO DAILY 06/20/17 06/20/17 History Pravastatin Sodium [Pravachol] 80 mg PO HS 06/20/17 06/20/17 History Allergies Allergy/AdvReac Type Severity Reaction Status Date / Time cefuroxime axetil Allergy Rash/Hives Verified 06/20/17 08:40 [From Ceftin] Physical Exam Vitals: Vital Signs Temp Pulse Pulse Resp BP BP Pulse Ox 06/20/17 12:39 100 06/20/17 12:23 91 L 06/20/17 09:42 94 06/20/17 09:28 90 96 06/20/17 08:00 98.3 F 100 20 105/65 89 L 06/20/17 05:52 98.4 F 06/20/17 04:00 99.2 F 57 L 20 145/67 92 L 06/20/17 03:37 101.3 F H 95 20 162/82 99 06/20/17 03:00 99.3 F 06/20/17 00:14 102.3 F H 110 H 20 167/80 95 06/19/17 23:20 93 20 148/78 95 06/19/17 22:33 93 18 179/98 95 06/19/17 22:01 103.1 F H 104 H 20 185/91 93 L Intake and Output 06/19/17 06/20/17 06/20/17 22:59 06:59 14:59 Intake Total 60 Balance 60 Intake: Oral 60 Other: Voiding Method Urinal Urinal Weight 77.111 kg 89 kg Results 06/19/17 22:27 06/19/17 22:27 Cardiac Enzymes 06/19/17 06/19/17 06/20/17 Range/Units 22:27 22:27 10:14 AST 30 (17-59) U/L CK-MB (CK-2) 4.0 H* (0.0-2.4) ng/mL Troponin I 0.047 H* 0.262 H* (0.000-0.034) ng/mL Coagulation 06/19/17 Range/Units 22:27 PT 9.6 (9.0-12.0) sec APTT 20.0 L (22.0-30.0) sec CBC 06/19/17 Range/Units 22:27 WBC 8.1 (3.8-10.6) k/uL RBC 3.72 L (4.30-5.90) m/uL Hgb 12.2 L (13.0-17.5) gm/dL Hct 36.7 L (39.0-53.0) % Plt Count 139 L (150-450) k/uL Comprehensive Metabolic Panel 06/19/17 Range/Units 22:27 Sodium 133 L (137-145) mmol/L Potassium 3.9 (3.5-5.1) mmol/L Chloride 95 L (98-107) mmol/L Carbon Dioxide 25 (22-30) mmol/L BUN 23 H (9-20) mg/dL Creatinine 0.70 (0.66-1.25) mg/dL Glucose 402 H (74-99) mg/dL Calcium 6.6 L (8.4-10.2) mg/dL AST 30 (17-59) U/L ALT 89 H (21-72) U/L Alkaline Phosphatase 167 H (38-126) U/L Total Protein 5.4 L (6.3-8.2) g/dL Albumin 3.3 L (3.5-5.0) g/dL Current Medications Generic Name Dose Route Start Last Admin Trade Name Freq PRN Reason Stop Dose Admin Albuterol/Ipratropium 3 ml 06/20/17 08:00 06/20/17 12:32 Duoneb 0.5 Mg-3 Mg/3 Ml Soln INHALATION 3 ml RT-QID JOE Administration Albuterol/Ipratropium 3 ml 06/20/17 12:43 Duoneb 0.5 Mg-3 Mg/3 Ml Soln INHALATION RT-Q2H PRN Shortness Of Breath Or Wheezing Alprazolam 0.25 mg 06/20/17 11:22 06/20/17 12:33 Xanax PO 0.25 mg Q8H PRN Administration Anxiety Amlodipine Besylate 10 mg 06/21/17 09:00 Norvasc PO DAILY [facility] Aspirin 81 mg 06/21/17 09:00 Aspirin PO DAILY [facility] Atorvastatin Calcium 40 mg 06/21/17 09:00 Lipitor PO DAILY [facility] Budesonide 1 mg 06/20/17 20:00 Pulmicort INHALATION RT-BID [facility] Clopidogrel Bisulfate 75 mg 06/21/17 09:00 Plavix PO DAILY [facility] Finasteride 5 mg 06/21/17 09:00 Proscar PO DAILY [facility] Formoterol Fumarate 20 mcg 06/20/17 20:00 Perforomist INHALATION RT-BID [facility] Furosemide 10 mg 06/20/17 15:00 Lasix PO BID@0800,1500 [facility] Gabapentin 600 mg 06/20/17 16:00 Neurontin PO TID [facility] Levofloxacin 750 mg/ IV 150 mls @ 100 mls/hr 06/20/17 23:00 Solution IVPB Q24H [facility] Piperacillin/Tazobactam/ 50 mls @ 12.5 mls/hr 06/20/17 03:00 06/20/17 11:10 Dextrose 3.375 gm/ IV Solution IVPB 12.5 mls/hr Q8H [facility] Administration Insulin Aspart 0 unit 06/20/17 07:30 06/20/17 12:29 Novolog SQ Not Given ACHS [facility] Protocol Isosorbide Mononitrate 30 mg 06/21/17 09:00 Imdur PO DAILY [facility] Levothyroxine Sodium 100 mcg 06/21/17 06:30 Synthroid PO 0630 [facility] Levothyroxine Sodium 75 mcg 06/21/17 06:30 Synthroid PO 0630 [facility] Lisinopril 10 mg 06/21/17 09:00 Zestril PO DAILY [facility] Methylprednisolone Sodium Succinate 40 mg 06/20/17 12:45 Solu-Medrol IV Q6HR [facility] Miscellaneous Information 1 each 06/20/17 00:36 Pneumonia Protocol Utilized PO ONCE PRN Per Protocol Montelukast Sodium 10 mg 06/21/17 09:00 Singulair PO DAILY [facility] Nitroglycerin 0.4 mg 06/20/17 11:22 Nitrostat SUBLINGUAL Q5M PRN Chest Pain Non-Formulary Medication 20 mg 06/21/17 09:00 Lenvatinib Mesylate [Lenvima] PO DAILY [facility] Non-Formulary Medication 4 mg 06/21/17 09:00 Lenvima 4 Mg PO DAILY JOE Oxycodone/Acetaminophen 2 each 06/20/17 04:36 06/20/17 11:12 Percocet 10-325 PO 2 each Q4HR PRN Administration Pain Pantoprazole Sodium 40 mg 06/21/17 09:00 Protonix PO DAILY [facility] Pravastatin Sodium 80 mg 06/20/17 21:00 Pravachol PO HS JOE Intake and Output 06/19/17 06/20/17 06/20/17 22:59 06:59 14:59 Intake Total 60 Balance 60 Intake: Oral 60 Other: Voiding Method Urinal Urinal Weight 77.111 kg 89 kg 06/19/17 22:27 06/19/17 22:27
[2017-06-20] MEDS: methylPREDNISolone SOD SUCCI 40 MG/ML 1 ML VIAL IV SCH ×2 (13:54→17:44)
--- NOTE | 2017-06-20 14:06 | P.CNPUL ---
History of Present Illness Consult date: 06/20/17 Reason for consult: dyspnea, cough, COPD, pneumonia, abnormal CXR/CT Chief complaint: Shortness of breath, fever/chest congestion History of present illness: Consult dated 06/20/2017 This is a 76-year-old male with a significant medical history for thyroid cancer. The patient is receiving chemotherapy for that malignancy. His cancer doctor is Dr. Tomlin. The patient is not a particularly good historian but what I gather as over the last couple of days or so maybe a bit longer, he's been having issues with his breathing. He's had some chest congestion and cough. Producing some phlegm. Also some shakes. In addition he has some sharp chest pain. The patient was seen in the emergency room and admitted mid with a diagnosis of possible right lower lobe pneumonia. Again most of the history is obtained from the and the son who was in the room with him. Apparently the patient sees my partner as his primary doctor as well as his lung doctor. He apparently does have a history of underlying COPD. In addition to COPD, the patient has a history of CAD gastroesophageal reflux disease hyperlipidemia hypertension myocardial infarction a previous episode of pneumonia thyroid cancer and peripheral artery disease. The patient's thyroid cancer is metastatic to L5-S1 where he has received radiation treatment. The patient wishes to BE a no code and we entered reveals orders into the chart. In addition, I add some updrafts in the form of DuoNeb 4 times a day and when necessary as well as Perforomist and Pulmicort 1 mg twice a day. Finally, the patient had a recent reduction in his steroids and at that time, his respiratory status seemed to deteriorate a bit according to his family. The patient will be given Solu-Medrol in place of his small dose of oral prednisone to see if we can improve his overall lung function. Review of Systems The patient is a very poor historian but a 12 point review of system is positive for shortness of breath chest congestion cough fever minimal phlegm production and confusion. In addition he has some chest pain as well. 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 , PT states no changes to his health hx since 11/23/16 except CVL procedure on 11/25/16. See Cardiology [facility]. 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 Smoking Status: Former smoker Past Alcohol Use History: Occasional Additional Past Alcohol Use History / Comment(s): Pt started smoking in 1956 and quit in 1986. He used to drink more but not much drinking in the past 4-5 months. Past Drug Use History: None Reported - Past Family History Mother Family Medical History: Deep Vein Thrombosis (DVT) Additional Family Medical History / Comment(s): Mother was healthy and just shy of her 100th birthday. Father Family Medical History: Cancer Additional Family Medical History / Comment(s): Father of colon ca at the age of 85 yrs. Medications and Allergies Home Medications Medication Instructions Recorded Confirmed Type Aspirin 81 mg PO DAILY 06/25/14 06/20/17 History Finasteride [Proscar] 5 mg PO DAILY 06/25/14 06/20/17 History Levothyroxine Sodium [Synthroid] 175 mcg PO DAILY 06/25/14 06/20/17 History amLODIPine [Norvasc] 10 mg PO DAILY 06/25/14 06/20/17 History Montelukast [Singulair] 10 mg PO DAILY 06/26/16 06/20/17 History Nitroglycerin Sl Tabs [Nitrostat] 0.4 mg SUBLINGUAL Q5M PRN #100 tab 06/29/16 Rx Lisinopril [Zestril] 10 mg PO DAILY 09/15/16 06/20/17 History Gabapentin [Neurontin] 600 mg PO TID 11/23/16 06/20/17 History predniSONE 10 mg PO DAILY 11/23/16 06/20/17 History Isosorbide Mononitrate ER [Imdur] 30 mg PO DAILY #90 tab 11/25/16 06/20/17 Rx oxyCODONE-APAP 10-325MG [Percocet 2 tab PO Q4HR PRN MDD 1-2 tabs q 4 11/25/16 History 10-325 mg] hrs prn Atorvastatin [Lipitor] 40 mg PO DAILY #90 tab 12/10/16 06/20/17 Rx Clopidogrel [Plavix] 75 mg PO DAILY #90 tab 12/10/16 06/20/17 Rx ALPRAZolam [Xanax] 0.25 mg PO Q8H PRN 06/20/17 06/20/17 History Budesonide/Formoterol Fumarate 2 puff INHALATION RT-BID 06/20/17 06/20/17 History [Symbicort 80-4.5 Mcg Inhaler] Dexamethasone [Hexadrol] 4 mg PO BID 06/20/17 06/20/17 History Furosemide [Lasix] 10 mg PO BID@0800,1500 06/20/17 06/20/17 History Lenvatinib Mesylate [Lenvima] 20 mg PO DAILY 06/20/17 06/20/17 History Lenvima 4 Mg 4 mg PO DAILY 06/20/17 06/20/17 History Omeprazole 40 mg PO DAILY 06/20/17 06/20/17 History Pravastatin Sodium [Pravachol] 80 mg PO HS 06/20/17 06/20/17 History Allergies Allergy/AdvReac Type Severity Reaction Status Date / Time cefuroxime axetil Allergy Rash/Hives Verified 06/20/17 08:40 [From Ceftin] Physical Exam Osteopathic Statement: *. No significant issues noted on an osteopathic structural exam other than those noted in the History and Physical/Consult. Vitals: Vital Signs Temp Pulse Pulse Resp BP BP Pulse Ox 06/20/17 12:50 104 H 06/20/17 12:39 100 06/20/17 12:23 91 L 06/20/17 12:00 99.0 F 100 20 114/55 95 06/20/17 09:42 94 06/20/17 09:28 90 96 06/20/17 08:00 98.3 F 100 20 105/65 89 L 06/20/17 05:52 98.4 F 06/20/17 04:00 99.2 F 57 L 20 145/67 92 L 06/20/17 03:37 101.3 F H 95 20 162/82 99 06/20/17 03:00 99.3 F 06/20/17 00:14 102.3 F H 110 H 20 167/80 95 06/19/17 23:20 93 20 148/78 95 06/19/17 22:33 93 18 179/98 95 06/19/17 22:01 103.1 F H 104 H 20 185/91 93 L Intake and Output 06/19/17 06/20/17 06/20/17 22:59 06:59 14:59 Intake Total 60 Balance 60 Intake: Oral 60 Other: Voiding Method Urinal Urinal Weight 77.111 kg 89 kg No acute distress. The patient is very confused and not really sure what brought him into the hospital. HEENT examination is grossly unremarkable. Mucous membranes are moist. No oral lesions. Neck supple. Full range of motion. No adenopathy thyromegaly or neck vein distention. Cardiovascular examination reveals regular rhythm rate. S1-S2 normal. No S3 or S4. No discernible murmur noted. Lungs reveal scattered rhonchi. Breath sounds equal. He doesn't really take deep breaths. A few scattered crackles. No wheezes. Breath sounds are equal bilaterally. Abdomen soft bowel sounds are heard. No masses or tenderness. Extremities are intact. No cyanosis clubbing or edema. Skin is without rash or lesion. Neurologic examination is difficult to perform but he does move all 4 extremities. Results - Laboratory Findings CBC and BMP: 06/19/17 22:27 06/19/17 22:27 PT/INR, D-dimer PT 9.6 sec (9.0-12.0) 06/19/17 22:27 INR 1.0 (<1.2) 06/19/17 22:27 D-Dimer 2.76 mg/L FEU (<0.60) H 06/20/17 13:03 Abnormal lab findings: Abnormal Labs 06/19/17 06/19/17 06/19/17 22:07 22:27 22:27 RBC 3.72 L Hgb 12.2 L Hct 36.7 L Plt Count 139 L Lymphocytes # 0.3 L APTT D-Dimer Sodium Chloride BUN Glucose POC Glucose (mg/dL) 439 H Plasma Lactic Acid Sadi Calcium ALT Alkaline Phosphatase Total Creatine Kinase 215 H CK-MB (CK-2) 4.0 H* Troponin I 0.047 H* Total Protein Albumin Urine Protein Urine Glucose (UA) Urine Blood Hyaline Casts Urine Mucus 06/19/17 06/19/17 06/19/17 22:27 22:27 22:27 RBC Hgb Hct Plt Count Lymphocytes # APTT 20.0 L D-Dimer Sodium 133 L Chloride 95 L BUN 23 H Glucose 402 H POC Glucose (mg/dL) Plasma Lactic Acid Sadi 5.0 H* Calcium 6.6 L ALT 89 H Alkaline Phosphatase 167 H Total Creatine Kinase CK-MB (CK-2) Troponin I Total Protein 5.4 L Albumin 3.3 L Urine Protein Urine Glucose (UA) Urine Blood Hyaline Casts Urine Mucus 06/19/17 06/20/17 06/20/17 23:00 00:03 02:40 RBC Hgb Hct Plt Count Lymphocytes # APTT D-Dimer Sodium Chloride BUN Glucose POC Glucose (mg/dL) 333 H Plasma Lactic Acid Sadi 4.5 H* Calcium ALT Alkaline Phosphatase Total Creatine Kinase CK-MB (CK-2) Troponin I Total Protein Albumin Urine Protein 1+ H Urine Glucose (UA) 4+ H Urine Blood Small H Hyaline Casts 3 H Urine Mucus Rare H 06/20/17 06/20/17 06/20/17 06:08 07:47 10:14 RBC Hgb Hct Plt Count Lymphocytes # APTT D-Dimer Sodium Chloride BUN Glucose POC Glucose (mg/dL) 147 H Plasma Lactic Acid Sadi 3.2 H* Calcium ALT Alkaline Phosphatase Total Creatine Kinase CK-MB (CK-2) Troponin I 0.262 H* Total Protein Albumin Urine Protein Urine Glucose (UA) Urine Blood Hyaline Casts Urine Mucus 06/20/17 06/20/17 06/20/17 11:27 11:38 11:43 RBC Hgb Hct Plt Count Lymphocytes # APTT D-Dimer Sodium Chloride BUN Glucose POC Glucose (mg/dL) 135 H 160 H Plasma Lactic Acid Sadi 4.0 H* Calcium ALT Alkaline Phosphatase Total Creatine Kinase CK-MB (CK-2) Troponin I Total Protein Albumin Urine Protein Urine Glucose (UA) Urine Blood Hyaline Casts Urine Mucus 06/20/17 13:03 RBC Hgb Hct Plt Count Lymphocytes # APTT D-Dimer 2.76 H Sodium Chloride BUN Glucose POC Glucose (mg/dL) Plasma Lactic Acid Sadi Calcium ALT Alkaline Phosphatase Total Creatine Kinase CK-MB (CK-2) Troponin I Total Protein Albumin Urine Protein Urine Glucose (UA) Urine Blood Hyaline Casts Urine Mucus - Diagnostic Findings Chest x-ray: image reviewed (Labs x-rays a medications are all reviewed. Chest x-ray does reveal a right lower lobe infiltrate.) Assessment and Plan Assessment: Assessment COPD exacerbation complicated by right lower lobe pneumonia Thyroid cancer metastatic to spine Gastroesophageal reflux disease Myocardial infarction Hypertension Hyperlipidemia History of melanoma Previous history of stent placement for CAD Plan: Plan dated 06/20/2017 The patients medications x-rays and labs are all reviewed. I did add DuoNeb 4 times a day and when necessary. In addition, the patient received additional breathing treatment as well as corticosteroids. We bumped to Solu-Medrol up to 40 mg every 6. He was previously on a smaller dose of prednisone. We'll make sure he is on some antibiotics as well. Additional recommendations and suggestions are forthcoming. The patient does wish to BE a no code. Time with Patient: Greater than 30
[2017-06-20] MEDS ORDERED: SODIUM CHLORIDE 0.9% 1,000 ML IV ONE (15:49)
[2017-06-20 16:35] LABS: Glucose,Whole Blood 182 mg/dL (75-99)
[2017-06-20] MEDS: GABAPENTIN 300 MG CAP PO SCH (16:38)
[2017-06-20] MEDS: FUROSEMIDE 10 MG TAB PO SCH (16:39)
[2017-06-20 19:46] LABS: Hemoglobin A1C 8.1 % (4.0-6.0)
[2017-06-20] MEDS: FORMOTEROL FUMARATE 20 MCG/2 ML NEBU INHALATION SCH (19:54)
[2017-06-20] MEDS: BUDESONIDE 1 MG/2 ML NEBU INHALATION SCH (19:54)
[2017-06-20] MEDS ORDERED: SYMBICORT 80-4.5 MCG INHALER INHALATION SCH (20:00)
[2017-06-20] MEDS ORDERED: PRAVASTATIN SODIUM 80 MG TAB PO SCH (21:00)
[2017-06-20] MEDS ORDERED: DEXAMETHASONE 4 MG TAB PO SCH (21:00)
[2017-06-20 21:04] LABS: Glucose,Whole Blood 143 mg/dL (75-99)
--- NOTE | 2017-06-20 21:59 | P.HPIM ---
History of Present Illness H&P Date: 06/20/17 Chief Complaint: shortness of breath atient is a 76-year-old malewith a known history of thyroid cancer currently receiving chemotherapy, CAD gastroesophageal reflux disease hyperlipidemia hypertension myocardial infarction a previous episode of pneumonia thyroid cancer and peripheral artery disease. The patient's thyroid cancer is metastatic to L5-S1 where he has received radiation treatment. came to ER with the c/o shortness of breathstarted afterdinner last night. Patient also complasharp chest pain. Patient became very delirious and seems to be more confused than. Patient was brought to the hospital for furthe Patient otherwise has been having cough without much sputum production. Patient denies any abdominal pain patient denies nausea vomiting diarrhea. Patient denies any rashes. Patient does complain of right ankle and foot pain he states he injured about 2 weeks ago but no one checked out. Patient denies any dysuria hematuria urinary frequency. Patient denies any flu shot this year. complete review of systems could not be obtained from the patient except as above. 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 , PT states no changes to his health hx since 11/23/16 except CVL procedure on 11/25/16. See Cardiology H & P. 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 Smoking Status: Former smoker Past Alcohol Use History: Occasional Additional Past Alcohol Use History / Comment(s): Pt started smoking in 7 and quit in 1986. He used to drink more but not much drinking in the past 4-5 months. Past Drug Use History: None Reported - Past Family History Mother Family Medical History: Deep Vein Thrombosis (DVT) Additional Family Medical History / Comment(s): Mother was healthy and just shy of her 100th birthday. Father Family Medical History: Cancer Additional Family Medical History / Comment(s): Father of colon ca at the age of 85 yrs. Medications and Allergies Home Medications Medication Instructions Recorded Confirmed Type Aspirin 81 mg PO DAILY 06/25/14 06/20/17 History Finasteride [Proscar] 5 mg PO DAILY 06/25/14 06/20/17 History Levothyroxine Sodium [Synthroid] 175 mcg PO DAILY 06/25/14 06/20/17 History amLODIPine [Norvasc] 10 mg PO DAILY 06/25/14 06/20/17 History Montelukast [Singulair] 10 mg PO DAILY 06/26/16 06/20/17 History Nitroglycerin Sl Tabs [Nitrostat] 0.4 mg SUBLINGUAL Q5M PRN #100 tab 06/29/16 Rx Lisinopril [Zestril] 10 mg PO DAILY 09/15/16 06/20/17 History Gabapentin [Neurontin] 600 mg PO TID 11/23/16 06/20/17 History predniSONE 10 mg PO DAILY 11/23/16 06/20/17 History Isosorbide Mononitrate ER [Imdur] 30 mg PO DAILY #90 tab 11/25/16 06/20/17 Rx oxyCODONE-APAP 10-325MG [Percocet 2 tab PO Q4HR PRN MDD 1-2 tabs q 4 11/25/16 History 10-325 mg] hrs prn Atorvastatin [Lipitor] 40 mg PO DAILY #90 tab 12/10/16 06/20/17 Rx Clopidogrel [Plavix] 75 mg PO DAILY #90 tab 12/10/16 06/20/17 Rx ALPRAZolam [Xanax] 0.25 mg PO Q8H PRN 06/20/17 06/20/17 History Budesonide/Formoterol Fumarate 2 puff INHALATION RT-BID 06/20/17 06/20/17 History [Symbicort 80-4.5 Mcg Inhaler] Dexamethasone [Hexadrol] 4 mg PO BID 06/20/17 06/20/17 History Furosemide [Lasix] 10 mg PO BID@0800,1500 06/20/17 06/20/17 History Lenvatinib Mesylate [Lenvima] 20 mg PO DAILY 06/20/17 06/20/17 History Lenvima 4 Mg 4 mg PO DAILY 06/20/17 06/20/17 History Omeprazole 40 mg PO DAILY 06/20/17 06/20/17 History Pravastatin Sodium [Pravachol] 80 mg PO HS 06/20/17 06/20/17 History Allergies Allergy/AdvReac Type Severity Reaction Status Date / Time cefuroxime axetil Allergy Rash/Hives Verified 06/20/17 08:40 [From Ceftin] Physical Exam Vitals: Vital Signs Temp Pulse Pulse Resp BP BP Pulse Ox 06/20/17 12:50 104 H 06/20/17 12:39 100 06/20/17 12:23 91 L 06/20/17 12:00 99.0 F 100 20 114/55 95 06/20/17 09:42 94 06/20/17 09:28 90 96 06/20/17 08:00 98.3 F 100 20 105/65 89 L 06/20/17 05:52 98.4 F 06/20/17 04:00 99.2 F 57 L 20 145/67 92 L 06/20/17 03:37 101.3 F H 95 20 162/82 99 06/20/17 03:00 99.3 F 06/20/17 00:14 102.3 F H 110 H 20 167/80 95 06/19/17 23:20 93 20 148/78 95 06/19/17 22:33 93 18 179/98 95 06/19/17 22:01 103.1 F H 104 H 20 185/91 93 L Intake and Output 06/19/17 06/20/17 06/20/17 22:59 06:59 14:59 Intake Total 160 Balance 160 Intake: Oral 160 Other: Voiding Method Urinal Urinal Weight 77.111 kg 89 kg PHYSICAL EXAMINATION: Patient is lying in the bed comfortably, wake alert and appears to be mild distress due to shortness of breath Patient is very confused HEENT: Normocephalic. Neck is supple. Pupils reactive. Nostrils clear. Oral cavity is moist. Ears reveal no drainage. Neck reveals no JVD, carotid bruits, or thyromegaly. CHEST EXAMINATION: Trachea is central. Symmetrical expansion. biLilateral diminished breath sounds and rhonchi positive CARDIAC: Normal S1, S2 with no gallops. No murmurs ABDOMEN: Soft. Bowel sounds normal. No organomegaly. No abdominal bruits. Extremities: bilateral2+ pedal edema. No clubbing Discoloration of toes. Neurologically awake, alert but confused. well-coordinated movements. No focal deficits noted Skin: No rash or skin lesions. Psychiatric: Cooperative. Nonsuicidal Musculoskeletal: No joint swelling or deformity. Normal range of motion. Results CBC & Chem 7: 06/19/17 22:27 06/19/17 22:27 Labs: Abnormal Lab Results - Last 24 Hours (Table) 06/19/17 06/19/17 06/19/17 Range/Units 22:07 22:27 22:27 RBC 3.72 L (4.30-5.90) m/uL Hgb 12.2 L (13.0-17.5) gm/dL Hct 36.7 L (39.0-53.0) % Plt Count 139 L (150-450) k/uL Lymphocytes # 0.3 L (1.0-4.8) k/uL APTT (22.0-30.0) sec D-Dimer (<0.60) mg/L FEU Sodium (137-145) mmol/L Chloride (98-107) mmol/L BUN (9-20) mg/dL Glucose (74-99) mg/dL POC Glucose (mg/dL) 439 H (75-99) mg/dL Plasma Lactic Acid Sadi (0.7-2.0) mmol/L Calcium (8.4-10.2) mg/dL ALT (21-72) U/L Alkaline Phosphatase (38-126) U/L Total Creatine Kinase 215 H (55-170) U/L CK-MB (CK-2) 4.0 H* (0.0-2.4) ng/mL Troponin I 0.047 H* (0.000-0.034) ng/mL Total Protein (6.3-8.2) g/dL Albumin (3.5-5.0) g/dL Urine Protein (Negative) Urine Glucose (UA) (Negative) Urine Blood (Negative) Hyaline Casts (0-2) /lpf Urine Mucus (None) /hpf 06/19/17 06/19/17 06/19/17 Range/Units 22:27 22:27 22:27 RBC (4.30-5.90) m/uL Hgb (13.0-17.5) gm/dL Hct (39.0-53.0) % Plt Count (150-450) k/uL Lymphocytes # (1.0-4.8) k/uL APTT 20.0 L (22.0-30.0) sec D-Dimer (<0.60) mg/L FEU Sodium 133 L (137-145) mmol/L Chloride 95 L (98-107) mmol/L BUN 23 H (9-20) mg/dL Glucose 402 H (74-99) mg/dL POC Glucose (mg/dL) (75-99) mg/dL Plasma Lactic Acid Sadi 5.0 H* (0.7-2.0) mmol/L Calcium 6.6 L (8.4-10.2) mg/dL ALT 89 H (21-72) U/L Alkaline Phosphatase 167 H (38-126) U/L Total Creatine Kinase (55-170) U/L CK-MB (CK-2) (0.0-2.4) ng/mL Troponin I (0.000-0.034) ng/mL Total Protein 5.4 L (6.3-8.2) g/dL Albumin 3.3 L (3.5-5.0) g/dL Urine Protein (Negative) Urine Glucose (UA) (Negative) Urine Blood (Negative) Hyaline Casts (0-2) /lpf Urine Mucus (None) /hpf 06/19/17 06/20/17 06/20/17 Range/Units 23:00 00:03 02:40 RBC (4.30-5.90) m/uL Hgb (13.0-17.5) gm/dL Hct (39.0-53.0) % Plt Count (150-450) k/uL Lymphocytes # (1.0-4.8) k/uL APTT (22.0-30.0) sec D-Dimer (<0.60) mg/L FEU Sodium (137-145) mmol/L Chloride (98-107) mmol/L BUN (9-20) mg/dL Glucose (74-99) mg/dL POC Glucose (mg/dL) 333 H (75-99) mg/dL Plasma Lactic Acid Sadi 4.5 H* (0.7-2.0) mmol/L Calcium (8.4-10.2) mg/dL ALT (21-72) U/L Alkaline Phosphatase (38-126) U/L Total Creatine Kinase (55-170) U/L CK-MB (CK-2) (0.0-2.4) ng/mL Troponin I (0.000-0.034) ng/mL Total Protein (6.3-8.2) g/dL Albumin (3.5-5.0) g/dL Urine Protein 1+ H (Negative) Urine Glucose (UA) 4+ H (Negative) Urine Blood Small H (Negative) Hyaline Casts 3 H (0-2) /lpf Urine Mucus Rare H (None) /hpf 06/20/17 06/20/17 06/20/17 Range/Units 06:08 07:47 10:14 RBC (4.30-5.90) m/uL Hgb (13.0-17.5) gm/dL Hct (39.0-53.0) % Plt Count (150-450) k/uL Lymphocytes # (1.0-4.8) k/uL APTT (22.0-30.0) sec D-Dimer (<0.60) mg/L FEU Sodium (137-145) mmol/L Chloride (98-107) mmol/L BUN (9-20) mg/dL Glucose (74-99) mg/dL POC Glucose (mg/dL) 147 H (75-99) mg/dL Plasma Lactic Acid Sadi 3.2 H* (0.7-2.0) mmol/L Calcium (8.4-10.2) mg/dL ALT (21-72) U/L Alkaline Phosphatase (38-126) U/L Total Creatine Kinase (55-170) U/L CK-MB (CK-2) (0.0-2.4) ng/mL Troponin I 0.262 H* (0.000-0.034) ng/mL Total Protein (6.3-8.2) g/dL Albumin (3.5-5.0) g/dL Urine Protein (Negative) Urine Glucose (UA) (Negative) Urine Blood (Negative) Hyaline Casts (0-2) /lpf Urine Mucus (None) /hpf 06/20/17 06/20/17 06/20/17 Range/Units 11:27 11:38 11:43 RBC (4.30-5.90) m/uL Hgb (13.0-17.5) gm/dL Hct (39.0-53.0) % Plt Count (150-450) k/uL Lymphocytes # (1.0-4.8) k/uL APTT (22.0-30.0) sec D-Dimer (<0.60) mg/L FEU Sodium (137-145) mmol/L Chloride (98-107) mmol/L BUN (9-20) mg/dL Glucose (74-99) mg/dL POC Glucose (mg/dL) 135 H 160 H (75-99) mg/dL Plasma Lactic Acid Sadi 4.0 H* (0.7-2.0) mmol/L Calcium (8.4-10.2) mg/dL ALT (21-72) U/L Alkaline Phosphatase (38-126) U/L Total Creatine Kinase (55-170) U/L CK-MB (CK-2) (0.0-2.4) ng/mL Troponin I (0.000-0.034) ng/mL Total Protein (6.3-8.2) g/dL Albumin (3.5-5.0) g/dL Urine Protein (Negative) Urine Glucose (UA) (Negative) Urine Blood (Negative) Hyaline Casts (0-2) /lpf Urine Mucus (None) /hpf 06/20/17 Range/Units 13:03 RBC (4.30-5.90) m/uL Hgb (13.0-17.5) gm/dL Hct (39.0-53.0) % Plt Count (150-450) k/uL Lymphocytes # (1.0-4.8) k/uL APTT (22.0-30.0) sec D-Dimer 2.76 H (<0.60) mg/L FEU Sodium (137-145) mmol/L Chloride (98-107) mmol/L BUN (9-20) mg/dL Glucose (74-99) mg/dL POC Glucose (mg/dL) (75-99) mg/dL Plasma Lactic Acid Sadi (0.7-2.0) mmol/L Calcium (8.4-10.2) mg/dL ALT (21-72) U/L Alkaline Phosphatase (38-126) U/L Total Creatine Kinase (55-170) U/L CK-MB (CK-2) (0.0-2.4) ng/mL Troponin I (0.000-0.034) ng/mL Total Protein (6.3-8.2) g/dL Albumin (3.5-5.0) g/dL Urine Protein (Negative) Urine Glucose (UA) (Negative) Urine Blood (Negative) Hyaline Casts (0-2) /lpf Urine Mucus (None) /hpf Microbiology - Last 24 Hours (Table) 06/19/17 23:00 Urine Culture - Preliminary Urine,Voided Thrombosis Risk Factor Assmnt - DVT/VTE Prophylaxis DVT/VTE Prophylaxis: Pharmacologic Prophylaxis ordered - Choose All That Apply Each Risk Factor Represents 3 Points: Age 75 years or older Thrombosis Risk Factor Assessment Total Risk Factor Score: 3 Thrombosis Risk Factor Assessment Level: Moderate Risk Assessment and Plan Assessment: shortness of breath secondary to right lower lobe pneumonias well as COPD Sepsis secondary to pneumonia acute COPD exacerbationlikely due to pneumonia elevated troponin level likely due to demand mismatch. hypovolemic hyponatremia Elevated liver enzymes metastatic thyroid cancer currently undergoing chemotherapy history of coronary artery disease status post stent placement hypertension Hyperlipidemia history of ND GERD dVT prophylaxis dO NOT RESUSCITATE/ DO NOT INTUBATE plan: patient will be continued onantibiotics in the form of Zosyn and Levaquin Continue withe Solu-Medrol and breathing treatments and follow. Cardiology and pulmonary is followng. atient was given fluid boluses for lactic acidosisand will continue to monitor closely.further recommendations based on the clinical course.prognosis ispoor Time with Patient: Greater than 30
[2017-06-20] MEDS ORDERED: LEVOFLOXACIN 750MG-D5W PMX 750 MG in DEXTROSE/WATER 1 150ML.BAG IVPB SCH (23:00)
[2017-06-21] MEDS: GABAPENTIN 300 MG CAP PO SCH ×3 (02:36→19:40)
[2017-06-21] MEDS: INSULIN ASPART 100 UNIT/ML 1 ML 10 ML VIAL SQ SCH ×4 (02:37→19:40)
--- NOTE | 2017-06-21 05:20 | CONS ---
CONSULTATION DATE OF SERVICE: 06/20/2017 REASON FOR CONSULTATION: Metastatic thyroid cancer. CHIEF COMPLAINT: Short of breath. Sp is a very pleasant 76 years old gentleman known to our practice. He has been under the care of Dr. Tomlin. The patient was initially diagnosed with follicular thyroid cancer in 2003. He had a total thyroidectomy by Dr. Hogan at [facility] and he was given radioactive iodine at that time. He did well until 2013 when he presented with progressive lower back pain and he did have x- ray and MRI of his spine revealing a 4.4 cm destructive mass at L5. He had a CT-guided biopsy which was consistent with metastatic follicular carcinoma. The patient received palliative radiation therapy to it. The patient has also went to different cancer centers. He went to [facility] and then he went to [facility] and because the pain persisted in his back I believe he received another course of radioactive iodine in [facility] and then subsequently he did receive radiosurgery to L5 and L3 at [facility] followed by further radioactive iodine therapy in 2015. He continued to have progressive back pain and he went back again to [facility] and he did have a repeat MRI of his spine in April 2017 at [facility], which revealed increasing soft tissue component extending into L5-S1 neural foramina. He was re-evaluated by Dr. Tomlin and since he previously had radiation therapy. Radiation therapy was not considered an option and also because of his advanced age and poor performance status he was evaluated by a neurosurgeon and back surgery also at the [facility] and felt not to be a surgical candidate. He was started on steroid in order to relieve his back pain and he had some partial improvement to it and then subsequently he was started on oral lenvatinib about 2 weeks ago. However, he came into the emergency department with progressive significant weakness, tired, short of breath and with some confusion. He was admitted to the hospital. He had a chest x-ray which revealed possible right lower lobe pneumonia and he was a has been seen by Cardiology and also Pulmonary and is being treated for a acute exacerbation of COPD and pneumonia. The patient is somewhat poor historian and he does appear to be very frail and cachectic. He appeared to be frail and very tired. However, he does answer questions appropriately and his family are present at bedside and reported that since he started the new oral medication he got progressively weaker and tired and he has some skin peeling of his feet and darkening of his toes on the right side. He is very weak and he still continued to have significant back pain and he cannot ambulate well and he has some numbness in his right leg as well. His appetite is poor and he is very short of breath even with slight exertion. PAST MEDICAL HISTORY: His past medical history is in addition to what is stated above in regard to his metastatic thyroid carcinoma, he had melanoma of the skin in the past, hypothyroidism, hypertension, coronary artery disease. In fact, he recently had a stent placement in October of 2016. He has a history of COPD as well. SOCIAL HISTORY: He used to smoke. He quit in 1986. His occasional alcohol drinker. No substance abuse. FAMILY HISTORY: Positive for deep venous thrombosis in his mother. His father had colon cancer. REVIEW OF SYSTEMS: Review of systems is difficult to obtain from the patient, but other than what is stated above in the history of present illness and obtained from the family, otherwise negative. CURRENT MEDICATION: His current medications include DuoNeb inhaler q.i.d. as needed, Norvasc 10 mg daily, aspirin 81 mg daily, Lipitor 40 mg daily, Pulmicort b.i.d., Plavix 75 mg daily, Proscar 5 mg daily, formoterol fumarate 20 mcg inhaled b.i.d., Lasix 10 mg b.i.d., gabapentin 600 mg t.i.d., NovoLog sliding scale, Imdur 30 mg daily, Levaquin 750 mg IV daily, Synthroid 175 mcg daily, Zestril 10 mg daily, Solu-Medrol 40 mg IV every 6 hours, Singulair 10 mg daily, Nitrostat as needed, Percocet 10/325 mg every 4 hours as needed, Protonix 40 mg daily, Zosyn 3.375 grams IV every 8 hours, Pravachol 80 mg daily. PHYSICAL EXAMINATION: He is alert. He does appear dyspneic, tired, has intermittent confusion, cachectic, elderly gentleman. He does open his eyes and answers questions appropriately. His vital signs are temperature 97.8, afebrile, pulse 96 regular, respirations 20, blood pressure 99/54. HEENT: Normocephalic, atraumatic. No obvious icterus. NECK: Supple. CHEST: Coarse breath sounds bilaterally. Lungs reveal generalized wheezing and prolonged expiration . He has crackles in the right lower lobe. Heart is tachy and regular with distant heart sounds. ABDOMEN: Soft. No tenderness. Extremities reveal 1+ edema. There is purple discoloration of his toes on the right foot. However, the foot is warm and both feet are warm actually. He has some skin peeling in the bottom of his feet. MUSCULOSKELETAL: Significant muscle weakness and motor weakness in both lower extremities. LABORATORY DATA: WBC 8.1, hemoglobin 12.2, hematocrit 36.7, platelet 135. Sodium 133, potassium 3.9, chloride 95, CO2 is 25, BUN 23, creatinine 0.7. AST is 30, ALT is 89, alkaline phosphatase 167. IMPRESSION: 1. Metastatic thyroid carcinoma with diagnostic and therapeutic circumstances stated above. 2. Rapidly declining performance status with significant weakness in part related to lenvatinib, which we just started and in part related to recent development of pneumonia as well. 3. Multiple other comorbidities and poor performance status. RECOMMENDATION: Hold lenvatinib for now. He may not be a candidate for resuming therapy in the due to his poor performance status, especially now he has developed side effect from it with hand-foot syndrome and severe weakness. Continue treatment for pneumonia and acute exacerbation with COPD. Overall prognosis is poor. I did discuss that with the patient and his family at bedside. Further decision will be made based on his overall improvement in his condition. Thank you very much for asking me to participate in the care of this nice gentleman. MMJONNAL / CHLOEN: [id number] /
[2017-06-21] MEDS: methylPREDNISolone SOD SUCCI 40 MG/ML 1 ML VIAL IV SCH ×5 (05:44→23:27)
[2017-06-21] MEDS: PIPERACILLIN-TAZOBACTAM 3.375 GM in DEXTROSE/WATER 1 50ML.BAG IVPB SCH ×2 (05:45→14:11)
[2017-06-21 06:09] LABS: Glucose,Whole Blood 135 mg/dL (75-99)
[2017-06-21] MEDS ORDERED: LEVOTHYROXINE 100 MCG TAB PO SCH (06:30)
[2017-06-21] MEDS ORDERED: LEVOTHYROXINE 75 MCG TAB PO SCH (06:30)
[2017-06-21 06:36] LABS: Basophils % (A) 0 %; Eosinophils % (A) 0 %; HCT 36.2 % (39.0-53.0); HGB 11.5 gm/dL (13.0-17.5); Lymphocytes # (A) 0.2 k/uL (1.0-4.8); Lymphocytes % (A) 3 %; MCH 32.2 pg (25.0-35.0); MCHC 31.7 g/dL (31.0-37.0); MCV 101.4 fL (80.0-100.0); Macrocytosis Slight; Mean Platelet Volume 7.8; Monocytes # (A) 0.2 k/uL (0-1.0); Monocytes % (A) 2 %; Neutrophils # (A) 7.2 k/uL (1.3-7.7); Neutrophils % (A) 94 %; RBC 3.57 m/uL (4.30-5.90); RDW 15.8 % (11.5-15.5); WBC 7.7 k/uL (3.8-10.6)
[2017-06-21 06:40] LABS: Albumin 2.2 g/dL (3.5-5.0); Calcium 6.6 mg/dL (8.4-10.2); Total Bilirubin 0.5 mg/dL (0.2-1.3); Total Protein 4.2 g/dL (6.3-8.2)
[2017-06-21] MEDS: BUDESONIDE 1 MG/2 ML NEBU INHALATION SCH ×2 (06:49→19:37)
[2017-06-21] MEDS: IPRATROPIUM-ALBUTEROL 3 ML NEB INHALATION SCH ×4 (06:49→19:37)
[2017-06-21] MEDS: FORMOTEROL FUMARATE 20 MCG/2 ML NEBU INHALATION SCH ×2 (06:49→19:37)
[2017-06-21] MEDS: oxyCODONE-APAP 10-325MG 1 EACH TAB PO PRN (07:06)
[2017-06-21 07:21] LABS: Platelet Count 80 k/uL (150-450)
[2017-06-21] MEDS ORDERED: predniSONE 10 MG TAB PO SCH (09:00)
[2017-06-21] MEDS ORDERED: LENVATINIB MESYLATE 20 MG PO SCH (09:00)
[2017-06-21] MEDS ORDERED: LENVIMA PO SCH (09:00)
[2017-06-21] MEDS ORDERED: amLODIPine 10 MG TAB PO SCH (09:00)
[2017-06-21] MEDS ORDERED: ATORVASTATIN 40 MG TAB PO SCH (09:00)
[2017-06-21] MEDS ORDERED: CLOPIDOGREL 75 MG TAB PO SCH (09:00)
[2017-06-21] MEDS ORDERED: PANTOPRAZOLE 40 MG TABLET PO SCH (09:00)
[2017-06-21] MEDS ORDERED: LISINOPRIL 10 MG TAB PO SCH (09:00)
[2017-06-21] MEDS ORDERED: ASPIRIN 81 MG PO SCH (09:00)
[2017-06-21] MEDS ORDERED: FINASTERIDE 5 MG TAB PO SCH (09:00)
[2017-06-21] MEDS ORDERED: ISOSORBIDE MONONITRATE ER 30 MG TAB.ER.24H PO SCH (09:00)
[2017-06-21] MEDS: FUROSEMIDE 10 MG TAB PO SCH ×2 (09:16→14:20)
[2017-06-21] MEDS: MONTELUKAST 10 MG TAB PO SCH (09:17)
[2017-06-21] MEDS: MORPHINE SULFATE 2 MG/ML SYRINGE IVP PRN ×2 (10:47→13:29)
[2017-06-21 11:05] VITALS: BP 91/57; PULSE 94; RESP 12; TEMP 97.6
--- NOTE | 2017-06-21 13:26 | CDI ---
Last Revision, April 2017 Documentation Clarification Form Date: 06/21/2017 12:54:00 PM From: Chely Pike RN, CCDS Admit Date: 06/20/2017 12:40:00 AM Patient Name: Sp Sam Visit Number: [id number] ATTENTION: The Clinical Documentation Specialists (CDI) and [facility] Coding Staff appreciate your assistance in clarifying documentation. Please respond to the clarification below the line at the bottom and electronically sign. The CDI & [facility] Coding staff will review the response and follow-up if needed. Please note: Queries are made part of the Legal Health Record. If you have any questions, please contact the author of this message via ITS. Dr. Mayberry Pneumonia was documented in your H&P and requires further specificity. History/Risk Factors: Thyroid cancer receiving chemo w mets to l5-s1, cad, gerd, hyperlipidemia, pad Clinical Indicators: 06/20 H&P: "Sepsis secondary to pneumonia acute COPD exacerbation likely due to pneumonia." WBC: 8.1/7.7 Left Shift: 92/94 CXR: "Right middle lobe and right lower lobe pneumonia appears new compared to old exam. Small right pleural effusion. No heart failure." Lung/Breathing assessment: CHEST EXAMINATION: Trachea is central. Symmetrical expansion. Bilateral diminished breath sounds and rhonchi positive. Treatment: Antibiotics: Levaquin IVPB, Zosyn 3.375 gm ivpb q * hrs IVF Bolus O2: 2L Nasal cannula increased to 15 l high flow Breathing TX: none ordered In order to capture the severity of condition, please clarify if the condition signifies and you are treating for: Aspiration Pneumonia, identify if: Due to solids or liquids Gram Negative Pneumonia Due to Strep Due to Staph Due to E. coli Other bacteria (please specify) Viral Pneumonia, specify casual organism (if known) Ventilator Associated Pneumonia Healthcare Acquired Pneumonia/Pneumonia, unspecified Other, please specify Unable to determine Please continue to document in your progress notes and discharge summary in order to capture severity of illness and risk of mortality. Include clinical findings that support your diagnosis. MTDD
--- NOTE | 2017-06-21 13:54 | CDI ---
Last Revision, April 2017 Documentation Clarification Form Date: 06/21/2017 1:28:00 PM From: Chely Pike RN, CCDS Admit Date: 06/20/2017 12:40:00 AM Patient Name: Sp Sam Visit Number: [id number] ATTENTION: The Clinical Documentation Specialists (CDI) and [facility] Coding Staff appreciate your assistance in clarifying documentation. Please respond to the clarification below the line at the bottom and electronically sign. The CDI & [facility] Coding staff will review the response and follow-up if needed. Please note: Queries are made part of the Legal Health Record. If you have any questions, please contact the author of this message via ITS. Dr. Shanelle Mayberry Confusion was documented in the H&P and Consults and requires further specificity. Patient history/risk factors: Cancer with mets, HTN, hyperlipidemia, receiving radiation Clinical Indicators: 06/20 H&P: "Patient became very delirious and seems to be more confused than.Patient is lying in the bed comfortably, wake alert and appears to be mild distress due to shortness of breath Patient is very confused Neurologically awake, alert but confused. well-coordinated movements." Labs: BUN 23/55, Cr .7/2.7, Lactic Acid: 5/4/2.6, trop .047/.262 X Ray: "Right middle lobe and right lower lobe pneumonia appears new compared to old exam. Small right pleural effusion. No heart failure." Treatment: Neurontin 600 mg po TID, Hexadrol 4 mg PO BID. Percocet 10/325 q 4 hrs Iv Levaquin and IVPBR Zosyn 2.5 L IVF Bolus In your professional opinion, please clarify the etiology of the altered mental status, if known. Encephalopathy (specify Type and Underlying Medical Illness) Dementia (if know, specify Type and if with/without Behavioral Disturbance) Other condition (please specify) Unable to determine Please continue to document in your progress notes and discharge summary in order to capture severity of illness and risk of mortality. Include clinical findings that support your diagnosis. MTDD
[2017-06-21] MEDS ORDERED: ACETAMINOPHEN IV (For NPO) 1,000 MG in EMPTY BAG 1 BAG IVPB ONE (15:32)
--- NOTE | 2017-06-21 16:26 | P.PN ---
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 The patient is receiving chemotherapy for that malignancy. His cancer doctor is Dr. Tomlin. The patient is not a particularly good historian but what I gather as over the last couple of days or so maybe a bit longer, he's been having issues with his breathing. He's had some chest congestion and cough. Producing some phlegm. Also some shakes. In addition he has some sharp chest pain. The patient was seen in the emergency room and admitted mid with a diagnosis of possible right lower lobe pneumonia. Again most of the history is obtained from the and the son who was in the room with him. Apparently the patient sees my partner as his primary doctor as well as his lung doctor. He apparently does have a history of underlying COPD. In addition to COPD, the patient has a history of CAD gastroesophageal reflux disease hyperlipidemia hypertension myocardial infarction a previous episode of pneumonia thyroid cancer and peripheral artery disease. The patient's thyroid cancer is metastatic to L5-S1 where he has received radiation treatment. The patient wishes to BE a no code and we entered reveals orders into the chart. In addition, I add some updrafts in the form of DuoNeb 4 times a day and when necessary as well as Perforomist and Pulmicort 1 mg twice a day. Finally, the patient had a recent reduction in his steroids and at that time, his respiratory status seemed to deteriorate a bit according to his family. The patient will be given Solu-Medrol in place of his small dose of oral prednisone to see if we can improve his overall lung function. On 06/21/2017 patient seen in follow selective care unit. His FiO2 is currently at 15 L per high flow nasal cannula with O2 sat at 93%. Patient's condition continues to deteriorate, he has intermittent confusion, she is dyspneic at rest, acute, he is hypotensive. Patient has refused any further treatment, requesting to go home today. Family at the bedside, they have met with the [facility] and [facility] sedation this afternoon, trying to transfer patient home per his request. Objective - Vital Signs Vital signs: Vital Signs Temp 97.6 F 06/21/17 08:00 Pulse 94 01/22/18 08:00 Resp 12 06/21/17 08:00 BP 91/57 06/21/17 08:00 Pulse Ox 93 L 06/21/17 08:00 Intake & Output 06/20/17 06/21/17 06/21/17 18:59 06:59 18:59 Intake Total 160 Output Total 0 0 Balance 160 0 Weight 89.4 kg Intake: Oral 160 Output: Urine 0 0 Other: Voiding Method Urinal Urinal Urinal # Voids 0 0 - Exam Patient is confused, but awake, denies any pain, moderately dyspneic at rest. HEENT examination is grossly unremarkable. Mucous membranes are moist. No oral lesions. Neck supple. Full range of motion. No adenopathy thyromegaly or neck vein distention. Cardiovascular examination reveals regular rhythm rate. S1-S2 normal. No S3 or S4. No discernible murmur noted. Lungs reveal scattered rhonchi. Breath sounds equal. He doesn't really take deep breaths. A few scattered crackles. No wheezes. Breath sounds are equal bilaterally. Abdomen soft bowel sounds are heard. No masses or tenderness. Extremities are intact. No cyanosis clubbing or edema. Skin is without rash or lesion. Neurologic examination is difficult to perform but he does move all 4 extremities. - Labs CBC & Chem 7: 06/21/17 06:10 06/21/17 06:10 Labs: Abnormal Lab Results - Last 24 Hours (Table) 06/20/17 06/20/17 06/20/17 Range/Units 02:40 16:27 21:01 RBC (4.30-5.90) m/uL Hgb (13.0-17.5) gm/dL Hct (39.0-53.0) % MCV (80.0-100.0) fL RDW (11.5-15.5) % Plt Count (150-450) k/uL Lymphocytes # (1.0-4.8) k/uL Sodium (137-145) mmol/L Carbon Dioxide (22-30) mmol/L BUN (9-20) mg/dL Creatinine (0.66-1.25) mg/dL Glucose (74-99) mg/dL POC Glucose (mg/dL) 182 H 143 H (75-99) mg/dL Hemoglobin A1c 8.1 H (4.0-6.0) % Plasma Lactic Acid Sadi (0.7-2.0) mmol/L Calcium (8.4-10.2) mg/dL ALT (21-72) U/L Total Protein (6.3-8.2) g/dL Albumin (3.5-5.0) g/dL 06/21/17 06/21/17 06/21/17 Range/Units 06:07 06:10 06:10 RBC 3.57 L (4.30-5.90) m/uL Hgb 11.5 L (13.0-17.5) gm/dL Hct 36.2 L (39.0-53.0) % MCV 101.4 H (80.0-100.0) fL RDW 15.8 H (11.5-15.5) % Plt Count 80 L (150-450) k/uL Lymphocytes # 0.2 L (1.0-4.8) k/uL Sodium 135 L (137-145) mmol/L Carbon Dioxide 19 L (22-30) mmol/L BUN 55 H (9-20) mg/dL Creatinine 2.70 H (0.66-1.25) mg/dL Glucose 115 H (74-99) mg/dL POC Glucose (mg/dL) 135 H (75-99) mg/dL Hemoglobin A1c (4.0-6.0) % Plasma Lactic Acid Sadi (0.7-2.0) mmol/L Calcium 6.6 L (8.4-10.2) mg/dL ALT 76 H (21-72) U/L Total Protein 4.2 L (6.3-8.2) g/dL Albumin 2.2 L (3.5-5.0) g/dL 06/21/17 06/21/17 Range/Units 06:10 10:15 RBC (4.30-5.90) m/uL Hgb (13.0-17.5) gm/dL Hct (39.0-53.0) % MCV (80.0-100.0) fL RDW (11.5-15.5) % Plt Count (150-450) k/uL Lymphocytes # (1.0-4.8) k/uL Sodium (137-145) mmol/L Carbon Dioxide (22-30) mmol/L BUN (9-20) mg/dL Creatinine (0.66-1.25) mg/dL Glucose (74-99) mg/dL POC Glucose (mg/dL) (75-99) mg/dL Hemoglobin A1c (4.0-6.0) % Plasma Lactic Acid Sadi 3.1 H* 2.6 H* (0.7-2.0) mmol/L Calcium (8.4-10.2) mg/dL ALT (21-72) U/L Total Protein (6.3-8.2) g/dL Albumin (3.5-5.0) g/dL Microbiology - Last 24 Hours (Table) 06/20/17 12:00 Gram Stain - Preliminary Sputum Sputum Culture - Preliminary Presumptive Staph aureus 06/19/17 23:00 Urine Culture - Final Urine,Voided 06/20/17 02:40 Blood Culture - Preliminary Blood No Growth after 24 hours 06/19/17 22:27 Blood Culture - Preliminary Blood No Growth after 24 hours Assessment and Plan Plan: Assessment COPD exacerbation complicated by right lower lobe pneumonia Thyroid cancer metastatic to spine Gastroesophageal reflux disease Myocardial infarction Hypertension Hyperlipidemia History of melanoma Previous history of stent placement for CAD Plan: Patient has requested to go home with comfort care, and family has decided to proceed with comfort care at this time. Patient patient's family has met with hospice, antisipate transfer with hospice care today. I performed a history & physical examination of the patient and discussed their management with my nurse practitioner, Daphne Mcconnell. I reviewed the nurse practitioner's note and agree with the documented findings and plan of care. Lung sounds are positive for scattered rhonchi and rales. The findings and the impression was discussed with the patient. I attest to the documentation by the nurse practitioner. Time with Patient: Less than 30
[2017-06-21] MEDS ORDERED: ACETAMINOPHEN SUPPOSITORY 650 MG SUPP RECTAL PRN (17:19)
[2017-06-21] MEDS ORDERED: HALOPERIDOL LACTATE 5 MG/ML 1 ML VIAL IM PRN (17:19)
[2017-06-21] MEDS ORDERED: LORazepam 2 MG/ML INJ IV PRN (17:25)
[2017-06-21] MEDS ORDERED: METOCLOPRAMIDE 5 MG/ML 2 ML VIAL IVP PRN (17:25)
[2017-06-21] MEDS ORDERED: ARTIFICIAL TEARS-HYPROMELLOSE DROPS 15 ML BTL BOTH EYES PRN (17:25)
[2017-06-21] MEDS ORDERED: ATROPINE OPHTH SOLN 1% 5ML BTL SUBLINGUAL PRN (17:25)
[2017-06-21] MEDS ORDERED: MORPHINE SULFATE 2 MG/ML SYRINGE IV PRN ×2 (17:25)
[2017-06-21] MEDS ORDERED: HYDROCORTISONE 1% CREAM 30 GM TUBE TOPICAL PRN (17:25)
[2017-06-21] MEDS ORDERED: DRY MOUTH SPRAY 44.3 SPRAY/44.3 ML SPRAY MUCOUS MEM PRN (17:25)
[2017-06-21] MEDS ORDERED: IBUPROFEN 400 MG TAB PO PRN (17:25)
[2017-06-21] MEDS ORDERED: SCOPOLAMINE 1.5MG/72HR PATCH TRANSDERM PRN (17:25)
[2017-06-21] MEDS ORDERED: ACETAMINOPHEN IV (For NPO) 1,000 MG in EMPTY BAG 1 BAG IVPB PRN (17:25)
[2017-06-21] MEDS ORDERED: ONDANSETRON 4 MG/2 ML VIAL IVP PRN (17:25)
--- NOTE | 2017-06-21 21:54 | P.PN ---
Subjective Progress Note Date: 06/21/17 Principal diagnosis: Pneumonia and COPD exacerbation lorri is a 76-year-old malewith a known history of thyroid cancer currently receiving chemotherapy, CAD gastroesophageal reflux disease hyperlipidemia hypertension myocardial infarction a previous episode of pneumonia thyroid cancer and peripheral artery disease. The patient's thyroid cancer is metastatic to L5-S1 where he has received radiation treatment. came to ER with the c/o shortness of breathstarted afterdinner last night. Patient also complasharp chest pain. Patient became very delirious and seems to be more confused than. Patient was brought to the hospital for furthe Patient otherwise has been having cough without much sputum production. Patient denies any abdominal pain patient denies nausea vomiting diarrhea. Patient denies any rashes. Patient does complain of right ankle and foot pain he states he injured about 2 weeks ago but no one checked out. Patient denies any dysuria hematuria urinary frequency. Patient denies any flu shot this year. complete review of systems could not be obtained from the patient except as above. 06/21/2017 Patient has become more confused and currently requiring high flow nausea cannula oxygen. Patient and family refused any further care and is discussing with [facility] facility. We will continue the comfort care and morphine for when necessary for pain as well as Ativan when anxiety. Objective - Vital Signs Vital signs: Vital Signs Temp 97.6 F 06/21/17 08:00 Pulse 94 06/21/17 08:00 Resp 12 06/21/17 08:00 BP 91/57 06/21/17 08:00 Pulse Ox 93 L 06/21/17 08:00 Intake & Output 06/21/17 06/21/17 06/22/17 06:59 18:59 06:59 Intake Total 40 Output Total 0 Balance 0 40 Weight 89.4 kg Intake: IV 40 0.9 40 Output: Urine 0 Other: Voiding Method Urinal Urinal # Voids 0 - Labs CBC & Chem 7: 06/21/17 06:10 06/21/17 06:10 Labs: Abnormal Lab Results - Last 24 Hours (Table) 06/20/17 06/21/17 06/21/17 Range/Units 02:40 06:07 06:10 RBC (4.30-5.90) m/uL Hgb (13.0-17.5) gm/dL Hct (39.0-53.0) % MCV (80.0-100.0) fL RDW (11.5-15.5) % Plt Count (150-450) k/uL Lymphocytes # (1.0-4.8) k/uL Sodium 135 L (137-145) mmol/L Carbon Dioxide 19 L (22-30) mmol/L BUN 55 H (9-20) mg/dL Creatinine 2.70 H (0.66-1.25) mg/dL Glucose 115 H (74-99) mg/dL POC Glucose (mg/dL) 135 H (75-99) mg/dL Hemoglobin A1c 8.1 H (4.0-6.0) % Plasma Lactic Acid Sadi (0.7-2.0) mmol/L Calcium 6.6 L (8.4-10.2) mg/dL ALT 76 H (21-72) U/L Total Protein 4.2 L (6.3-8.2) g/dL Albumin 2.2 L (3.5-5.0) g/dL 06/21/17 06/21/17 06/21/17 Range/Units 06:10 06:10 10:15 RBC 3.57 L (4.30-5.90) m/uL Hgb 11.5 L (13.0-17.5) gm/dL Hct 36.2 L (39.0-53.0) % MCV 101.4 H (80.0-100.0) fL RDW 15.8 H (11.5-15.5) % Plt Count 80 L (150-450) k/uL Lymphocytes # 0.2 L (1.0-4.8) k/uL Sodium (137-145) mmol/L Carbon Dioxide (22-30) mmol/L BUN (9-20) mg/dL Creatinine (0.66-1.25) mg/dL Glucose (74-99) mg/dL POC Glucose (mg/dL) (75-99) mg/dL Hemoglobin A1c (4.0-6.0) % Plasma Lactic Acid Sadi 3.1 H* 2.6 H* (0.7-2.0) mmol/L Calcium (8.4-10.2) mg/dL ALT (21-72) U/L Total Protein (6.3-8.2) g/dL Albumin (3.5-5.0) g/dL Microbiology - Last 24 Hours (Table) 06/20/17 12:00 Gram Stain - Preliminary Sputum Sputum Culture - Preliminary Presumptive Staph aureus 06/19/17 23:00 Urine Culture - Final Urine,Voided 06/20/17 02:40 Blood Culture - Preliminary Blood No Growth after 24 hours 06/19/17 22:27 Blood Culture - Preliminary Blood No Growth after 24 hours Assessment and Plan Assessment: shortness of breath secondary to right lower lobe pneumonias well as COPD Acute metabolic encephalopathy secondary to infection Sepsis secondary to pneumonia. Possible gram-negative acute COPD exacerbationlikely due to pneumonia elevated troponin level likely due to demand mismatch. hypovolemic hyponatremia Elevated liver enzymes metastatic thyroid cancer currently undergoing chemotherapy history of coronary artery disease status post stent placement hypertension Hyperlipidemia history of [place] GERD dVT prophylaxis CODE STATUS: Comfort Care plan: patient will be continued onantibiotics in the form of Zosyn and Levaquin Continue withe Solu-Medrol and breathing treatments and follow. Cardiology and pulmonary is followng. patient was given fluid boluses for lactic acidosis. Currently patient is refusing any further care. Family is requesting to be is for to hospice care. .prognosis ispoor Time with Patient: Greater than 30
[2017-06-22] MEDS: methylPREDNISolone SOD SUCCI 40 MG/ML 1 ML VIAL IV SCH (01:49)
[2017-06-22] MEDS: BUDESONIDE 1 MG/2 ML NEBU INHALATION SCH (07:59)
[2017-06-22] MEDS: FORMOTEROL FUMARATE 20 MCG/2 ML NEBU INHALATION SCH (07:59)
[2017-06-22] MEDS: IPRATROPIUM-ALBUTEROL 3 ML NEB INHALATION SCH (07:59)
[2017-06-22] MEDS: MONTELUKAST 10 MG TAB PO SCH (08:59)
--- NOTE | 2017-06-22 11:35 | CDI ---
Admitted with Sepsis sec to Bacterial Pneumonia most likely G-ve Last Revision, April 2017 Documentation Clarification Form 2nd Request Date: 06/21/2017 12:54:00 PM From: Chely Pike RN, CCDS Admit Date: 06/20/2017 12:40:00 AM Patient Name: Sp Sam Visit Number: [id number] ATTENTION: The Clinical Documentation Specialists (CDI) and [facility] Coding Staff appreciate your assistance in clarifying documentation. Please respond to the clarification below the line at the bottom and electronically sign. The CDI & [facility] Coding staff will review the response and follow-up if needed. Please note: Queries are made part of the Legal Health Record. If you have any questions, please contact the author of this message via ITS. Dr. Wilburn Pneumonia was documented in your H&P and requires further specificity. History/Risk Factors: Thyroid cancer receiving chemo w mets to l5-s1, cad, gerd, hyperlipidemia, pad Clinical Indicators: 06/20 H&P: "Sepsis secondary to pneumonia acute COPD exacerbation likely due to pneumonia." WBC: 8.1/7.7 Left Shift: 92/94 CXR: "Right middle lobe and right lower lobe pneumonia appears new compared to old exam. Small right pleural effusion. No heart failure." Lung/Breathing assessment: "CHEST EXAMINATION: Trachea is central. Symmetrical expansion. Bilateral diminished breath sounds and rhonchi positive." Treatment: Antibiotics: levaquin IVPB, Zosyn 3.375 gm ivpb q 8 hrs IVF Bolus O2: 2L Nasal cannula increased to 15 l high flow Breathing TX: none ordered In order to capture the severity of condition, please clarify if the condition signifies and you are treating for: Aspiration Pneumonia, identify if: Due to solids or liquids Bacterial Pneumonia, specify causal organism (if known) Gram Negative Pneumonia Due to Strep Due to Staph Due to E. Coli Other bacteria (please specify) Viral Pneumonia, specify casual organism (if known) Ventilator Associated Pneumonia Healthcare Acquired Pneumonia/Pneumonia, unspecified Other, please specify Unable to determine Please continue to document in your progress notes and discharge summary in order to capture severity of illness and risk of mortality. Include clinical findings that support your diagnosis. MTDD
--- NOTE | 2017-06-22 20:01 | PN ---
PROGRESS NOTE DATE OF SERVICE: 06/22/2017. BRIEF HISTORY: A 76-year-old male patient with history of thyroid cancer, currently on chemotherapy, history of coronary artery disease, hypertension, hyperlipidemia, myocardial infarction in the past, has been admitted to the hospital with right lower lobe pneumonia, sepsis secondary to pneumonia, acute exacerbation COPD, elevated troponins. The patient is in bed, seems to be in no acute distress. Opens eyes on verbal stimulation. PHYSICAL EXAMINATION: VITAL SIGNS: Temperature of 99, pulse 104, respirations 20, pulse 100, blood pressure of 105/65. HEENT: Atraumatic, normocephalic. Pupils are equal and reactive to light. Buccal mucosa is fair. NECK: Supple. LUNGS: Positive scattered rhonchi and wheezes. HEART: Tachycardic. Regular rhythm. ABDOMEN: Soft, nontender. Bowel sounds positive. EXTREMITIES: 1+ edema. LABS: On admission, CBC, white blood count of 7.7, hemoglobin 11.5, hematocrit 36.2, and platelet count of 80,000. Chemical profile, sodium 135, potassium 5.0, chloride 102, bicarb 19, BUN 55, creatinine 2.7. Last plasma lactic acid level of 2.6, calcium 6.6, AST of 76. ASSESSMENT: 1. Acute exacerbation of chronic obstructive pulmonary disease. 2. Sepsis secondary to pneumonia. 3. Right lower lobe pneumonia. 4. Elevated troponin, possibly demand mismatch. 5. Hyponatremia. 6. Elevated liver enzymes. 7. Metastatic thyroid cancer. The patient is on chemo. 8. Coronary artery disease. Patient is status post stent placement. 9. History of hypertension. 10.Hyperlipidemia. The patient has family members at the bedside, sister and son are actively asking numerous questions. The patient has been comfortable, but when he does wake up he becomes very anxious and agitated, which affects his breathing. Other than that, the patient seems to be pain free. The patient's family has decided to admit the patient to hospice. The patient remains on IV Ativan every 6 hours for anxiety and morphine sulfate 2 mg IV every 15 minutes. Has an order for scopolamine patch. IV antibiotics have been discontinued. At this time the patient does seem comfortable, does not seem to be in any acute distress. We will not make any changes to patient's medication regime. Will continue to make the patient symptom free and comfortable. MMODL / IJN: [id number] /
[2017-06-22] MEDS ORDERED: LEVOFLOXACIN 750 MG TAB PO SCH (21:00)
--- NOTE | 2017-06-23 20:32 | PN ---
PROGRESS NOTE DATE OF SERVICE: 06/23/2017 The patient is a 76-year-old male patient with history of thyroid cancer on chemo with a history of coronary artery disease, hypertension, hyperlipidemia, myocardial infarction, admitted with right lower lobe pneumonia, sepsis secondary to pneumonia, acute exacerbation of COPD, elevated troponins. Patient has been admitted to hospice care. His vital signs are pulse of 95, respirations 16. He is on 15L of oxygen. GENERAL: Patient lying with eyes closed, does not seem to be in any acute distress. He is atraumatic, normocephalic. Buccal mucosa is dry. NECK: Supple. LUNGS: Scattered rhonchi and wheezes. Heart is tachycardic, regular rhythm. ABDOMEN: Soft, nontender. Bowel sounds positive. EXTREMITIES: Patient has 1 to 2+ pitting edema. LABS ON ADMISSION: CBC: White blood count 7.7, hemoglobin 11.5, hematocrit 36.2 and platelet count of 80,000. Chemical profile: Sodium 135, potassium 5.0, chloride 102, bicarb 19, BUN 55, creatinine 2.7. Last plasma lactic acid level of 2.6. ASSESSMENT: 1. Acute exacerbation chronic obstructive pulmonary disease. 2. Sepsis secondary to pneumonia. 3. Right lower lobe pneumonia. 4. Elevated troponin, possibly demand mismatch. 5. Hyponatremia. 6. Elevated liver enzymes. 7. Metastatic thyroid cancer. 8. Coronary artery disease. The patient is status post stent placement. 9. Hypertension. 10.Hyperlipidemia. The patient has been admitted to hospice care, is on IV morphine and Ativan for pain and symptom control. IV antibiotics have been discontinued. Continue with pain and symptom management. MMODL / IJN: [id number] /
--- NOTE | 2017-07-11 09:24 | DS ---
DISCHARGE SUMMARY The patient . ADMISSION DIAGNOSES: 1. Right lower lobe pneumonia. 2. Sepsis secondary to pneumonia. 3. Acute exacerbation of chronic obstructive pulmonary disease. 4. Elevated troponin, possibly supply demand mismatch secondary to pneumonia. 5. Hypovolemic hyponatremia. 6. Elevated liver enzymes. 7. Metastatic thyroid cancer, on chemotherapy. 8. Coronary artery disease. 9. Hypertension. 10.Hyperlipidemia. FINAL DIAGNOSES: 1. Right lower lobe pneumonia. 2. Sepsis secondary to pneumonia. 3. Acute exacerbation of chronic obstructive pulmonary disease. 4. Elevated troponin, possibly supply demand mismatch secondary to pneumonia. 5. Hypovolemic hyponatremia. 6. Elevated liver enzymes. 7. Metastatic thyroid cancer, on chemotherapy. 8. Coronary artery disease. 9. Hypertension. 10.Hyperlipidemia. BRIEF HISTORY: This patient was a 76-year-old male patient with a history of thyroid cancer on chemotherapy, history of hypertension, hyperlipidemia, myocardial infarction, who presented to the ER with a complaint of shortness of breath. The patient was also very confused and delirious. There was also a history of cough with sputum production. PAST MEDICAL HISTORY: Significant for: 1. Asthma. 2. Coronary artery disease. 3. Cancer. 4. COPD. 5. Gastroesophageal reflux disease. 6. Hyperlipidemia. 7. Hypertension. 8. Myocardial infarction. 9. Thyroid disorder. MEDICATIONS: 1. Aspirin 81 mg daily. 2. Proscar 5 mg daily. 3. Levothyroxine 175 mcg daily. 4. Norvasc 10 mg daily. 5. Singulair 10 mg daily. 6. Zestril 10 mg daily. 7. Neurontin 600 mg t.i.d. 8. Prednisone 10 mg daily. 9. Imdur 30 mg daily. 10.Lipitor 40 mg daily. 11.Plavix 75 mg daily. 12.Xanax 0.25 mg every 8 hours. 13.Symbicort 2 puffs b.i.d. 14.Lasix 10 mg b.i.d. 15.Omeprazole 40 mg daily. 16.Pravachol 80 mg daily. PHYSICAL EXAMINATION: VITAL SIGNS: Temperature 103.1, pulse 74, respirations 20, O2 saturation 90% on room air, blood pressure 185/99. CONSTITUTIONAL: The patient was in respiratory distress, confused. Atraumatic, normocephalic. HEENT: Pupils equal and reactive to light. Extraocular movements intact. Buccal mucosa fair. NECK: Supple. No goiter or lymphadenopathy. JVD is negative. LUNGS: Breath sounds decreased in both lower lung pool. HEART: Regular rate and rhythm without any murmurs, gallop rhythm. ABDOMEN: Soft, nontender, nondistended. Bowel sounds positive. EXTREMITIES: No edema, clubbing or cyanosis. LABORATORY DATA: 36.7, sodium 137, potassium 6.9, chloride 97, bicarb 25, BUN 17. . BRIEF HOSPITAL COURSE: The patient was admitted to monitored floor, was started on IV fluids and Levaquin, was also started on IV Solu-Medrol, bronchodilator and nebulizer treatments. Cardiology and pulmonary consultations were done. The patient was also given some fluids for dehydration. The patient's condition continued to worsen but his confusion did improve, so after discussion with the family it was felt that we would refer to hospice for further symptomatic care and management. The family agreed with that. The patient slowly deteriorated and on 06/23/2017. MMJONNAL / IJNathaniel: [id number] /
== END 2017-06-22 09:54 | disposition hospice, home (50) | DRG 871 ==
LOC: EC 21:57 → 6SEL 06-20 00:40
PROVIDERS: ADMIT Internal Medicine; ATTEND Internal Medicine
DX: A41.50 Gram-negative sepsis, unspecified (principal); J15.6 Pneumonia due to other Gram-negative bacteria; G93.41 Metabolic encephalopathy; C79.51 Secondary malignant neoplasm of bone; R64 Cachexia; E87.1 Hypo-osmolality and hyponatremia; J44.0 Chronic obstructive pulmonary disease with (acute) lower respiratory infection; E83.51 Hypocalcemia; J44.1 Chronic obstructive pulmonary disease with (acute) exacerbation; E78.5 Hyperlipidemia, unspecified; E89.0 Postprocedural hypothyroidism; F32.9 Major depressive disorder, single episode, unspecified; F41.9 Anxiety disorder, unspecified; I10 Essential (primary) hypertension; I25.10 Atherosclerotic heart disease of native coronary artery without angina pectoris; I25.2 Old myocardial infarction; I73.9 Peripheral vascular disease, unspecified; K21.9 Gastro-esophageal reflux disease without esophagitis; R73.9 Hyperglycemia, unspecified; G89.29 Other chronic pain; M54.9 Dorsalgia, unspecified; J45.909 Unspecified asthma, uncomplicated; R20.0 Anesthesia of skin; R74.8 Abnormal levels of other serum enzymes; Z51.5 Encounter for palliative care; Z66 Do not resuscitate; Z95.5 Presence of coronary angioplasty implant and graft; Z92.3 Personal history of irradiation; Z87.891 Personal history of nicotine dependence; Z86.14 Personal history of Methicillin resistant Staphylococcus aureus infection; Z85.850 Personal history of malignant neoplasm of thyroid; Z85.820 Personal history of malignant melanoma of skin; Z79.02 Long term (current) use of antithrombotics/antiplatelets; Z79.51 Long term (current) use of inhaled steroids; Z79.82 Long term (current) use of aspirin; Z79.899 Other long term (current) drug therapy; Z79.52 Long term (current) use of systemic steroids; Z80.0 Family history of malignant neoplasm of digestive organs
CPT/HCPCS: 36415; 71046; 80053; 81001; 82009; 82550; 82553; 83036; 83605; 83735; 83880; 84484; 85025; 85379; 85610; 85730; 87040; 87070; 87077; 87086; 87186; 87205; 87502; 93005; 94640; 94760; 96361; 96365; 96375; 99291